=== PATIENT | female | born 1975 | race Hispanic/Latino ===

== ENCOUNTER 2018-02-17 20:44 | Emergency (ER) | payer OTHER ==
[~2018-02-17] VITALS: Ht 157.5 cm; Wt 147.4 kg
--- OUTSIDE RECORDS SUMMARY | 2018-02-17 20:47 | XMS REPORT | Summary of Care ---
Author Author [facility] Organization [facility] Address Unknown Phone Unavailable Encounter ELHAM Saavedra(AMINA) [id number] Date(s): 05/09/16 - 05/09/16 [facility] [address] [place] [address]- [phone] Discharge Disposition: Home or Self Care Attending Physician: Marco Antonio Hernández MD Referring Physician: Marco Antonio Hernández MD Vital Signs 1 2 3 Most recent to oldest [Reference Range]: 157.48 cm (05/07/16 7:46 AM) Height 98.2 DegF (05/07/16 7:50 AM) Temperature Oral [96.4-99.1 DegF] 102/59 mmHg (05/09/16 11:45 AM) 102/58 mmHg (05/09/16 10:30 AM) 96/51 mmHg (05/09/16 10:15 AM) Blood Pressure [90-140/60-90 mmHg] 17 BRMIN (05/09/16 10:15 AM) 18 BRMIN (05/09/16 10:00 AM) 18 BRMIN (05/09/16 9:45 AM) Respiratory Rate [14-20 BRMIN] 86 bpm (05/07/16 7:50 AM) Peripheral Pulse Rate [60-100 bpm] 134.545 kg (05/07/16 7:46 AM) Weight 54.25 m2 (05/07/16 7:46 AM) Body Mass Index Problem List Condition Effective Dates Status Health Status Informant Morbid Active obesity(Confirmed) Obesity(Confirmed) Resolved Allergies, Adverse Reactions, Alerts Substance Reaction Severity Status NKDA Active Medications acetaminophen (ANES) Route: IV, Drug form: INJ, ONCE, Stop date: 05/09/16 8:58:00 PR INTERN Start Date: 05/09/16 Stop Date: 05/09/16 Status: Completed ANES flumazenil 0.2 mg, 2 mL, Route: IVP, Drug form: INJ, PRN, Dosing Weight 134.545, kg, PRN Be nzodiazepine Reversal, Initial dose, Start date: 05/09/16 9:49:00 PR INTERN, Duration: 30 day, Stop date: 06/08/16 10:48:00 CDT Notes: (Same as: Romazicon) Start Date: 05/09/16 Stop Date: 05/10/16 Status: Discontinued ANES HYDROmorphone 0.5 mg, 0.5 mL, Route: IVP, Drug form: INJ, Q5Min, Dosing Weight 134.545, kg, OK N Pain Score 7-10, Start date: 05/09/16 9:49:00 PR INTERN, Duration: 4 doses or times, Stop date: Limited # of times Start Date: 05/09/16 Stop Date: 05/10/16 Status: Discontinued ANES ibuprofen 600 mg, 1 tab, Route: PO, Drug form: TAB, Q6H, Dosing Weight 134.545, kg, PRN Pa in Score 1-3, Start date: 05/09/16 9:49:00 PR INTERN, Duration: 30 day, Stop date: 9:48:00 CDT Notes: (Same as: Motrin)"Do Not Crush" Take with food. Start Date: 05/09/16 Stop Date: 05/10/16 Status: Discontinued ANES ketOROLAC 30 mg, 1 mL, Route: IVP, Drug form: INJ, ONCE, Dosing Weight 134.545, kg, Start date: 05/09/16 9:49:00 PR INTERN, Duration: 1 doses or times, Stop date: 05/09/16 9:49 :00 PR INTERN Notes: (Same as:Toradol) IV bolus must be given >15 seconds. Give IM administration slowly and deeply into the muscle.Not for use > 4 days MEDICATION WASTE Product Size: 30 mgProduct Wasted: ___ mg Start Date: 05/09/16 Stop Date: 05/09/16 Status: Ordered ANES morphine Sulfate 2 mg, 1 mL, Route: IVP, Drug form: INJ, Q5Min, Dosing Weight 134.545, kg, PRN Pa in Score 4-6, Start date: 05/09/16 9:49:00 PR INTERN, Duration: 5 doses or times, Stop date: Limited # of times Notes: (Same as:MORPhine Sulfate) Start Date: 05/09/16 Stop Date: 05/10/16 Status: Discontinued ANES morphine Sulfate 4 mg, 1 mL, Route: IVP, Drug form: SOLN, Q5Min, Dosing Weight 134.545, kg, PRN P ain Score 7-10, Start date: 05/09/16 9:49:00 PR INTERN, Duration: 3 doses or times, St op date: Limited # of times Notes: (Same as:MORPhine Sulfate) Start Date: 05/09/16 Stop Date: 05/10/16 Status: Discontinued ANES naloxone 0.4 mg, 1 mL, Route: IVP, Drug form: INJ, Q2MIN, Dosing Weight 134.545, kg, PRN Narcotic Reversal, Start date: 05/09/16 9:49:00 PR INTERN, Duration: 8 doses or times, Stop date: Limited # of times Notes: Same as Narcan Start Date: 05/09/16 Stop Date: 05/10/16 Status: Discontinued ANES ondansetron 4 mg, 2 mL, Route: IVP, Drug form: INJ, ONCE, Dosing Weight 134.545, kg, PRN Hector sea & Vomiting, Start date: 05/09/16 9:49:00 PR INTERN Notes: (Same as: Zomarilia) MEDICATION WASTE Product Size: 4 mgProduct Was lisa: ___ mg Start Date: 05/09/16 Stop Date: 05/10/16 Status: Discontinued ceFAZolin (ANES) Route: IV, Drug form: INJ, ONCE, Stop date: 05/09/16 9:08:00 PR INTERN Start Date: 05/09/16 Stop Date: 05/09/16 Status: Completed Colace 100 mg oral capsule 100 mg=1 cap, PO, BID, PRN Constipation, # 20 cap, 0 Refill(s), Pharmacy: [id number] Start Date: 05/09/16 Status: Ordered Demerol HCl 50 mg, Route: IV, Q10Min, Dosing Weight 134.545, kg, PRN Pain Score 7-10, Start date: 05/09/16 9:49:00 PR INTERN, Stop date: 05/13/16 9:48:00 PR INTERN Start Date: 05/09/16 Stop Date: 05/10/16 Status: Discontinued fentaNYL 50 microgram, Route: IV, Q5Min, Dosing Weight 134.545, kg, PRN Pain Score 7-10, Start date: 05/09/16 9:49:00 PR INTERN, Duration: 4 doses or times, Stop date: Limited # of times Start Date: 05/09/16 Stop Date: 05/10/16 Status: Discontinued fentaNYL (ANES) Route: IV, Drug form: INJ, ONCE, Stop date: 05/09/16 9:08:00 PR INTERN Start Date: 05/09/16 Stop Date: 05/09/16 Status: Completed glycopyrrolate (ANES) Route: IV, Drug form: INJ, ONCE, Stop date: 05/09/16 9:49:00 PR INTERN Start Date: 05/09/16 Stop Date: 05/09/16 Status: Completed hydrALAZINE 10 mg, Route: IV, PRN, Dosing Weight 134.545, kg, PRN Elevated BP, Start date: 0 05/09/16 9:49:00 PR INTERN, Duration: 30 day, Stop date: 06/08/16 10:48:00 CDT Start Date: 05/09/16 Stop Date: 05/10/16 Status: Discontinued hydromorphone (ANES) Route: IV, Drug form: INJ, ONCE, Stop date: 05/09/16 9:49:00 PR INTERN Start Date: 05/09/16 Stop Date: 05/09/16 Status: Completed Lactated Ringers Injection IV 1000 mL 1,000 mL, Rate: 25 ml/hr, Infuse over: 40 hr, Route: IV, Dosing Weight 134.545 k g, Total Volume: 1,000, Start date: 05/09/16 9:10:00 PR INTERN, Duration: 30 day, Stop date: 06/08/16 9:09:00 CDT Start Date: 05/09/16 Stop Date: 05/09/16 Status: Discontinued lidocaine (ANES) Route: IV, Drug form: INJ, ONCE, Stop date: 05/09/16 9:08:00 PR INTERN Start Date: 05/09/16 Stop Date: 05/09/16 Status: Completed LR 1000 mL INJ (ANES) Route: IV, Total Volume: 1,000, Start date: 05/09/16 8:11:00 PR INTERN, Stop date: 03/27 9:11:00 PR INTERN Start Date: 05/09/16 Stop Date: 05/09/16 Status: Completed metoclopramide (ANES) Route: IV, Drug form: INJ, ONCE, Stop date: 05/09/16 9:08:00 PR INTERN Start Date: 05/09/16 Stop Date: 05/09/16 Status: Completed midazolam (ANES) Route: IV, Drug form: SOLN, ONCE, Stop date: 05/09/16 8:42:00 PR INTERN Start Date: 05/09/16 Stop Date: 05/09/16 Status: Completed neostigmine (ANES) Route: IV, Drug form: INJ, ONCE, Stop date: 05/09/16 9:49:00 PR INTERN Start Date: 05/09/16 Stop Date: 05/09/16 Status: Completed ondansetron (ANES) Route: IV, Drug form: INJ, ONCE, Stop date: 05/09/16 9:18:00 PR INTERN Start Date: 05/09/16 Stop Date: 05/09/16 Status: Completed oxyCODONE 5 mg oral tablet 10 mg, Route: PO, Drug form: TAB, ONCE, Dosing Weight 134.545, kg, PRN Pain Scor e 7-10, Start date: 05/09/16 10:34:00 PR INTERN Start Date: 05/09/16 Stop Date: 05/09/16 Status: Completed promethazine 6.25 mg, Route: IVPB, PRN, Dosing Weight 134.545, kg, PRN as needed for nausea/v omiting, Start date: 05/09/16 9:49:00 PR INTERN, Duration: 30 day, Stop date: 06/08/16 10:48:00 CDT Start Date: 05/09/16 Stop Date: 05/10/16 Status: Discontinued propofol (ANES) Route: IV, Drug form: INJ, ONCE, Stop date: 05/09/16 9:08:00 PR INTERN Start Date: 05/09/16 Stop Date: 05/09/16 Status: Completed rocuronium (ANES) Route: IV, Drug form: INJ, ONCE, Stop date: 05/09/16 9:08:00 PR INTERN Start Date: 05/09/16 Stop Date: 05/09/16 Status: Completed ropivacaine 400 mL Dosing: Per Nerve Block Dosing Order, Route: NERVE BLOCK, Start date: 05/09/16 1 0:12:00 PR INTERN 400 mL, Dosing Weight 134.545, kg, Duration: 30 day, Stop date: 05/11 03/27 11:11:00 CDT Start Date: 05/09/16 Stop Date: 05/10/16 Status: Discontinued Tylenol with Codeine #3 oral tablet 1 tab, PO, Q6H, PRN pain, X 7 day, # 28 tab, 0 Refill(s) Start Date: 05/09/16 Stop Date: 05/16/16 Status: Ordered Results ELECTROLYTES Most recent to 1 oldest [Reference Range]: Sodium Lvl [135-145 137 mEq/L mEq/L] (05/07/16 8:08 AM) Potassium Lvl 4.1 mEq/L [3.5-5.1 mEq/L] (05/07/16 8:08 AM) Chloride Lvl [95-109 103 mEq/L mEq/L] (05/07/16 8:08 AM) CO2 [24-32 mEq/L] 25 mEq/L (05/07/16 8:08 AM) AGAP [10.0-20.0 13.1 mEq/L mEq/L] (05/07/16 8:08 AM) CHEM PANEL Most recent to 1 oldest [Reference Range]: Creatinine Lvl 0.78 mg/dL [0.50-1.40 mg/dL] (05/07/16 8:08 AM) eGFR 96 mL/min/1.73m2 1 *NA* (05/07/16 8:08 AM) BUN [7-22 mg/dL] 15 mg/dL (05/07/16 8:08 AM) B/C Ratio [6-25] 19 (05/07/16 8:08 AM) Glucose Lvl [70-99 98 mg/dL mg/dL] (05/07/16 8:08 AM) Total Protein 7.9 g/dL [6.4-8.4 g/dL] (05/07/16 8:08 AM) Albumin Lvl [3.5-5.0 3.9 g/dL g/dL] (05/07/16 8:08 AM) Globulin [2.7-4.2 4.0 g/dL g/dL] (05/07/16 8:08 AM) A/G Ratio [0.7-1.6] 1.0 (05/07/16 8:08 AM) Calcium Lvl 8.7 mg/dL [8.5-10.5 mg/dL] (05/07/16 8:08 AM) ALT [0-65 unit/L] 22 unit/L (05/07/16 8:08 AM) AST [0-37 unit/L] 14 unit/L (05/07/16 8:08 AM) Alk Phos [39-136 91 unit/L unit/L] (05/07/16 8:08 AM) Bili Total [0.2-1.3 0.9 mg/dL mg/dL] (05/07/16 8:08 AM) 1Result Comment: The eGFR is calculated using the CKD-EPI formula. In most young, healthy individuals the eGFR will be >90 mL/min/1.73m2. The eGFR declines with age. An eGFR of 60-89 may be normal in some populations, particularly the elderly, for whom the CKD-EPI formula has not been extensively validated. Use of the eGFR is not recommended in the following populations: Individuals with unstable creatinine concentrations, including patients and those with serious co-morbid conditions. Patients with extremes in muscle mass or diet. The data above are obtained from the National Kidney Disease Education Program ( NKDEP) which additionally recommends that when the eGFR is used in patients with extremes of body mass index for purposes of drug dosing, the eGFR should be mul tiplied by the estimated BMI. URINE CHEM Most recent to 1 oldest [Reference Range]: U Preg [Negative] Negative (05/07/16 8:08 AM) HEMATOLOGY Most recent to 1 oldest [Reference Range]: WBC [3.7-10.4 K/CMM] 10.4 K/CMM (05/07/16 8:08 AM) RBC [4.20-5.40 4.33 M/CMM M/CMM] (05/07/16 8:08 AM) Hgb [12.0-16.0 g/dL] 12.1 g/dL (05/07/16 8:08 AM) Hct [36.0-48.0 %] 36.8 % (05/07/16 8:08 AM) MCV [80.0-98.0 fL] 85.0 fL (05/07/16 8:08 AM) MCH [27.0-31.0 pg] 27.8 pg (05/07/16:08 AM) MCHC [32.0-36.0 32.8 g/dL g/dL] (05/07/16 8:08 AM) RDW [11.5-14.5 %] 14.7 % *HI* (05/07/16 8:08 AM) Platelet [133-450 258 K/CMM K/CMM] (05/07/16 8:08 AM) MPV [7.4-10.4 fL] 8.9 fL (05/07/16 8:08 AM) Segs [45.0-75.0 %] 68.3 % (05/07/16 8:08 AM) Lymphocytes 23.2 % [20.0-40.0 %] (05/07/16 8:08 AM) Monocytes [2.0-12.0 4.7 % %] (05/07/16 8:08 AM) Eosinophils [0.0-4.0 3.4 % %] (05/07/16 8:08 AM) Basophils [0.0-1.0 0.4 % %] (05/07/16 8:08 AM) Segs-Bands # 7.1 K/CMM [1.5-8.1 K/CMM] (05/07/16 8:08 AM) Lymphocytes # 2.4 K/CMM [1.0-5.5 K/CMM] (05/07/16 8:08 AM) Monocytes # [0.0-0.8 0.5 K/CMM K/CMM] (05/07/16 8:08 AM) Eosinophils # 0.4 K/CMM [0.0-0.5 K/CMM] (05/07/16 8:08 AM) Immunizations Not Given Vaccine Date Status Refusal Reason pneumococcal 13-valent vaccine 01/19/16 Not Given Patient Refuses Procedures Procedure Date Related Diagnosis Body Site Colonoscopy 01/16/16 Esophagogastroduodenoscopy 01/16/16 Social History Social History Type Response Substance Abuse Use: None. Alcohol Never Smoking Status Never smoker; Ready to change: No; Concerns about tobacco use in household: No; Exposure to Tobacco Smoke None; Cigarette Smoking Last 365 Days No; Reg Smoking Cessation Counseling No Assessment and Plan No data available for this section
--- OUTSIDE RECORDS SUMMARY | 2018-02-17 20:47 | XMS REPORT ---
Author Author [facility] Address Unknown Phone Unavailable Care Team Providers Care Business Trainer Name Role Phone Unavailable Unavailable Payers Payer Name Policy Type Policy Number Effective Date Expiration Date Problems This patient has no known problems. Allergies, Adverse Reactions, Alerts Allergy Name Allergy Type Status Severity Reaction(s) Onset Date Inactive Date Treating Clinician Comments No Known Allergies DA Active U 2017-04-09 00:00:00 Medications This patient has no known medications.
--- OUTSIDE RECORDS SUMMARY | 2018-02-17 20:47 | XMS REPORT | Summary of Care ---
Author Author [facility] Organization [facility] Address Unknown Phone Unavailable Encounter ELHAM Saavedra(AMINA) [id number] Date(s): 12/24/15 - 12/24/15 [id number] [place] [address]- Discharge Diagnosis: Abdominal pain Discharge Disposition: Home or Self Care Attending Physician: Gumaro Santamaria MD Vital Signs Most recent to 1 2 oldest [Reference Range]: Temperature Oral 98.4 DegF [96.4-99.1 DegF] (12/24/15 12:04 AM) Blood Pressure 118/66 mmHg 120/84 mmHg [90-140/60-90 mmHg] (12/24/15 4:00 AM) (12/24/15 12:04 AM) Respiratory Rate 18 BRMIN 20 BRMIN [14-20 BRMIN] (12/24/15 4:00 AM) (12/24/15 12:04 AM) Peripheral Pulse 112 bpm Rate [60-100 bpm] *HI* (12/24/15 12:04 AM) Weight 128.9 kg (12/24/15 12:04 AM) Problem List Condition Effective Dates Status Health Status Informant Endometriosis(Confir Resolved med) Allergies, Adverse Reactions, Alerts Substance Reaction Severity Status NKDA Active Medications morphine Sulfate 4 mg, 1 mL, Route: IVP, Drug form: INJ, ONCE, Dosing Weight 128.9, kg, Priority: STAT, Start date: 12/24/15 0:42:00 CDT, Stop date: 12/24/15 0:42:00 CDT Notes: (Same as:MORPhine Sulfate) Start Date: 12/24/15 Stop Date: 12/24/15 Status: Completed ondansetron 4 mg, 2 mL, Route: IVP, Drug form: INJ, ONCE, Dosing Weight 128.9, kg, Priority: STAT, Start date: 12/24/15 0:42:00 CDT, Stop date: 12/24/15 0:42:00 CDT Notes: (Same as: Horace) MEDICATION WASTE Product Size: 4 mgProduct Was lisa: ___ mg Start Date: 12/24/15 Stop Date: 12/24/15 Status: Completed tramadol 50 mg oral tablet 50 mg=1 tab, PO, Q8H, PRN as needed for pain, X 5 day, # 15 tab, 0 Refill(s) Start Date: 12/24/15 Stop Date: 12/29/15 Status: Ordered Results ELECTROLYTES Most recent to 1 oldest [Reference Range]: Sodium Lvl [135-145 137 mEq/L mEq/L] (12/24/15 12:50 AM) Potassium Lvl 3.9 mEq/L [3.5-5.1 mEq/L] (12/24/15 12:50 AM) Chloride Lvl [95-109 104 mEq/L mEq/L] (12/24/15 12:50 AM) CO2 [24-32 mEq/L] 25 mEq/L (12/24/15 12:50 AM) AGAP [10.0-20.0 11.9 mEq/L mEq/L] (12/24/15 12:50 AM) CHEM PANEL Most recent to 1 oldest [Reference Range]: Creatinine Lvl 0.86 mg/dL [0.50-1.40 mg/dL] (12/24/15 12:50 AM) eGFR 86 mL/min/1.73m2 1 *NA* (12/24/15 12:50 AM) BUN [7-22 mg/dL] 15 mg/dL (12/24/15 12:50 AM) B/C Ratio [6-25] 17 (12/24/15 12:50 AM) Glucose Lvl [70-99 130 mg/dL mg/dL] *HI* (12/24/15 12:50 AM) Total Protein 7.8 g/dL [6.4-8.4 g/dL] (12/24/15 12:50 AM) Albumin Lvl [3.5-5.0 3.6 g/dL g/dL] (12/24/15 12:50 AM) Globulin [2.7-4.2 4.2 g/dL g/dL] (12/24/15 12:50 AM) A/G Ratio [0.7-1.6] 0.9 (12/24/15 12:50 AM) Calcium Lvl 8.9 mg/dL [8.5-10.5 mg/dL] (12/24/15 12:50 AM) ALT [0-65 unit/L] 39 unit/L (12/24/15 12:50 AM) AST [0-37 unit/L] 22 unit/L (12/24/15 12:50 AM) Alk Phos [39-136 89 unit/L unit/L] (12/24/15 12:50 AM) Bili Total [0.2-1.3 0.7 mg/dL mg/dL] (12/24/15 12:50 AM) Lipase Lvl [73-393 154 unit/L unit/L] (12/24/15 12:50 AM) 1Result Comment: The eGFR is calculated [...] oldest [Reference Range]: U Preg [Negative] Negative (12/24/15 12:50 AM) URINE AND STOOL Most recent to 1 oldest [Reference Range]: UA Turbidity [Clear] Marked *ABN* (12/24/15 12:50 AM) UA Color [Yellow] Yellow *NA* (12/24/15 12:50 AM) UA pH [5.0-8.0] 5.0 (12/24/15 12:50 AM) UA Spec Grav 1.019 [<=1.030] (12/24/15 12:50 AM) UA Glucose [Negative Negative mg/dL mg/dL] *NA* (12/24/15 12:50 AM) UA Blood [Negative] Negative (12/24/15 12:50 AM) UA Ketones Negative *NA* (12/24/15 12:50 AM) UA Protein [Negative Negative mg/dL mg/dL] (12/24/15 12:50 AM) UA Urobilinogen <=1.0 mg/dL [0.1-1.0 mg/dL] *NA* (12/24/15 12:50 AM) UA Bili [Negative] Negative *NA* (12/24/15 12:50 AM) UA Leuk Est Trace [Negative] *ABN* (12/24/15 12:50 AM) UA Nitrite Positive [Negative] *ABN* (12/24/15 12:50 AM) UA WBC [0-5 /HPF] 7 /HPF *HI* (12/24/15 12:50 AM) UA RBC [0-2 /HPF] 1 /HPF (12/24/15 12:50 AM) UA Bacteria [None Few /HPF Seen /HPF] *NA* (12/24/15 12:50 AM) UA Sq Epi [Few /LPF] Many /LPF *ABN* (12/24/15 12:50 AM) UA Mucus [None Seen Few /LPF /LPF] *NA* (12/24/15 12:50 AM) HEMATOLOGY Most recent to 1 oldest [Reference Range]: WBC [3.7-10.4 K/CMM] 11.3 K/CMM *HI* (12/24/15 12:50 AM) RBC [4.20-5.40 4.40 M/CMM M/CMM] (12/24/15 12:50 AM) Hgb [12.0-16.0 g/dL] 12.0 g/dL (12/24/15 12:50 AM) Hct [36.0-48.0 %] 36.7 % (12/24/15 12:50 AM) MCV [80.0-98.0 fL] 83.4 fL (12/24/15 12:50 AM) MCH [27.0-31.0 pg] 27.2 pg (12/24/15 12:50 AM) MCHC [32.0-36.0 32.7 g/dL g/dL] (12/24/15 12:50 AM) RDW [11.5-14.5 %] 15.1 % *HI* (12/24/15 12:50 AM) Platelet [133-450 247 K/CMM K/CMM] (12/24/15 12:50 AM) MPV [7.4-10.4 fL] 8.2 fL (12/24/15 12:50 AM) Segs [45.0-75.0 %] 65.5 % (12/24/15 12:50 AM) Lymphocytes 27.5 % [20.0-40.0 %] (12/24/15 12:50 AM) Monocytes [2.0-12.0 4.7 % %] (12/24/15 12:50 AM) Eosinophils [0.0-4.0 1.8 % %] (12/24/15 12:50 AM) Basophils [0.0-1.0 0.5 % %] (12/24/15 12:50 AM) Segs-Bands # 7.4 K/CMM [1.5-8.1 K/CMM] (12/24/15 12:50 AM) Lymphocytes # 3.1 K/CMM [1.0-5.5 K/CMM] (12/24/15 12:50 AM) Monocytes # [0.0-0.8 0.5 K/CMM K/CMM] (12/24/15 12:50 AM) Eosinophils # 0.2 K/CMM [0.0-0.5 K/CMM] (12/24/15 12:50 AM) Basophils # [0.0-0.2 0.1 K/CMM K/CMM] (12/24/15 12:50 AM) Immunizations No data available for this section Procedures No data available for this section Social History Social History Type Response Smoking Status Never smoker; Ready to change: No; Concerns about tobacco use in household: No; Exposure to Tobacco Smoke None; Cigarette Smoking Last 365 Days No; Reg Smoking Cessation Counseling No Assessment and Plan No data available for this section
--- OUTSIDE RECORDS SUMMARY | 2018-02-17 20:47 | XMS REPORT | Continuity of Care Document ---
Author Author [facility] Interface Address Unknown Phone Unavailable Problems Problem Status Onset Date Classification Date Reported Comments Source UNK Active 05/03/2016 [facility] ABD PAIN Active 01/16/2016 [facility] ABDOMINAL PAIN, FAILED OP MANAGEMENT Active 01/16/2016 [facility] Discharge Diagnosis: Abdominal pain, LLQ 01/10/2016 01/13/2016 [facility] Discharge Diagnosis: Uterine leiomyoma 01/10/2016 01/13/2016 [facility] ABDOMINAL PAIN Active 01/09/2016 [facility] Discharge Diagnosis: Abdominal pain 12/24/2015 12/27/2015 [facility] Discharge Diagnosis: Abdominal wall pain in left flank 09/15/2015 09/18/2015 [facility] Final: Pain, unspecified 01/22/2016 [facility] Endometriosis Resolved Problem 01/13/2016 [facility] Morbid obesity Active Problem 05/12/2016 [facility] Obesity Resolved Problem 05/12/2016 [facility] PAIN, UNSPECIFIED Active [facility] GENERALIZED ABDOMINAL PAIN Active [facility] Medications Medication Details Route Status Patient Instructions Ordering Provider Order Date Source Oxycodone Hydrochloride 5 MG Oral Tablet 10 mg, Route: PO, Drug form: TAB, ONCE, Dosing Weight 134.545, kg, PRN Pain Score 7-10, Start date: 05/09/16 10:34:00 MOP WORKER Inactive 05/09/2016 [facility] ropivacaine Dosing: Per Nerve Block Dosing Order, Route: NERVE BLOCK, Start date: 05/09/16 10:12:00 MOP WORKER 400 mL, Dosing Weight 134.545, kg, Duration: 30 day, Stop date: 06/08/16 11:11:00 CDT No Longer Active 05/09/2016 [facility] neostigmine (ANES) Route: IV, Drug form: INJ, ONCE, Stop date: 05/09/16 9:49:00 MOP WORKER Inactive 05/09/2016 [facility] hydromorphone (ANES) Route: IV, Drug form: INJ, ONCE, Stop date: 05/09/16 9:49:00 MOP WORKER Inactive 05/09/2016 [facility] glycopyrrolate (ANES) Route: IV, Drug form: INJ, ONCE, Stop date: 05/09/16 9:49:00 MOP WORKER Inactive 05/09/2016 [facility] Hydralazine 10 mg, Route: IV, PRN, Dosing Weight 134.545, kg, PRN Elevated BP, Start date: 05/09/16 9:49:00 MOP WORKER, Duration: 30 day, Stop date: 06/08/16 10:48:00 CDT No Longer Active 05/09/2016 [facility] Promethazine 6.25 mg, Route: IVPB, PRN, Dosing Weight 134.545, kg, PRN as needed for nausea/vomiting, Start date: 05/09/16 9:49:00 MOP WORKER, Duration: 30 day, Stop date: 06/08/16 10:48:00 CDT No Longer Active 05/09/2016 [facility] Fentanyl 50 microgram, Route: IV, Q5Min, Dosing Weight 134.545, kg, PRN Pain Score 7-10, Start date: 05/09/16 9:49:00 MOP WORKER, Duration: 4 doses or times, Stop date: Limited # of times No Longer Active 05/09/2016 [facility] Demerol HCl 50 mg, Route: IV, Q10Min, Dosing Weight 134.545, kg, PRN Pain Score 7-10, Start date: 05/09/16 9:49:00 MOP WORKER, Stop date: 05/13/16 9:48:00 MOP WORKER No Longer Active 05/09/2016 [facility] Ibuprofen 600 mg, 1 tab, Route: PO, Drug form: TAB, Q6H, Dosing Weight 134.545, kg, PRN Pain Score 1-3, Start date: 05/09/16 9:49:00 MOP WORKER, Duration: 30 day, Stop date: 06/08/16 9:48:00 CDTNotes: (Same as: Motrin) "Do Not Crush" Take with food. No Longer Active 05/09/2016 [facility] Ketorolac 30 mg, 1 mL, Route: IVP, Drug form: INJ, ONCE, Dosing Weight 134.545, kg, Start date: 05/09/16 9:49:00 MOP WORKER, Duration: 1 doses or times, Stop date: 05/09/16 9:49:00 CSTNotes: (Same as:Toradol) IV bolus must be given >15 seconds. Give IM administration slowly and deeply into the muscle. Not for use > 4 days MEDICATION WASTE Product Size: 30 mg Product Wasted: ___ mg Inactive 05/09/2016 [facility] Naloxone 0.4 mg, 1 mL, Route: IVP, Drug form: INJ, Q2MIN, Dosing Weight 134.545, kg, PRN Narcotic Reversal, Start date: 05/09/16 9:49:00 MOP WORKER, Duration: 8 doses or times, Stop date: Limited # of timesNotes: Same as Narcan No Longer Active 05/09/2016 [facility] Flumazenil 0.2 mg, 2 mL, Route: IVP, Drug form: INJ, PRN, Dosing Weight 134.545, kg, PRN Benzodiazepine Reversal, Initial dose, Start date: 05/09/16 9:49:00 MOP WORKER, Duration: 30 day, Stop date: 06/08/16 10:48:00 C DTNotes: (Same as: Romazicon) No Longer Active 05/09/2016 [facility] Morphine 2 mg, 1 mL, Route: IVP, Drug form: INJ, Q5Min, Dosing Weight 134.545, kg, PRN Pain Score 4-6, Start date: 05/09/16 9:49:00 MOP WORKER, Duration: 5 doses or times, Stop date: Limited # of timesNotes: (Same a s:MORPhine Sulfate) No Longer Active 05/09/2016 [facility] Hydromorphone 0.5 mg, 0.5 mL, Route: IVP, Drug form: INJ, Q5Min, Dosing Weight 134.545, kg, PRN Pain Score 7-10, Start date: 05/09/16 9:49:00 MOP WORKER, Duration: 4 doses or times, Stop date: Limited # of times No Longer Active 05/09/2016 [facility] Ondansetron 4 mg, 2 mL, Route: IVP, Drug form: INJ, ONCE, Dosing Weight 134.545, kg, PRN Nausea & Vomiting, Start date: 05/09/16 9:49:00 CSTNotes: (Same as: Zofran) MEDICATION WASTE Product Size: 4 mg Product Wasted: ___ mg No Longer Active 05/09/2016 [facility] Docusate Sodium 100 MG Oral Capsule [Colace] 100 mg=1 cap, PO, BID, PRN Constipation, # 20 cap, 0 Refill(s), Pharmacy: [facility]/pharmacy #[id number] Active 05/09/2016 [facility] Acetaminophen 300 MG / Codeine Phosphate 30 MG Oral Tablet [Tylenol with Codeine #3] 1 tab, PO, Q6H, PRN pain, X 7 day, # 28 tab, 0 Refill(s) Active 05/09/2016 [facility] ondansetron (ANES) Route: IV, Drug form: INJ, ONCE, Stop date: 05/09/16 9:18:00 MOP WORKER Inactive 05/09/2016 [facility] Calcium Chloride 0.0014 MEQ/ML / Potassium Chloride 0.004 MEQ/ML / Sodium Chloride 0.103 MEQ/ML / Sodium Lactate 0.028 MEQ/ML Injectable Solution 1,000 mL, Rate: 25 ml/hr, Infuse over: 40 hr, Route: IV, Dosing Weight 134.545 kg, Total Volume: 1,000, Start date: 05/09/16 9:10:00 MOP WORKER, Duration: 30 day, Stop date: 06/08/16 9:09:00 CDT Inactive 05/09/2016 [facility] rocuronium (ANES) Route: IV, Drug form: INJ, ONCE, Stop date: 05/09/16 9:08:00 MOP WORKER Inactive 05/09/2016 [facility] metoclopramide (ANES) Route: IV, Drug form: INJ, ONCE, Stop date: 05/09/16 9:08:00 MOP WORKER Inactive 05/09/2016 [facility] propofol (ANES) Route: IV, Drug form: INJ, ONCE, Stop date: 05/09/16 9:08:00 MOP WORKER Inactive 05/09/2016 [facility] ceFAZolin (ANES) Route: IV, Drug form: INJ, ONCE, Stop date: 05/09/16 9:08:00 MOP WORKER Inactive 05/09/2016 [facility] fentaNYL (ANES) Route: IV, Drug form: INJ, ONCE, Stop date: 05/09/16 9:08:00 MOP WORKER Inactive 05/09/2016 [facility] lidocaine (ANES) Route: IV, Drug form: INJ, ONCE, Stop date: 05/09/16 9:08:00 MOP WORKER Inactive 05/09/2016 [facility] acetaminophen (ANES) Route: IV, Drug form: INJ, ONCE, Stop date: 05/09/16 8:58:00 MOP WORKER Inactive 05/09/2016 [facility] midazolam (ANES) Route: IV, Drug form: SOLN, ONCE, Stop date: 05/09/16 8:42:00 MOP WORKER Inactive 05/09/2016 [facility] LR 1000 mL INJ (ANES) Route: IV, Total Volume: 1,000, Start date: 05/09/16 8:11:00 MOP WORKER, Stop date: 05/09/16 9:11:00 MOP WORKER Inactive 05/09/2016 [facility] pantoprazole 40 mg, 1 tab, Route: PO, Drug form: ECTAB, Before Breakfast, Dosing Weight 135.909, kg, Start date: 01/20/16 7:30:00 MOP WORKER, Duration: 30 day, Stop date: 02/18/16 7:30:00 CSTNotes: Tablet should not be chewed or crushed. (Same as: Protonix) No Longer Active 01/20/2016 [facility] Streptococcus pneumoniae serotype 1 capsular antigen diphtheria [id number] protein conjugate vaccine / Streptococcus pneumoniae serotype 14 capsular antigen diphtheria [id number] protein conjugate vaccine / Streptococcus pneumoniae serotype 18C capsular antigen d 0.5 mL, Route: IM, Drug Form: INJ, Daily, Start date: 01/19/16 9:00:00 MOP WORKER, Duration: 1 doses or times, Stop date: 01/19/16 9:00:00 CSTNotes: Lightly roll vial (DO NOT SHAKE) before administration. (Same as: Prevnar 13) Inactive 01/19/2016 [facility] tramadol hydrochloride 50 MG Oral Tablet 50 mg=1 tab, PO, BID, PRN Pain Score 4-6, X 15 day, # 30 tab, 0 Refill(s) Active 01/19/2016 [facility] Ciprofloxacin 500 MG Oral Tablet [Cipro] 500 mg=1 tab, PO, Q12H, X 7 day, # 14 tab, 0 Refill(s) Active 01/19/2016 [facility] pantoprazole 40 mg oral enteric coated tablet 40 mg=1 tab, PO, Before Breakfast, # 30 tab, 0 Refill(s) Active 01/19/2016 [facility] hydrocortisone acetate 25 MG Rectal Suppository [Anusol HC] 25 mg=1 supp, MD, BID, X 14 day, # 28 supp, 0 Refill(s) Active 01/19/2016 [facility] hydrocortisone acetate 25 MG Rectal Suppository [Anusol HC] 25 mg, 1 supp, Route: MD, BID, Drug form: SUPP, Start date: 01/18/16 17:00:00 MOP WORKER, Duration: 7 day, Stop date: 01/25/16 9:00:00 CSTNotes: (Same as: Anusol- HC, Hemorrhoidal HC) No Longer Active 01/18/2016 [facility] Sodium Chloride 0.154 MEQ/ML Injectable Solution 1,000 mL, Rate: 25 ml/hr, Infuse over: 40 hr, Route: IV, Dosing Weight 135.909 kg, Total Volume: 1,000, Start date: 01/18/16 11:00:00 MOP WORKER, Duration: 1 day, Stop date: 01/19/16 10:59:00 MOP WORKER Inactive 01/18/2016 [facility] Citrate of Magnesia 300 ml, Route: PO, Drug Form: LIQ, Dosing Weight 135.909, kg, ONCE, Start date: 01/17/16 20:16:00 MOP WORKER, Stop date: 01/17/16 20:16:00 CSTNotes: (Same as: Citrate of Magnesia) Concentration: 1.745 gm / 30 mL Inactive 01/18/2016 [facility] Phenergan 25 mg, 1 supp, Route: MD, Drug form: SUPP, ONCE, Dosing Weight 135.909, kg, Start date: 01/17/16 17:00:00 MOP WORKER, Stop date: 01/17/16 17:00:00 CSTNotes: (Same as: Phenergan) Inactive 01/17/2016 [facility] magnesium citrate 58.2 MG/ML Oral Solution 300 ml, Route: PO, Drug Form: LIQ, Dosing Weight 135.909, kg, ONCE, Start date: 01/17/16 9:07:00 MOP WORKER, Stop date: 01/17/16 9:07:00 CSTNotes: (Same as: Citrate of Magnesia) Concentration: 1.745 gm / 30 mL Inactive 01/17/2016 [facility] Dulcolax Laxative 30 mg, 6 tab, Route: PO, Drug form: ECTAB, ONCE, Dosing Weight 135.909, kg, Start date: 01/17/16 7:55:00 MOP WORKER, Stop date: 01/17/16 7:55:00 CSTNotes: (Same As: Dulcolax, Correctol) (Do Not Crush) "Do Not Crush" Inactive 01/17/2016 [facility] magnesium citrate 58.2 MG/ML Oral Solution 240 mL, Route: PO, Drug Form: LIQ, Dosing Weight 135.909, kg, ONCE, Start date: 01/17/16 7:55:00 MOP WORKER, Stop date: 01/17/16 7:55:00 CSTNotes: (Same as: Citrate of Magnesia) Concentration: 1.745 gm / 30 mL Inactive 01/17/2016 [facility] Sodium Chloride 0.154 MEQ/ML Injectable Solution 1,000 mL, Rate: 80 ml/hr, Infuse over: 12.5 hr, Route: IV, Dosing Weight 135.909 kg, Total Volume: 1,000, Start date: 01/16/16 19:53:00 MOP WORKER, Stop date: 02/15/16 19:52:00 MOP WORKER No Longer Active 01/17/2016 [facility] Saline Flush 0.9% 10 ml, Route: IVP, Drug Form: INJ, Dosing Weight 135.909, kg, PRN, PRN Line Flush, Start date: 01/16/16 19:53:00 MOP WORKER, Duration: 30 day, Stop date: 02/15/16 19:52:00 CSTNotes: (Same as: BD Posiflush) No Longer Active 01/17/2016 [facility] Acetaminophen 325 MG / Hydrocodone Bitartrate 5 MG Oral Tablet 1 tab, Route: PO, Drug Form: TAB, Dosing Weight 137.273, kg, QID, PRN Pain Score 4-6, Start date: 01/16/16 19:53:00 MOP WORKER, Duration: 30 day, Stop date: 02/15/16 19:52:00 CSTNotes: (Same as: [place] 325/5) Do not exceed 4gm/day of acetaminophen. No Longer Active 01/17/2016 [facility] Acetaminophen 650 mg, 2 tab, Route: PO, Drug form: TAB, Q6H, Dosing Weight 137.273, kg, PRN Pain 1-3/Temp > 100.4 F, Start date: 01/16/16 19:53:00 MOP WORKER, Duration: 30 day, Stop date: 02/15/16 19:52:00 CSTNotes: Do not exceed 4 gm/day. (Same as: Tylenol) No Longer Active 01/17/2016 [facility] Ondansetron 4 mg, 2 mL, Route: IVP, Drug form: INJ, Q4H, Dosing Weight 137.273, kg, PRN Nausea & Vomiting, Start date: 01/16/16 19:53:00 MOP WORKER, Duration: 30 day, Stop date: 02/15/16 19:52:00 CSTNotes: (Same as: Horace) MEDICATION WASTE Product Size: 4 mg Product Wasted: ___ mg No Longer Active 01/17/2016 [facility] Morphine 2 mg, 1 mL, Route: IVP, Drug form: INJ, Q4H, Dosing Weight 135.909, kg, PRN Pain Score 7-10, Start date: 01/16/16 19:53:00 MOP WORKER, Duration: 30 day, Stop date: 02/15/16 19:52:00 CSTNotes: (Same as:MORPhine Sulfate) No Longer Active 01/17/2016 [facility] polyethylene glycol 3350 with electrolytes 4 Liter, Route: PO, Drug Form: PDR/REC, Dosing Weight 135.909, kg, ONCE, Start date: 01/16/16 18:00:00 MOP WORKER, Duration: 1 doses or times, Stop date: 01/16/16 18:00:00 CSTNotes: (polyethylene glycol electrolyte solution 4 Liter bottle) (Same as: Golytely, Colyte) Inactive 01/17/2016 [facility] Bisacodyl 20 mg, 4 tab, Route: PO, Drug form: ECTAB, ONCE, Dosing Weight 135.909, kg, Start date: 01/16/16 17:00:00 MOP WORKER, Stop date: 01/16/16 17:00:00 CSTNotes: (Same As: Dulcolax, Correctol) (Do Not Crush) "Do Not Crush" Inactive 01/16/2016 [facility] Metronidazole 500 mg, 100 mL, Route: IVPB, Drug form: INJ, ABXQ8H, Dosing Weight 137.273, kg, Start date: 01/16/16 17:00:00 MOP WORKER, Duration: 30 day, Stop date: 02/15/16 13:00:00 CSTNotes: (Same as: Flagjesi) Avoid alcohol. No Longer Active 01/16/2016 [facility] 200 ML Ciprofloxacin 2 MG/ML Injection [Cipro] 400 mg, 200 mL, Route: IVPB, Drug form: INJ, [id number], Dosing Weight 137.273, kg, Start date: 01/16/16 17:00:00 MOP WORKER, Duration: 30 day, Stop date: 02/15/16 10:00:00 CSTNotes: Do not refrigerate No Longer Active 01/16/2016 [facility] Metoclopramide 10 MG Oral Tablet 10 mg, 1 tab, Route: PO, Drug form: TAB, ONCE, Dosing Weight 135.909, kg, Start date: 01/16/16 16:16:00 MOP WORKER, Stop date: 01/16/16 16:16:00 CSTNotes: (Same as: Reglan) Take 30 min before meals Inactive 01/16/2016 [facility] Ondansetron 4 MG Disintegrating Tablet [Zofran] 4 mg=1 tab, PO, BID, PRN Nausea and Vomiting, Dissolve tab under tongue, X 5 day, # 10 tab, 0 Refill(s) Active 01/10/2016 [facility] Zofran 4 mg, 2 mL, Route: IVP, Drug form: INJ, ONCE, Dosing Weight 137.273, kg, Priority: STAT, Start date: 01/10/16 3:26:00 CDT, Stop date: 01/10/16 3:26:00 CDTNotes: (Same as: Zofran) MEDICATION WASTE Product Size: 4 mg Product Wasted: ___ mg Inactive 01/10/2016 [facility] Saline Flush 0.9% 10 mL, Route: IVP, Drug Form: INJ, Dosing Weight 137.273, kg, PRN, PRN Line Flush, Start date: 01/10/16 0:43:00 CDT, Duration: 30 day, Stop date: 02/08/16 23:42:00 CSTNotes: (Same as: BD Posiflush) Inactive 01/10/2016 [facility] Sodium Chloride 0.154 MEQ/ML Injectable Solution 1,000 mL, 2,000 ml/hr, Infuse Over: 30 minutes, Route: IV, 1,000, Drug form: INJ, ONCE, Priority: STAT, Dosing Weight 137.273 kg, Start date: 01/10/16 0:43:00 CDT, Duration: 1 doses or times, Stop date: 01/10/16 0:43:00 CDT Inactive 01/10/2016 [facility] Hydromorphone 1 mg, 1 mL, Route: IVP, Drug form: INJ, ONCE, Dosing Weight 137.273, kg, Priority: STAT, Start date: 01/10/16 0:43:00 CDT, Stop date: 01/10/16 0:43:00 CDTNotes: Same as: Dilaudid Inactive 01/10/2016 [facility] tramadol hydrochloride 50 MG Oral Tablet 50 mg=1 tab, PO, Q8H, PRN as needed for pain, X 5 day, # 15 tab, 0 Refill(s) Active 12/24/2015 [facility] Morphine 4 mg, 1 mL, Route: IVP, Drug form: INJ, ONCE, Dosing Weight 128.9, kg, Priority: STAT, Start date: 12/24/15 0:42:00 CDT, Stop date: 12/24/15 0:42:00 CDTNotes: (Same as:MORPhine Sulfate) Inactive 12/24/2015 [facility] Ondansetron 4 mg, 2 mL, Route: IVP, Drug form: INJ, ONCE, Dosing Weight 128.9, kg, Priority: STAT, Start date: 12/24/15 0:42:00 CDT, Stop date: 12/24/15 0:42:00 CDTNotes: (Same as: Zofran) MEDICATION WASTE Product Size: 4 mg Product Wasted: ___ mg Inactive 12/24/2015 [facility] Morphine 8 mg, Route: IVP, ONCE, Dosing Weight 130.636, kg, Priority: STAT, Start date: 09/15/15 5:09:00 CDT, Stop date: 09/15/15 5:09:00 CDT Inactive 09/15/2015 [facility] Ondansetron 4 mg, Route: IVP, ONCE, Dosing Weight 130.636, kg, Priority: STAT, Start date: 09/15/15 5:09:00 CDT, Stop date: 09/15/15 5:09:00 CDT Inactive 09/15/2015 [facility] Saline Flush 0.9% 10 mL, Route: IVP, Drug Form: INJ, Dosing Weight 130.636, kg, PRN, PRN Line Flush, Start date: 09/15/15 5:09:00 CDT, Duration: 30 day, Stop date: 10/15/15 5:08:00 CDTNotes: (Same as: BD Posiflush) Inactive 09/15/2015 [facility] Sodium Chloride 0.154 MEQ/ML Injectable Solution 1,000 mL, 2,000 ml/hr, Infuse Over: 30 minutes, Route: IV, ONCE, Priority: STAT, Dosing Weight 130.636 kg, Start date: 09/15/15 5:09:00 CDT, Duration: 1 doses or times, Stop date: 09/15/15 5:09:00 CDT Inactive 09/15/2015 [facility] Allergies, Adverse Reactions, Alerts Substance Category Reaction Severity Reaction type Status Date Reported Comments Source Immunizations Immunization Date Given Site Status Last Updated Comments Source pneumococcal 13-valent vaccine 01/19/2016 Not Given [facility] Results Order Name Results Value Reference Range Date Interpretation Comments Source CHEM PANEL eGFR 96 mL/min/1.73m2 05/07/2016 Result Comment: The eGFR is calculated using the [...] from the National Kid[employer] Disease Education Program (NKDEP) which additionally recommends that when the eGFR is used in patients with extremes of body mass index for purposes of drug dosing, the eGFR should be multiplied by the estimated BMI. [facility] CHEM PANEL AST 14 unit/L 0 - 37 05/07/2016 [facility] CHEM PANEL Alk Phos 91 unit/L 39 - 136 05/07/2016 [facility] CHEM PANEL Bili Total 0.9 mg/dL 0.2 - 1.3 05/07/2016 [facility] CHEM PANEL Albumin Lvl 3.9 g/dL 3.5 - 5.0 05/07/2016 [facility] CHEM PANEL Total Protein 7.9 g/dL 6.4 - 8.4 05/07/2016 [facility] CHEM PANEL ALT 22 unit/L 0 - 65 05/07/2016 [facility] CHEM PANEL Glucose Lvl 98 mg/dL 70 - 99 05/07/2016 [facility] CHEM PANEL CO2 25 meq/L 24 - 32 05/07/2016 [facility] CHEM PANEL BUN 15 mg/dL 7 - 22 05/07/2016 [facility] CHEM PANEL Calcium Lvl 8.7 mg/dL 8.5 - 10.5 05/07/2016 [facility] CHEM PANEL Chloride Lvl 103 meq/L 95 - 109 05/07/2016 [facility] CHEM PANEL Potassium Lvl 4.1 meq/L 3.5 - 5.1 05/07/2016 [facility] CHEM PANEL Creatinine Lvl 0.78 mg/dL 0.50 - 1.40 05/07/2016 [facility] CHEM PANEL Sodium Lvl 137 meq/L 135 - 145 05/07/2016 [facility] CHEM PANEL A/G Ratio 1.0 0.7 - 1.6 05/07/2016 [facility] CHEM PANEL Globulin 4.0 g/dL 2.7 - 4.2 05/07/2016 [facility] CHEM PANEL AGAP 13.1 meq/L 10.0 - 20.0 05/07/2016 [facility] CHEM PANEL B/C Ratio 19 6 - 25 05/07/2016 [facility] HEMATOLOGY Monocytes 4.7 % 2.0 - 12.0 05/07/2016 [facility] HEMATOLOGY Segs 68.3 % 45.0 - 75.0 05/07/2016 [facility] HEMATOLOGY Eosinophils # 0.4 K/CMM 0.0 - 0.5 05/07/2016 [facility] HEMATOLOGY Lymphocytes 23.2 % 20.0 - 40.0 05/07/2016 [facility] HEMATOLOGY Segs-Bands # 7.1 K/CMM 1.5 - 8.1 05/07/2016 [facility] HEMATOLOGY Lymphocytes # 2.4 K/CMM 1.0 - 5.5 05/07/2016 [facility] HEMATOLOGY Monocytes # 0.5 K/CMM 0.0 - 0.8 05/07/2016 [facility] Eosinophils 3.4 % 0.0 - 4.0 05/07/2016 [facility] Basophils 0.4 % 0.0 - 1.0 05/07/2016 [facility] RBC 4.33 M/CMM 4.20 - 5.40 05/07/2016 [facility] Hgb 12.1 g/dL 12.0 - 16.0 05/07/2016 [facility] Hct 36.8 % 36.0 - 48.0 05/07/2016 [facility] Platelet 258 K/CMM 133 - 450 05/07/2016 [facility] MPV 8.9 fL 7.4 - 10.4 05/07/2016 [facility] MCHC 32.8 g/dL 32.0 - 36.0 05/07/2016 [facility] RDW 14.7 % 11.5 - 14.5 05/07/2016 [facility] MCV 85.0 fL 80.0 - 98.0 05/07/2016 [facility] MCH 27.8 pg 27.0 - 31.0 05/07/2016 [facility] WBC 10.4 K/CMM 3.7 - 10.4 05/07/2016 [facility] URINE CHEM U Preg Negative (05/07/16 8:08 AM) Negative 05/07/2016 [facility] Renal Stone CT Renal Stone CT Clinical Indication: Status post colonoscopy on 01 17, left lower quadrant and groin pain, abnormal urinalysis; Comparison: CT of the abdomen and pelvis 01/10/2016 TECHNIQUE: Noncontrasted helical imaging was performed from the kidneys through the symphysis as a renal stone protocol. Axial and coronal reformations are available. CT Radiation Dose DLP: 1132 mGy-cm FINDINGS: This examination is limited for the evaluation of solid organs and vascular structures due to lack of intravenous contrast, which is standard for urinary calculus assessment CT. KIDNEYS: No urinary calculi, hydronephrosis or perinephric stranding. The renal contours are normal. LOWER CHEST: The lung bases are clear. SOLID ORGANS: The visualized liver, spleen, pancreas, and adrenal glands are normal. Hepatic steatosis BOWEL: No acute bowel pathology. PERITONEUM: No free intraperitoneal fluid or air. RETROPERITONEUM: No adenopathy. Aorta is normal. PELVIS: No pelvic mass. The urinary bladder is normal. Lobulated uterus. MUSCULOSKELETAL: No acute osseous abnormalities. IMPRESSION: 1. No acute abnormalities of the abdomen or pelvis. No renal or ureteral calculi and no hydronephrosis. 2.Hepatic steatosis and hepatomegaly. Mild splenomegaly. 3. Lobulated uterus likely due to fibroids. SL: [id number] 01/18/2016 - - Read by: Gumaro Mix MD Dictated Date/time: 01/19/16 07:16 Electronically Signed by: Gumaro Mix MD 01/19/16 07:22 FINAL REPORT [facility] CHEM PANEL Lipase Lvl 98 unit/L 73 - 393 01/18/2016 [facility] CHEM PANEL Albumin Lvl 3.3 g/dL 3.5 - 5.0 01/18/2016 [facility] CHEM PANEL AST 22 unit/L 0 - 37 01/18/2016 [facility] CHEM PANEL ALT 28 unit/L 0 - 65 01/18/2016 [facility] CHEM PANEL Alk Phos 76 unit/L 39 - 136 01/18/2016 [facility] CHEM PANEL Bili Indirect 0.6 mg/dL 0.0 - 1.0 01/18/2016 [facility] CHEM PANEL Bili Total 0.8 mg/dL 0.2 - 1.3 01/18/2016 [facility] CHEM PANEL Bili Direct 0.2 mg/dL 0.0 - 0.3 01/18/2016 [facility] CHEM PANEL Globulin 3.4 g/dL 2.7 - 4.2 01/18/2016 [facility] CHEM PANEL A/G Ratio 1.0 0.7 - 1.6 01/18/2016 [facility] CHEM PANEL Total Protein 6.7 g/dL 6.4 - 8.4 01/18/2016 [facility] URINE AND STOOL UA [place] Yeast Few /HPF None Seen /HPF 01/17/2016 [facility] URINE AND STOOL UA Color Ltyellow 01/17/2016 [facility] URINE AND STOOL UA Urobilinogen <=1.0 mg/dL 0.1 - 1.0 01/17/2016 [facility] URINE AND STOOL UA Protein Negative mg/dL Negative mg/dL 01/17/2016 [facility] URINE AND STOOL UA Glucose Negative mg/dL Negative mg/dL 01/17/2016 [facility] URINE AND STOOL UA Ketones Trace mg/dL Negative mg/dL 01/17/2016 [facility] URINE AND STOOL UA Bili Negative *NA* (01/16/16 9:03 PM) Negative 01/17/2016 [facility] URINE AND STOOL UA pH 6.0 5.0 - 8.0 01/17/2016 [facility] URINE AND STOOL UA Sq Epi Moderate /LPF Few /LPF 01/17/2016 [facility] URINE AND STOOL UA Leuk Est Large *ABN* (01/16/16 9:03 PM) Negative 01/17/2016 [facility] URINE AND STOOL UA Blood Moderate *ABN* (01/16/16 9:03 PM) Negative 01/17/2016 [facility] URINE AND STOOL UA Nitrite Negative (01/16/16 9:03 PM) Negative 01/17/2016 [facility] URINE AND STOOL UA Bacteria Occasional /HPF None Seen /HPF 01/17/2016 [facility] URINE AND STOOL UA Hyal Cast 2 /LPF 0 - 2 01/17/2016 [facility] URINE AND STOOL UA RBC 7 /HPF 0 - 2 01/17/2016 [facility] URINE AND STOOL UA Mucus Few /LPF None Seen /LPF 01/17/2016 [facility] URINE AND STOOL UA WBC 37 /HPF 0 - 5 01/17/2016 [facility] URINE AND STOOL UA Spec Grav 1.012 <=1.030 01/17/2016 [facility] URINE AND STOOL UA Turbidity Slight *ABN* (01/16/16 9:03 PM) Clear 01/17/2016 [facility] URINE CHEM U Preg Negative (01/16/16 9:03 PM) Negative 01/17/2016 [facility] CHEM PANEL Calcium Lvl 8.6 mg/dL 8.5 - 10.5 01/17/2016 [facility] CHEM PANEL Chloride Lvl 102 meq/L 95 - 109 01/17/2016 [facility] CHEM PANEL Potassium Lvl 4.7 meq/L 3.5 - 5.1 01/17/2016 [facility] CHEM PANEL CO2 28 meq/L 24 - 32 01/17/2016 [facility] CHEM PANEL eGFR 73 mL/min/1.73m2 01/17/2016 Result Comment: The eGFR is calculated using the [...] from the National Kidney Disease Education Program (NKDEP) which additionally recommends that when the eGFR is used in patients with extremes of body mass index for purposes of drug dosing, the eGFR should be multiplied by the estimated BMI. [facility] CHEM PANEL Glucose Lvl 91 mg/dL 70 - 99 01/17/2016 [facility] CHEM PANEL BUN 10 mg/dL 7 - 22 01/17/2016 [facility] CHEM PANEL Sodium Lvl 138 meq/L 135 - 145 01/17/2016 [facility] CHEM PANEL Creatinine Lvl 0.98 mg/dL 0.50 - 1.40 01/17/2016 [facility] CHEM PANEL AGAP 12.7 meq/L 10.0 - 20.0 01/17/2016 [facility] RDW 15.4 % 11.5 - 14.5 01/17/2016 [facility] MCV 84.4 fL 80.0 - 98.0 01/17/2016 [facility] Hct 36.0 % 36.0 - 48.0 01/17/2016 [facility] MCHC 33.4 g/dL 32.0 - 36.0 01/17/2016 [facility] MCH 28.2 pg 27.0 - 31.0 01/17/2016 [facility] Hgb 12.0 g/dL 12.0 - 16.0 01/17/2016 [facility] RBC 4.26 M/CMM 4.20 - 5.40 01/17/2016 [facility] WBC 9.1 K/CMM 3.7 - 10.4 01/17/2016 [facility] MPV 7.8 fL 7.4 - 10.4 01/17/2016 [facility] Platelet 226 K/CMM 133 - 450 01/17/2016 [facility] Eosinophils # 0.1 K/CMM 0.0 - 0.5 01/17/2016 [facility] Monocytes # 0.4 K/CMM 0.0 - 0.8 01/17/2016 [facility] Lymphocytes # 2.2 K/CMM 1.0 - 5.5 01/17/2016 [facility] Segs-Bands # 6.3 K/CMM 1.5 - 8.1 01/17/2016 [facility] Basophils 0.5 % 0.0 - 1.0 01/17/2016 [facility] HEMATOLOGY Eosinophils 1.5 % 0.0 - 4.0 01/17/2016 [facility] HEMATOLOGY Monocytes 4.7 % 2.0 - 12.0 01/17/2016 [facility] HEMATOLOGY Lymphocytes 23.8 % 20.0 - 40.0 01/17/2016 [facility] HEMATOLOGY Segs 69.5 % 45.0 - 75.0 01/17/2016 [facility] Abdomen 2 views DX Abdomen 2 views DX Study: 2 views of the abdomen. One view of chest History: Abdominal pain Comments: Lung apices not included in the [id number]. The trachea is midline. The cardiomediastinal silhouette is normal in size. No pneumonia. No pleural effusions or pneumothorax. No radiographic evidence of free intraperitoneal air. No dilated small or large bowel loops. Bones are within normal limits Impression: No bowel obstruction 01/16/2016 - - Read by: Netta Deluna MD Dictated Date/time: 01/16/16 21:15 Electronically Signed by: Netta Deluna MD 01/16/16 21:17 FINAL REPORT [facility] CHEM PANEL eGFR 100 mL/min/1.73m2 01/10/2016 Result Comment: The eGFR is calculated using the [...] from the National Kidney Disease Education Program (NKDEP) which additionally recommends that when the eGFR is used in patients with extremes of body mass index for purposes of drug dosing, the eGFR should be multiplied by the estimated BMI. [facility] CHEM PANEL ALT 30 unit/L 0 - 65 01/10/2016 [facility] CHEM PANEL AST 21 unit/L 0 - 37 01/10/2016 [facility] CHEM PANEL Glucose Lvl 106 mg/dL 70 - 99 01/10/2016 [facility] CHEM PANEL Creatinine Lvl 0.75 mg/dL 0.50 - 1.40 01/10/2016 [facility] CHEM PANEL Sodium Lvl 140 meq/L 135 - 145 01/10/2016 [facility] CHEM PANEL Chloride Lvl 105 meq/L 95 - 109 01/10/2016 [facility] CHEM PANEL CO2 26 meq/L 24 - 32 01/10/2016 [facility] CHEM PANEL Calcium Lvl 8.6 mg/dL 8.5 - 10.5 01/10/2016 [facility] CHEM PANEL Potassium Lvl 3.7 meq/L 3.5 - 5.1 01/10/2016 [facility] CHEM PANEL BUN 15 mg/dL 7 - 22 01/10/2016 [facility] CHEM PANEL Albumin Lvl 3.6 g/dL 3.5 - 5.0 01/10/2016 [facility] CHEM PANEL Total Protein 7.6 g/dL 6.4 - 8.4 01/10/2016 [facility] CHEM PANEL Alk Phos 93 unit/L 39 - 136 01/10/2016 [facility] CHEM PANEL Bili Total 0.9 mg/dL 0.2 - 1.3 01/10/2016 [facility] CHEM PANEL B/C Ratio 20 6 - 25 01/10/2016 [facility] CHEM PANEL AGAP 12.7 meq/L 10.0 - 20.0 01/10/2016 [facility] CHEM PANEL A/G Ratio 0.9 0.7 - 1.6 01/10/2016 [facility] CHEM PANEL Globulin 4.0 g/dL 2.7 - 4.2 01/10/2016 [facility] ENDOCRINOLOGY S Preg Negative *NA* (01/10/16 1:30 AM) Negative 01/10/2016 [facility] HEMATOLOGY Lymphocytes 29.9 % 20.0 - 40.0 01/10/2016 [facility] HEMATOLOGY Eosinophils 2.2 % 0.0 - 4.0 01/10/2016 [facility] HEMATOLOGY Monocytes 4.1 % 2.0 - 12.0 01/10/2016 [facility] HEMATOLOGY Segs 63.4 % 45.0 - 75.0 01/10/2016 [facility] HEMATOLOGY Eosinophils # 0.2 K/CMM 0.0 - 0.5 01/10/2016 [facility] HEMATOLOGY Basophils 0.4 % 0.0 - 1.0 01/10/2016 [facility] HEMATOLOGY Segs-Bands # 6.6 K/CMM 1.5 - 8.1 01/10/2016 [facility] HEMATOLOGY Lymphocytes # 3.1 K/CMM 1.0 - 5.5 01/10/2016 [facility] HEMATOLOGY Monocytes # 0.4 K/CMM 0.0 - 0.8 01/10/2016 [facility] HEMATOLOGY MCH 27.5 pg 27.0 - 31.0 01/10/2016 [facility] HEMATOLOGY MCHC 32.4 g/dL 32.0 - 36.0 01/10/2016 [facility] HEMATOLOGY Hct 36.4 % 36.0 - 48.0 01/10/2016 [facility] HEMATOLOGY MCV 84.7 fL 80.0 - 98.0 01/10/2016 [facility] HEMATOLOGY Hgb 11.8 g/dL 12.0 - 16.0 01/10/2016 [facility] HEMATOLOGY Platelet 245 K/CMM 133 - 450 01/10/2016 [facility] HEMATOLOGY MPV 8.0 fL 7.4 - 10.4 01/10/2016 [facility] HEMATOLOGY RDW 15.0 % 11.5 - 14.5 01/10/2016 [facility] HEMATOLOGY RBC 4.29 M/CMM 4.20 - 5.40 01/10/2016 [facility] HEMATOLOGY WBC 10.3 K/CMM 3.7 - 10.4 01/10/2016 [facility] URINE AND STOOL UA RBC null 0 - 2 01/10/2016 [facility] URINE AND STOOL UA WBC 18 /HPF 0 - 5 01/10/2016 [facility] URINE AND STOOL UA Mucus Few /LPF None Seen /LPF 01/10/2016 [facility] URINE AND STOOL UA Bili Negative *NA* (01/10/16 1:30 AM) Negative 01/10/2016 [facility] URINE AND STOOL UA Nitrite Negative (01/10/16 1:30 AM) Negative 01/10/2016 [facility] URINE AND STOOL UA Blood Large *ABN* (01/10/16 1:30 AM) Negative 01/10/2016 [facility] URINE AND STOOL UA Sq Epi Many /LPF Few /LPF 01/10/2016 [facility] URINE AND STOOL UA Leuk Est Trace *ABN* (01/10/16 1:30 AM) Negative 01/10/2016 [facility] URINE AND STOOL UA Urobilinogen <=1.0 mg/dL 0.1 - 1.0 01/10/2016 [facility] URINE AND STOOL UA Ketones Negative 01/10/2016 [facility] URINE AND STOOL UA Glucose Negative mg/dL Negative mg/dL 01/10/2016 [facility] URINE AND STOOL UA Protein 100 mg/dL Negative mg/dL 01/10/2016 [facility] URINE AND STOOL UA Color Yellow *NA* (01/10/16 1:30 AM) Yellow 01/10/2016 [facility] URINE AND STOOL UA Spec Grav 1.027 <=1.030 01/10/2016 [facility] URINE AND STOOL UA Turbidity Marked *ABN* (01/10/16 1:30 AM) Clear 01/10/2016 [facility] URINE AND STOOL UA pH 5.0 5.0 - 8.0 01/10/2016 [facility] URINE CHEM U Preg Negative (01/10/16 1:30 AM) Negative 01/10/2016 [facility] Abdomen/Pelvis CTA Abdomen/Pelvis CTA CLINICAL HISTORY: , Abdominal pain, acute EXAM: CT abdomen and pelvis with contrast COMPARISON: 12/24/2015 TECHNIQUE: Following the administration of intravenous contrast, Volumetric CT acquisition was performed through the abdomen and pelvis. Images in the axial, coronal, and sagittal planes were presented for interpretation. Radiation dose/contrast: 98cc Omni 300IV DLP: [id number] FINDINGS: There is no evidence of any acute pulmonary parenchymal or pleural process within the lung bases visualized. The liver is enlarged-measuring up to 19 cm in greatest AP dimension- with diffuse fatty infiltration. The spleen is normal in size and morphology measuring no greater than 9.5 cm in greatest AP dimension. The gallbladder is normal in appearance. There is no intra or extrahepatic biliary ductal dilation. The pancreas and adrenal glands are normal in appearance. The kidneys are normal in size and appearance bilaterally. There are no renal calculi, distal obstructing stones, or evidence of hydronephrosis/hydroureter. The stomach, small and large bowel remain within normal limits. Although not distinctly identified-the region of the appendix is within normal limits without any evidence of inflammatory process.. Within the pelvis, the bladder and rectum are normal. The uterus and ovaries are stable in appearance-unchanged uterine fibroids. There is no evidence of lymphadenopathy. The soft tissue structures of the abdominal wall remain normal in appearance. There is no evidence of any aggressive bone process. The abdominal aorta and and iliac vasculature remain unchanged and within normal limits for age.. There is some mild atherosclerotic plaquing without any significant calcifications, evidence of dissection or aneurysm/aneurysmal dilatation. IMPRESSION: 1. No acute intra-abdominal/pelvic process. 2. Hepatomegaly with fatty liver changes. 01/10/2016 - - Read by: Sue Contreras MD Dictated Date/time: 01/10/16 02:56 Electronically Signed by: Sue Contreras MD 01/10/16 03:03 FINAL REPORT [facility] Pelvis Transvag w Pelvis Doppler US Pelvis Transvag w Pelvis Doppler US Clinical History: Abdominal pain, acute. : 1975. Technique: Sanchez scale transabdominal and transvaginal ultrasound of the pelvis with duplex doppler and spectral analysis. Uterus: The uterus is anteverted and measures 12.4 x 7.2 x 7.8 cm. Myometrium is normal. There are 2 leiomyoma measuring; 1 measuring up to 5.5 cm, the other measuring up to 2.8 cm within the mid uterus. The endometrial thickness is 8 mm. Right ovary: The right ovary measures 5.5 x 2.7 x 2.7 cm. There is no mass. There is normal doppler arterial and venous doppler flow. Left ovary: The left ovary measures 4.5 x 3.4 x 4.6 cm. There is no mass. There is normal arterial and venous doppler flow. Adnexa: No mass. A few subcentimeter nabothian cysts are noted incidentally. There is no free fluid in the cul-de-sac. Impression: 1. Uterine fibroids. No other focal abnormality. 01/10/2016 - - Read by: Sue Contreras MD Dictated Date/time: 01/10/16 02:49 Electronically Signed by: Sue Contreras MD 01/10/16 02:51 FINAL REPORT [facility] Pelvis Transvaginal US Pelvis Transvaginal US PELVIC ULTRASOUND 01/02/2016 12:40 PM CDT INDICATION: R10.2 Pelvic and perineal pain COMPARISON: CT abdomen pelvis 12/24/2015 TECHNIQUE: Real time transvaginal sonography was performed by an ct scan special procedures technologist. [employer] static images were submitted for review. FINDINGS: Uterus: Measures 10.5 x 5.0 x 5.5cm. Endometrial stripe is 13 mm in thickness, within normal limits. Multiple uterine fibroids, largest 4.7 transmural fibroid abutting the endometrial stripe. Other smaller fibroids after 2.9 cm in the anterior uterine fundus and a 1.7 cm the mid body. Right Adnexa: Ovary measures 3.3 x 2.4 x 2.2cm. There is no abnormal Doppler signal or suspicious adnexal abnormality. Left Adnexa: Ovary measures 3.8 x 2.8 x 2.4 cm. There is no abnormal Doppler signal or suspicious adnexal abnormality. There is no free fluid in the pelvis. IMPRESSION: Multiple uterine fibroids with a 4.7 cm submucosal fibroid abutting the endometrial stripe. 01/02/2016 - - Read by: Radha Medrano MD Dictated Date/time: 01/02/16 14:50 Electronically Signed by: Radha Medrano MD 01/02/16 14:[address] [facility] B/C Ratio 17 6 - 25 12/24/2015 [facility] CHEM PANEL AGAP 11.9 meq/L 10.0 - 20.0 12/24/2015 [facility] CHEM PANEL Globulin 4.2 g/dL 2.7 - 4.2 12/24/2015 [facility] CHEM PANEL A/G Ratio 0.9 0.7 - 1.6 12/24/2015 [facility] CHEM PANEL Calcium Lvl 8.9 mg/dL 8.5 - 10.5 12/24/2015 [facility] CHEM PANEL Sodium Lvl 137 meq/L 135 - 145 12/24/2015 [facility] CHEM PANEL Potassium Lvl 3.9 meq/L 3.5 - 5.1 12/24/2015 [facility] CHEM PANEL Chloride Lvl 104 meq/L 95 - 109 12/24/2015 [facility] CHEM PANEL eGFR 86 mL/min/1.73m2 12/24/2015 Result Comment: The eGFR is calculated using the [...] from the National Kidney Disease Education Program (NKDEP) which additionally recommends that when the eGFR is used in patients with extremes of body mass index for purposes of drug dosing, the eGFR should be multiplied by the estimated BMI. [facility] CHEM PANEL Albumin Lvl 3.6 g/dL 3.5 - 5.0 12/24/2015 [facility] CHEM PANEL AST 22 unit/L 0 - 37 12/24/2015 [facility] CHEM PANEL ALT 39 unit/L 0 - 65 12/24/2015 [facility] CHEM PANEL Glucose Lvl 130 mg/dL 70 - 99 12/24/2015 [facility] CHEM PANEL BUN 15 mg/dL 7 - 22 12/24/2015 [facility] CHEM PANEL CO2 25 meq/L 24 - 32 12/24/2015 [facility] CHEM PANEL Creatinine Lvl 0.86 mg/dL 0.50 - 1.40 12/24/2015 [facility] CHEM PANEL Total Protein 7.8 g/dL 6.4 - 8.4 12/24/2015 [facility] CHEM PANEL Bili Total 0.7 mg/dL 0.2 - 1.3 12/24/2015 [facility] CHEM PANEL Alk Phos 89 unit/L 39 - 136 12/24/2015 [facility] CHEM PANEL Lipase Lvl 154 unit/L 73 - 393 12/24/2015 [facility] HEMATOLOGY MPV 8.2 fL 7.4 - 10.4 12/24/2015 [facility] HEMATOLOGY Platelet 247 K/CMM 133 - 450 12/24/2015 [facility] HEMATOLOGY RDW 15.1 % 11.5 - 14.5 12/24/2015 [facility] HEMATOLOGY MCHC 32.7 g/dL 32.0 - 36.0 12/24/2015 [facility] HEMATOLOGY Hgb 12.0 g/dL 12.0 - 16.0 12/24/2015 [facility] HEMATOLOGY RBC 4.40 M/CMM 4.20 - 5.40 12/24/2015 [facility] HEMATOLOGY MCH 27.2 pg 27.0 - 31.0 12/24/2015 [facility] HEMATOLOGY MCV 83.4 fL 80.0 - 98.0 12/24/2015 [facility] HEMATOLOGY Hct 36.7 % 36.0 - 48.0 12/24/2015 [facility] HEMATOLOGY WBC 11.3 K/CMM 3.7 - 10.4 12/24/2015 [facility] HEMATOLOGY Basophils # 0.1 K/CMM 0.0 - 0.2 12/24/2015 [facility] HEMATOLOGY Monocytes # 0.5 K/CMM 0.0 - 0.8 12/24/2015 [facility] HEMATOLOGY Eosinophils # 0.2 K/CMM 0.0 - 0.5 12/24/2015 [facility] HEMATOLOGY Lymphocytes # 3.1 K/CMM 1.0 - 5.5 12/24/2015 [facility] HEMATOLOGY Eosinophils 1.8 % 0.0 - 4.0 12/24/2015 [facility] HEMATOLOGY Basophils 0.5 % 0.0 - 1.0 12/24/2015 [facility] HEMATOLOGY Segs-Bands # 7.4 K/CMM 1.5 - 8.1 12/24/2015 [facility] HEMATOLOGY Monocytes 4.7 % 2.0 - 12.0 12/24/2015 [facility] HEMATOLOGY Segs 65.5 % 45.0 - 75.0 12/24/2015 [facility] HEMATOLOGY Lymphocytes 27.5 % 20.0 - 40.0 12/24/2015 [facility] URINE AND STOOL UA Ketones Negative 12/24/2015 [facility] URINE AND STOOL UA Urobilinogen <=1.0 mg/dL 0.1 - 1.0 12/24/2015 [facility] URINE AND STOOL UA Mucus Few /LPF None Seen /LPF 12/24/2015 [facility] URINE AND STOOL UA RBC 1 /HPF 0 - 2 12/24/2015 [facility] URINE AND STOOL UA Bacteria Few /HPF None Seen /HPF 12/24/2015 [facility] URINE AND STOOL UA Glucose Negative mg/dL Negative mg/dL 12/24/2015 [facility] URINE AND STOOL UA Nitrite Positive *ABN* (12/24/15 12:50 AM) Negative 12/24/2015 [facility] URINE AND STOOL UA Leuk Est Trace *ABN* (12/24/15 12:50 AM) Negative 12/24/2015 [facility] URINE AND STOOL UA Sq Epi Many /LPF Few /LPF 12/24/2015 [facility] URINE AND STOOL UA WBC 7 /HPF 0 - 5 12/24/2015 [facility] URINE AND STOOL UA Bili Negative *NA* (12/24/15 12:50 AM) Negative 12/24/2015 [facility] URINE AND STOOL UA Blood Negative (12/24/15 12:50 AM) Negative 12/24/2015 [facility] URINE AND STOOL UA Turbidity Marked *ABN* (12/24/15 12:50 AM) Clear 12/24/2015 [facility] URINE AND STOOL UA Color Yellow *NA* (12/24/15 12:50 AM) Yellow 12/24/2015 [facility] URINE AND STOOL UA Protein Negative mg/dL Negative mg/dL 12/24/2015 [facility] URINE AND STOOL UA pH 5.0 5.0 - 8.0 12/24/2015 [facility] URINE AND STOOL UA Spec Grav 1.019 <=1.030 12/24/2015 [facility] URINE CHEM U Preg Negative (12/24/15 12:50 AM) Negative 12/24/2015 [facility] ED Abdomen/Pelvis IV contrast only CT ED Abdomen/Pelvis IV contrast only CT CLINICAL HISTORY: , Abdominal pain, acute EXAM: CT abdomen and pelvis with contrast 12/24/2015 2:48 AM CDT COMPARISON: CT Stone study September 15, 2015 TECHNIQUE: Following the administration of intravenous contrast, Volumetric CT acquisition was performed through the abdomen and pelvis. Images in the axial, coronal, and sagittal planes were presented for interpretation. . Radiation dose/contrast: 96cc Omni 300IV DLP:[id number] FINDINGS: The lung bases are clear. The visualized cardiomediastinal structures within normal limits. The liver is enlarged with diffuse fatty infiltration. The spleen is normal in size and morphology. The gallbladder is normal in appearance. There is no intra or extrahepatic biliary ductal dilation. The pancreas and adrenal glands are normal in appearance. The kidneys are normal in size bilaterally and the ureters are normal in course and caliber. There are no renal calculi, distal obstructing stones, or evidence of hydronephrosis/hydroureter. The stomach and small intestines are within normal limits without wall thickening or bowel dilation. The appendix is well-visualized and normal, best seen on axial image 68 medial to the cecum. The colon is stool filled and otherwise unremarkable. Within the pelvis, the bladder and rectum are normal. The uterus and ovaries are stable in appearance. There are no pathologically enlarged inguinal, retroperitoneal, portacaval, or mesenteric lymph nodes. The soft tissue structures of the abdominal wall are normal in appearance. The visualized osseous structures within normal limits for the patient's age. The abdominal aorta and its primary branches are normal in course and caliber. IMPRESSION: 1. No acute intra-abdominal process or clear cause for the patient's left sided abdominal pain. 2. Enlarged fatty liver. 12/24/2015 - - Read by: Barbra Castillo MD Dictated Date/time: 12/24/15 03:40 Electronically Signed by: Barbra Castillo MD 12/24/15 03:43 FINAL REPORT [facility] CHEM PANEL eGFR 91 mL/min/1.73m2 09/15/2015 Result Comment: The eGFR is calculated using the [...] from the National Kidney Disease Education Program (NKDEP) which additionally recommends that when the eGFR is used in patients with extremes of body mass index for purposes of drug dosing, the eGFR should be multiplied by the estimated BMI. [facility] CHEM PANEL Potassium Lvl 4.3 meq/L 3.5 - 5.1 09/15/2015 Result Comment: sl hemolyzed [facility] CHEM PANEL Calcium Lvl 8.8 mg/dL 8.5 - 10.5 09/15/2015 [facility] CHEM PANEL BUN 12 mg/dL 7 - 22 09/15/2015 [facility] CHEM PANEL Glucose Lvl 121 mg/dL 70 - 99 09/15/2015 [facility] CHEM PANEL Sodium Lvl 137 meq/L 135 - 145 09/15/2015 [facility] CHEM PANEL Creatinine Lvl 0.82 mg/dL 0.50 - 1.40 09/15/2015 [facility] CHEM PANEL Chloride Lvl 106 meq/L 95 - 109 09/15/2015 [facility] CHEM PANEL CO2 22 meq/L 24 - 32 09/15/2015 [facility] ENDOCRINOLOGY S Preg Negative *NA* (09/15/15 4:43 AM) Negative 09/15/2015 [facility] HEMATOLOGY WBC 9.7 K/CMM 3.7 - 10.4 09/15/2015 [facility] HEMATOLOGY Hgb 12.3 g/dL 12.0 - 16.0 09/15/2015 [facility] HEMATOLOGY MCH 28.8 pg 27.0 - 31.0 09/15/2015 [facility] MCHC 33.6 g/dL 32.0 - 36.0 09/15/2015 [facility] HEMATOLOGY MCV 85.7 fL 80.0 - 98.0 09/15/2015 [facility] HEMATOLOGY Hct 36.7 % 36.0 - 48.0 09/15/2015 [facility] HEMATOLOGY RBC 4.28 M/CMM 4.20 - 5.40 09/15/2015 [facility] MPV 8.6 fL 7.4 - 10.4 09/15/2015 [facility] HEMATOLOGY RDW 14.3 % 11.5 - 14.5 09/15/2015 [facility] Platelet 253 K/CMM 133 - 450 09/15/2015 [facility] HEMATOLOGY Eosinophils 2.2 % 0.0 - 4.0 09/15/2015 [facility] HEMATOLOGY Monocytes 4.4 % 2.0 - 12.0 09/15/2015 [facility] HEMATOLOGY Lymphocytes # 2.5 K/CMM 1.0 - 5.5 09/15/2015 [facility] HEMATOLOGY Monocytes # 0.4 K/CMM 0.0 - 0.8 09/15/2015 [facility] HEMATOLOGY Basophils 0.6 % 0.0 - 1.0 09/15/2015 [facility] HEMATOLOGY Segs-Bands # 6.5 K/CMM 1.5 - 8.1 09/15/2015 [facility] HEMATOLOGY Eosinophils # 0.2 K/CMM 0.0 - 0.5 09/15/2015 [facility] HEMATOLOGY Basophils # 0.1 K/CMM 0.0 - 0.2 09/15/2015 [facility] HEMATOLOGY Segs 67.3 % 45.0 - 75.0 09/15/2015 [facility] HEMATOLOGY Lymphocytes 25.5 % 20.0 - 40.0 09/15/2015 [facility] URINE AND STOOL UA Urobilinogen <=1.0 mg/dL 0.1 - 1.0 09/15/2015 [facility] URINE AND STOOL UA Ketones Negative 09/15/2015 [facility] URINE AND STOOL UA Leuk Est Negative (09/15/15 4:30 AM) Negative 09/15/2015 [facility] URINE AND STOOL UA Nitrite Negative (09/15/15 4:30 AM) Negative 09/15/2015 [facility] URINE AND STOOL UA WBC 3 /HPF 0 - 5 09/15/2015 [facility] URINE AND STOOL UA Sq Epi Many /LPF Few /LPF 09/15/2015 [facility] URINE AND STOOL UA Bacteria Occasional /HPF None Seen /HPF 09/15/2015 [facility] URINE AND STOOL UA RBC 2 /HPF 0 - 2 09/15/2015 [facility] URINE AND STOOL UA Mucus Few /LPF None Seen /LPF 09/15/2015 [facility] URINE AND STOOL UA Hyal Cast 1 /LPF 0 - 2 09/15/2015 [facility] URINE AND STOOL UA Color Light Yellow *NA* (09/15/15 4:30 AM) Yellow 09/15/2015 [facility] URINE AND STOOL UA Turbidity Slight *ABN* (09/15/15 4:30 AM) Clear 09/15/2015 [facility] URINE AND STOOL UA Spec Grav 1.015 <=1.030 09/15/2015 [facility] URINE AND STOOL UA Glucose Negative mg/dL Negative mg/dL 09/15/2015 [facility] URINE AND STOOL UA Protein Negative mg/dL Negative mg/dL 09/15/2015 [facility] URINE AND STOOL UA pH 5.0 5.0 - 8.0 09/15/2015 [facility] URINE AND STOOL UA Bili Negative *NA* (09/15/15 4:30 AM) Negative 09/15/2015 [facility] URINE AND STOOL UA Blood Negative (09/15/15 4:30 AM) Negative 09/15/2015 [facility] Renal Stone CT Renal Stone CT EXAM: CT ABDOMEN/PELVIS WITHOUT CONTRAST (RENAL STONE) DATE: 09/15/2015 5:09 AM CDT . CLINICAL INDICATION: Acute abdominal pain , left lower quadrant pain. TECHNIQUE: Volumetric acquisition of abdomen from the level of the domes of the diaphragm to the symphysis pubis using 5mm collimation without the use of intravenous or oral contrast as per our renal CT protocol. Axial and coronal images were reviewed. DLP - 1210 mGy-cm COMPARISON: Unavailable FINDINGS: Kidneys: No calcified Stone disease, hydronephrosis, or perinephric inflammation Urinary bladder: Unremarkable. Gastrointestinal tract: unremarkable. The appendix is normal. Liver: Enlarged and steatotic Spleen: Unremarkable noncontrast evaluation. Pancreas: Unremarkable noncontrast evaluation Reproductive organs: Asymmetric prominent right ovary with small volume right adnexal fluid. Vasculature: Unremarkable noncontrast evaluation Gallbladder/biliary tree: Unremarkable. Mesentery: Unremarkable. Skeleton: Multilevel lumbar degenerative disc disease Pelvis: Unremarkable Lung bases: Dependent atelectasis. Heart: Unremarkable where visualized. IMPRESSION: 1. No calcified renal stone disease, ureteral stone, or obstructive uropathy. 2. Enlarged, fatty liver 3. Asymmetrically prominent right ovary with small volume right adnexal free fluid. This is a nonspecific finding and may be physiologic. If indicated, pelvic ultrasound is available for further assessment. 09/15/2015 - - Read by: Chao Aldridge MD Dictated Date/time: 09/15/15 06:24 Electronically Signed by: Chao Aldridge MD 09/15/15 06:28 FINAL REPORT [facility] Vital Signs Vital Sign Value Date Comments Source Systolic (mm Hg) 102 05/09/2016 [facility] Diastolic (mm Hg) 59 05/09/2016 [facility] Systolic (mm Hg) 102 05/09/2016 [facility] Diastolic (mm Hg) 58 05/09/2016 [facility] Systolic (mm Hg) 96 05/09/2016 [facility] Diastolic (mm Hg) 51 05/09/2016 [facility] Respitory Rate 17 05/09/2016 [facility] Respitory Rate 18 05/09/2016 [facility] Respitory Rate 18 05/09/2016 [facility] Heart Rate 86 05/07/2016 [facility] Temperature Oral (F) 98.2 F 05/07/2016 [facility] Height 157.48 cm 05/07/2016 [facility] Weight 134.545 05/07/2016 [facility] BMI Calculated 54.25 05/07/2016 [facility] Heart Rate 80 01/19/2016 [facility] Systolic (mm Hg) 126 01/19/2016 [facility] Diastolic (mm Hg) 76 01/19/2016 [facility] Respitory Rate 20 01/19/2016 [facility] Temperature Oral (F) 98.2 F 01/19/2016 [facility] Temperature Oral (F) 98.4 F 01/19/2016 [facility] Systolic (mm Hg) 130 01/19/2016 [facility] Diastolic (mm Hg) 71 01/19/2016 [facility] Heart Rate 90 01/19/2016 [facility] Respitory Rate 18 01/19/2016 [facility] Systolic (mm Hg) 106 01/19/2016 [facility] Diastolic (mm Hg) 65 01/19/2016 [facility] Temperature Oral (F) 98.2 F 01/19/2016 [facility] Heart Rate 73 01/19/2016 [facility] Respitory Rate 18 01/19/2016 [facility] Weight 135.909 01/16/2016 [facility] Height 154.94 cm 01/16/2016 [facility] BMI Calculated 56.61 01/16/2016 [facility] Heart Rate 83 01/10/2016 [facility] Respitory Rate 20 01/10/2016 [facility] Temperature Oral (F) 97.6 F 01/10/2016 [facility] Height 154.94 cm 01/10/2016 [facility] Weight 137.273 01/10/2016 [facility] BMI Calculated 57.18 01/10/2016 [facility] Systolic (mm Hg) 129 01/10/2016 [facility] Diastolic (mm Hg) 84 01/10/2016 [facility] Systolic (mm Hg) 118 12/24/2015 [facility] Diastolic (mm Hg) 66 12/24/2015 [facility] Respitory Rate 18 12/24/2015 [facility] Weight 128.9 12/24/2015 [facility] Temperature Oral (F) 98.4 F 12/24/2015 [facility] Heart Rate 112 12/24/2015 [facility] Respitory Rate 20 12/24/2015 [facility] Systolic (mm Hg) 120 12/24/2015 [facility] Diastolic (mm Hg) 84 12/24/2015 [facility] Temperature Oral (F) 98.7 F 09/15/2015 [facility] Heart Rate 88 09/15/2015 [facility] Respitory Rate 16 09/15/2015 [facility] Systolic (mm Hg) 126 09/15/2015 [facility] Diastolic (mm Hg) 66 09/15/2015 [facility] Weight 130.636 09/15/2015 [facility] BMI Calculated 54.42 09/15/2015 [facility] Systolic (mm Hg) 127 09/15/2015 [facility] Diastolic (mm Hg) 84 09/15/2015 [facility] Heart Rate 94 09/15/2015 [facility] Temperature Oral (F) 97.9 F 09/15/2015 [facility] Respitory Rate 16 09/15/2015 [facility] Height 154.94 cm 09/15/2015 [facility] Encounters Location Location Details Encounter Type Encounter Number Reason For Visit Attending Provider ADM Date DC Date Status Source [facility] [id number] vanessadaniel Fortunato 09/15/2015 09/15/2015 [facility] [id number] Gumaro Santamaria 12/24/2015 12/24/2015 [facility] Outpatient Imaging [facility] Di[facility] Services [id number] Deridre Ethan 01/02/2016 01/03/[address] [facility] Emergency [id number] Ky Bucio 01/10/2016 01/10/2016 [facility] Inpatient [id number] Erick Willis 01/17/2016 01/19/2016 [facility] Outpatient [id number] BERNARD LE 05/03/2016 Active [facility] Outpatient [id number] VIRAL SMITH 05/09/2016 Active [facility] Day Surgery [id number] Bernard Le 05/09/2016 05/09/2016 [facility] Outpatient [id number] VIRAL SMITH 05/17/2016 Active [facility] Procedures Procedure Code Date Perfomer Comments Source Colonoscopy [id number] 01/16/2016 [facility] Esophagogastroduodenoscopy [id number] 01/16/2016 [facility]
--- OUTSIDE RECORDS SUMMARY | 2018-02-17 20:47 | XMS REPORT | Summary of Care ---
Author Author [facility] Organization [facility] Address Unknown Phone Unavailable Encounter ELHAM Saavedra(AMINA) [id number] Date(s): 09/15/15 - 09/15/[address] [address]- Discharge Diagnosis: Abdominal wall pain in left flank Discharge Disposition: Home Attending Physician: Ky Bucio MD Vital Signs Most recent to 1 2 oldest [Reference Range]: Height 154.94 cm (09/15/15 3:50 AM) Temperature Oral 98.7 DegF 97.9 DegF [96.4-99.1 DegF] (09/15/15 6:59 AM) (09/15/15 3:50 AM) Blood Pressure 126/66 mmHg 127/84 mmHg [90-140/60-90 mmHg] (09/15/15 6:19 AM) (09/15/15 3:50 AM) Respiratory Rate 16 BRMIN 16 BRMIN [14-20 BRMIN] (09/15/15 6:19 AM) (09/15/15 3:50 AM) Peripheral Pulse 88 bpm 94 bpm Rate [60-100 bpm] (09/15/15 6:19 AM) (09/15/15 3:50 AM) Weight 130.636 kg (09/15/15 3:50 AM) Body Mass Index 54.42 m2 (09/15/15 3:50 AM) Problem List Condition Effective Dates Status Health Status Informant Endometriosis(Confir Resolved med) Allergies, Adverse Reactions, Alerts Substance Reaction Severity Status NKDA Active Medications morphine Sulfate 8 mg, Route: IVP, ONCE, Dosing Weight 130.636, kg, Priority: STAT, Start date: 0 09/15/15 5:09:00 CDT, Stop date: 09/15/15 5:09:00 CDT Start Date: 09/15/15 Stop Date: 09/15/15 Status: Completed ondansetron 4 mg, Route: IVP, ONCE, Dosing Weight 130.636, kg, Priority: STAT, Start date: 0 09/15/15 5:09:00 CDT, Stop date: 09/15/15 5:09:00 CDT Start Date: 09/15/15 Stop Date: 09/15/15 Status: Completed Saline Flush 0.9% 10 mL, Route: IVP, Drug Form: INJ, Dosing Weight 130.636, kg, PRN, PRN Line Flus h, Start date: 09/15/15 5:09:00 CDT, Duration: 30 day, Stop date: 10/15/15 5:08: 00 CDT Notes: (Same as: BD Posiflush) Start Date: 09/15/15 Stop Date: 09/15/15 Status: Discontinued Sodium Chloride 0.9% (Bolus) IV 1,000 mL, 2,000 ml/hr, Infuse Over: 30 minutes, Route: IV, ONCE, Priority: STAT, Dosing Weight 130.636 kg, Start date: 09/15/15 5:09:00 CDT, Duration: 1 doses or times, Stop date: 09/15/15 5:09:00 CDT Start Date: 09/15/15 Stop Date: 09/15/15 Status: Completed Results ELECTROLYTES Most recent to 1 oldest [Reference Range]: Sodium Lvl [135-145 137 mEq/L mEq/L] (09/15/15 4:43 AM) Potassium Lvl 4.3 mEq/L 1 [3.5-5.1 mEq/L] (09/15/15 4:43 AM) Chloride Lvl [95-109 106 mEq/L mEq/L] (09/15/15 4:43 AM) CO2 [24-32 mEq/L] 22 mEq/L *LOW* (09/15/15 4:43 AM) 1Result Comment: sl hemolyzed CHEM PANEL Most recent to 1 oldest [Reference Range]: Creatinine Lvl 0.82 mg/dL [0.50-1.40 mg/dL] (09/15/15 4:43 AM) eGFR 91 mL/min/1.73m2 1 *NA* (09/15/15 4:43 AM) BUN [7-22 mg/dL] 12 mg/dL (09/15/15 4:43 AM) Glucose Lvl [70-99 121 mg/dL mg/dL] *HI* (09/15/15 4:43 AM) Calcium Lvl 8.8 mg/dL [8.5-10.5 mg/dL] (09/15/15 4:43 AM) 1Result Comment: The eGFR is calculated [...] be mul tiplied by the estimated BMI. ENDOCRINOLOGY Most recent to 1 oldest [Reference Range]: S Preg [Negative] Negative *NA* (09/15/15 4:43 AM) URINE AND STOOL Most recent to 1 oldest [Reference Range]: UA Turbidity [Clear] Slight *ABN* (09/15/15 4:30 AM) UA Color [Yellow] Light Yellow *NA* (09/15/15 4:30 AM) UA pH [5.0-8.0] 5.0 (09/15/15 4:30 AM) UA Spec Grav 1.015 [<=1.030] (09/15/15 4:30 AM) UA Glucose [Negative Negative mg/dL mg/dL] *NA* (09/15/15 4:30 AM) UA Blood [Negative] Negative (09/15/15 4:30 AM) UA Ketones Negative *NA* (09/15/15 4:30 AM) UA Protein [Negative Negative mg/dL mg/dL] (09/15/15 4:30 AM) UA Urobilinogen <=1.0 mg/dL [0.1-1.0 mg/dL] *NA* (09/15/15 4:30 AM) UA Bili [Negative] Negative *NA* (09/15/15 4:30 AM) UA Leuk Est Negative [Negative] (09/15/15 4:30 AM) UA Nitrite Negative [Negative] (09/15/15 4:30 AM) UA WBC [0-5 /HPF] 3 /HPF (09/15/15 4:30 AM) UA RBC [0-2 /HPF] 2 /HPF (09/15/15 4:30 AM) UA Bacteria [None Occasional /HPF Seen /HPF] *NA* (09/15/15 4:30 AM) UA Sq Epi [Few /LPF] Many /LPF *ABN* (09/15/15 4:30 AM) UA Hyal Cast [0-2 1 /LPF /LPF] (09/15/15 4:30 AM) UA Mucus [None Seen Few /LPF /LPF] *NA* (09/15/15 4:30 AM) HEMATOLOGY Most recent to 1 oldest [Reference Range]: WBC [3.7-10.4 K/CMM] 9.7 K/CMM (09/15/15 4:43 AM) RBC [4.20-5.40 4.28 M/CMM M/CMM] (09/15/15 4:43 AM) Hgb [12.0-16.0 g/dL] 12.3 g/dL (09/15/15 4:43 AM) Hct [36.0-48.0 %] 36.7 % (09/15/15 4:43 AM) MCV [80.0-98.0 fL] 85.7 fL (09/15/15 4:43 AM) MCH [27.0-31.0 pg] 28.8 pg (09/15/15 4:43 AM) MCHC [32.0-36.0 33.6 g/dL g/dL] (09/15/15 4:43 AM) RDW [11.5-14.5 %] 14.3 % (09/15/15 4:43 AM) Platelet [133-450 253 K/CMM K/CMM] (09/15/15 4:43 AM) MPV [7.4-10.4 fL] 8.6 fL (09/15/15 4:43 AM) Segs [45.0-75.0 %] 67.3 % (09/15/15 4:43 AM) Lymphocytes 25.5 % [20.0-40.0 %] (09/15/15 4:43 AM) Monocytes [2.0-12.0 4.4 % %] (09/15/15 4:43 AM) Eosinophils [0.0-4.0 2.2 % %] (09/15/15 4:43 AM) Basophils [0.0-1.0 0.6 % %] (09/15/15 4:43 AM) Segs-Bands # 6.5 K/CMM [1.5-8.1 K/CMM] (09/15/15 4:43 AM) Lymphocytes # 2.5 K/CMM [1.0-5.5 K/CMM] (09/15/15 4:43 AM) Monocytes # [0.0-0.8 0.4 K/CMM K/CMM] (09/15/15 4:43 AM) Eosinophils # 0.2 K/CMM [0.0-0.5 K/CMM] (09/15/15 4:43 AM) Basophils # [0.0-0.2 0.1 K/CMM K/CMM] (09/15/15 4:43 AM) Immunizations No data available for this [...]
--- OUTSIDE RECORDS SUMMARY | 2018-02-17 20:47 | XMS REPORT | Summary of Care ---
Author Author [facility] Organization [facility] Address Unknown Phone Unavailable Encounter ELHAM Saavedra(AMINA) [id number] Date(s): 01/16/16 - 01/19/16 [facility] [address] [place] [address]- [phone] Final: Pain, unspecified Discharge Disposition: Home or Self Care Attending Physician: Erick Willis MD Admitting Physician: Erick Willis MD Vital Signs 1 2 3 Most recent to oldest [Reference Range]: 154.94 cm (01/16/16 4:12 PM) Height 98.2 DegF (01/19/16 8:00 AM) 98.4 DegF (01/19/16 4:00 AM) 98.2 DegF (01/19/16 12:00 AM) Temperature Oral [96.4-99.1 DegF] 126/76 mmHg (01/19/16 8:00 AM) 130/71 mmHg (01/19/16 4:00 AM) 106/65 mmHg (01/19/16 12:00 AM) Blood Pressure [90-140/60-90 mmHg] 20 BRMIN (01/19/16 8:00 AM) 18 BRMIN (01/19/16 4:00 AM) 18 BRMIN (01/19/16 12:00 AM) Respiratory Rate [14-20 BRMIN] 80 bpm (01/19/16 8:00 AM) 90 bpm (01/19/16 4:00 AM) 73 bpm (01/19/16 12:00 AM) Peripheral Pulse Rate [60-100 bpm] 135.909 kg (01/16/16 4:12 PM) Weight 56.61 m2 (01/16/16 4:12 PM) Body Mass Index Problem List No data available for this section Allergies, Adverse Reactions, Alerts Substance Reaction Severity Status NKDA Active Medications acetaminophen 650 mg, 2 tab, Route: PO, Drug form: TAB, Q6H, Dosing Weight 137.273, kg, PRN Pa in 1-3/Temp > 100.4 F, Start date: 01/16/16 19:53:00 BOSS DYER, Duration: 30 day, Stop date: 02/15/16 19:52:00 BOSS DYER Notes: Do not exceed 4 gm/day. (Same as: Tylenol) Start Date: 01/16/16 Stop Date: 01/19/16 Status: Discontinued acetaminophen-hydrocodone 325 mg-5 mg oral tablet 1 tab, Route: PO, Drug Form: TAB, Dosing Weight 137.273, kg, QID, PRN Pain Score 4-6, Start date: 01/16/16 19:53:00 BOSS DYER, Duration: 30 day, Stop date: 02/15/16 1 9:52:00 BOSS DYER Notes: (Same as: [place] 325/5) Do not exceed 4gm/day of acetaminophen. Start Date: 01/16/16 Stop Date: 01/19/16 Status: Discontinued Anusol-HC 25 mg rectal suppository 25 mg, 1 supp, Route: KS, BID, Drug form: SUPP, Start date: 01/18/16 17:00:00 CS T, Duration: 7 day, Stop date: 01/25/16 9:00:00 BOSS DYER Notes: (Same as: Anusol-HC, Hemorrhoidal HC) Start Date: 01/18/16 Stop Date: 01/19/16 Status: Discontinued Anusol-HC 25 mg rectal suppository 25 mg=1 supp, KS, BID, X 14 day, # 28 supp, 0 Refill(s) Start Date: 01/19/16 Stop Date: 02/02/16 Status: Ordered bisacodyl 20 mg, 4 tab, Route: PO, Drug form: ECTAB, ONCE, Dosing Weight 135.909, kg, Star t date: 01/16/16 17:00:00 BOSS DYER, Stop date: 01/16/16 17:00:00 BOSS DYER Notes: (Same As: Dulcolax, Correctol) (Do Not Crush) "Do Not Crush" Start Date: 01/16/16 Stop Date: 01/16/16 Status: Completed Cipro 500 mg oral tablet 500 mg=1 tab, PO, Q12H, X 7 day, # 14 tab, 0 Refill(s) Start Date: 01/19/16 Stop Date: 01/26/16 Status: Ordered Cipro I.V. 400 mg/200 mL intravenous solution 400 mg, 200 mL, Route: IVPB, Drug form: INJ, [id number], Dosing Weight 137.273, kg, Start date: 01/16/16 17:00:00 BOSS DYER, Duration: 30 day, Stop date: 02/15/16 10:00: 00 BOSS DYER Notes: Do not refrigerate Start Date: 01/16/16 Stop Date: 01/19/16 Status: Discontinued Citrate of Magnesia 300 ml, Route: PO, Drug Form: LIQ, Dosing Weight 135.909, kg, ONCE, Start date: 01/17/16 20:16:00 BOSS DYER, Stop date: 01/17/16 20:16:00 BOSS DYER Notes: (Same as: Citrate of Magnesia)Concentration: 1.745 gm / 30 mL Start Date: 01/17/16 Stop Date: 01/17/16 Status: Completed Dulcolax Laxative 30 mg, 6 tab, Route: PO, Drug form: ECTAB, ONCE, Dosing Weight 135.909, kg, Star t date: 01/17/16 7:55:00 BOSS DYER, Stop date: 01/17/16 7:55:00 BOSS DYER Notes: (Same As: Dulcolax, Correctol) (Do Not Crush) "Do Not Crush" Start Date: 01/17/16 Stop Date: 01/17/16 Status: Completed magnesium citrate 1.745 g/30 mL oral liquid 300 ml, Route: PO, Drug Form: LIQ, Dosing Weight 135.909, kg, ONCE, Start date: 01/17/16 9:07:00 BOSS DYER, Stop date: 01/17/16 9:07:00 BOSS DYER Notes: (Same as: Citrate of Magnesia)Concentration: 1.745 gm / 30 mL Start Date: 01/17/16 Stop Date: 01/17/16 Status: Completed magnesium citrate 1.745 g/30 mL oral liquid 240 mL, Route: PO, Drug Form: LIQ, Dosing Weight 135.909, kg, ONCE, Start date: 01/17/16 7:55:00 BOSS DYER, Stop date: 01/17/16 7:55:00 BOSS DYER Notes: (Same as: Citrate of Magnesia)Concentration: 1.745 gm / 30 mL Start Date: 01/17/16 Stop Date: 01/17/16 Status: Completed metoclopramide 10 mg oral tablet 10 mg, 1 tab, Route: PO, Drug form: TAB, ONCE, Dosing Weight 135.909, kg, Start date: 01/16/16 16:16:00 BOSS DYER, Stop date: 01/16/16 16:16:00 BOSS DYER Notes: (Same as: Reglan) Take 30 min before meals Start Date: 01/16/16 Stop Date: 01/16/16 Status: Completed metroNIDAZOLE 500 mg, 100 mL, Route: IVPB, Drug form: INJ, [id number], Dosing Weight 137.273, kg, Start date: 01/16/16 17:00:00 BOSS DYER, Duration: 30 day, Stop date: 02/15/16 13:00:0 0 BOSS DYER Notes: (Same as: Flagyl) Avoid alcohol. Start Date: 01/16/16 Stop Date: 01/18/16 Status: Discontinued morphine Sulfate 2 mg, 1 mL, Route: IVP, Drug form: INJ, Q4H, Dosing Weight 135.909, kg, PRN Pain Score 7-10, Start date: 01/16/16 19:53:00 BOSS DYER, Duration: 30 day, Stop date: 09/23 19:52:00 BOSS DYER Notes: (Same as:MORPhine Sulfate) Start Date: 01/16/16 Stop Date: 01/19/16 Status: Discontinued ondansetron 4 mg, 2 mL, Route: IVP, Drug form: INJ, Q4H, Dosing Weight 137.273, kg, PRN Naus ea & Vomiting, Start date: 01/16/16 19:53:00 BOSS DYER, Duration: 30 day, Stop date: 02/15/16 19:52:00 BOSS DYER Notes: (Same as: Horace) MEDICATION WASTE Product Size: 4 mgProduct Was lisa: ___ mg Start Date: 01/16/16 Stop Date: 01/19/16 Status: Discontinued pantoprazole 40 mg, 1 tab, Route: PO, Drug form: ECTAB, Before Breakfast, Dosing Weight 135.9 09, kg, Start date: 01/20/16 7:30:00 BOSS DYER, Duration: 30 day, Stop date: 02/18/16 7:30:00 BOSS DYER Notes: Tablet should not be chewed or crushed.(Same as: Protonix) Start Date: 01/20/16 Stop Date: 01/19/16 Status: Canceled pantoprazole 40 mg oral enteric coated tablet 40 mg=1 tab, PO, Before Breakfast, # 30 tab, 0 Refill(s) Start Date: 01/19/16 Stop Date: 02/18/16 Status: Ordered Phenergan 25 mg, 1 supp, Route: KS, Drug form: SUPP, ONCE, Dosing Weight 135.909, kg, Star t date: 01/17/16 17:00:00 BOSS DYER, Stop date: 01/17/16 17:00:00 BOSS DYER Notes: (Same as: Phenergan) Start Date: 01/17/16 Stop Date: 01/17/16 Status: Completed pneumococcal 13-valent vaccine 0.5 mL, Route: IM, Drug Form: INJ, Daily, Start date: 01/19/16 9:00:00 BOSS DYER, Dura tion: 1 doses or times, Stop date: 01/19/16 9:00:00 BOSS DYER Notes: Lightly roll vial (DO NOT SHAKE) before administration. (Same as: Prevna r 13) Start Date: 01/19/16 Stop Date: 01/19/16 Status: Completed polyethylene glycol 3350 with electrolytes 4 Liter, Route: PO, Drug Form: PDR/REC, Dosing Weight 135.909, kg, ONCE, Start d ate: 01/16/16 18:00:00 BOSS DYER, Duration: 1 doses or times, Stop date: 01/16/16 18:0 0:00 BOSS DYER Notes: (polyethylene glycol electrolyte solution 4 Liter bottle) (Same as: Kristofer angeles Colyte) Start Date: 01/16/16 Stop Date: 01/16/16 Status: Completed Saline Flush 0.9% 10 ml, Route: IVP, Drug Form: INJ, Dosing Weight 135.909, kg, PRN, PRN Line Flus h, Start date: 01/16/16 19:53:00 BOSS DYER, Duration: 30 day, Stop date: 02/15/16 19:5 2:00 BOSS DYER Notes: (Same as: BD Posiflush) Start Date: 01/16/16 Stop Date: 01/19/16 Status: Discontinued sodium chloride 0.9% 1000 ml INJ 1,000 mL 1,000 mL, Rate: 80 ml/hr, Infuse over: 12.5 hr, Route: IV, Dosing Weight 135.909 kg, Total Volume: 1,000, Start date: 01/16/16 19:53:00 BOSS DYER, Stop date: 02/15/16 19:52:00 BOSS DYER Start Date: 01/16/16 Stop Date: 01/19/16 Status: Discontinued sodium chloride 0.9% 1000 ml INJ 1,000 mL 1,000 mL, Rate: 25 ml/hr, Infuse over: 40 hr, Route: IV, Dosing Weight 135.909 k g, Total Volume: 1,000, Start date: 01/18/16 11:00:00 BOSS DYER, Duration: 1 day, Stop date: 01/19/16 10:59:00 BOSS DYER Start Date: 01/18/16 Stop Date: 01/18/16 Status: Discontinued tramadol 50 mg oral tablet 50 mg=1 tab, PO, BID, PRN Pain Score 4-6, X 15 day, # 30 tab, 0 Refill(s) Start Date: 01/19/16 Stop Date: 02/03/16 Status: Ordered Results ELECTROLYTES Most recent to 1 oldest [Reference Range]: Sodium Lvl [135-145 138 mEq/L mEq/L] (01/16/16 8:09 PM) Potassium Lvl 4.7 mEq/L [3.5-5.1 mEq/L] (01/16/16 8:09 PM) Chloride Lvl [95-109 102 mEq/L mEq/L] (01/16/16 8:09 PM) CO2 [24-32 mEq/L] 28 mEq/L (01/16/16 8:09 PM) AGAP [10.0-20.0 12.7 mEq/L mEq/L] (01/16/16 8:09 PM) CHEM PANEL Most recent to 1 oldest [Reference Range]: Creatinine Lvl 0.98 mg/dL [0.50-1.40 mg/dL] (01/16/16 8:09 PM) eGFR 73 mL/min/1.73m2 1 *NA* (01/16/16 8:09 PM) BUN [7-22 mg/dL] 10 mg/dL (01/16/16 8:09 PM) Glucose Lvl [70-99 91 mg/dL mg/dL] (01/16/16 8:09 PM) Total Protein 6.7 g/dL [6.4-8.4 g/dL] (01/18/16 5:05 AM) Albumin Lvl [3.5-5.0 3.3 g/dL g/dL] *LOW* (01/18/16 5:05 AM) Globulin [2.7-4.2 3.4 g/dL g/dL] (01/18/16 5:05 AM) A/G Ratio [0.7-1.6] 1.0 (01/18/16 5:05 AM) Calcium Lvl 8.6 mg/dL [8.5-10.5 mg/dL] (01/16/16 8:09 PM) ALT [0-65 unit/L] 28 unit/L (01/18/16 5:05 AM) AST [0-37 unit/L] 22 unit/L (01/18/16 5:05 AM) Alk Phos [39-136 76 unit/L unit/L] (01/18/16 5:05 AM) Bili Total [0.2-1.3 0.8 mg/dL mg/dL] (01/18/16 5:05 AM) Bili Direct [0.0-0.3 0.2 mg/dL mg/dL] (01/18/16 5:05 AM) Bili Indirect 0.6 mg/dL [0.0-1.0 mg/dL] (01/18/16 5:05 AM) Lipase Lvl [73-393 98 unit/L unit/L] (01/18/16 5:05 AM) 1Result Comment: The eGFR is calculated [...] oldest [Reference Range]: U Preg [Negative] Negative (01/16/16 9:03 PM) URINE AND STOOL Most recent to 1 oldest [Reference Range]: UA Turbidity [Clear] Slight *ABN* (01/16/16 9:03 PM) UA Color Ltyellow *NA* (01/16/16 9:03 PM) UA pH [5.0-8.0] 6.0 (01/16/16 9:03 PM) UA Spec Grav 1.012 [<=1.030] (01/16/16 9:03 PM) UA Glucose [Negative Negative mg/dL mg/dL] *NA* (01/16/16 9:03 PM) UA Blood [Negative] Moderate *ABN* (01/16/16 9:03 PM) UA Ketones [Negative Trace mg/dL mg/dL] *ABN* (01/16/16 9:03 PM) UA Protein [Negative Negative mg/dL mg/dL] (01/16/16 9:03 PM) UA Urobilinogen <=1.0 mg/dL [0.1-1.0 mg/dL] *NA* (01/16/16 9:03 PM) UA Bili [Negative] Negative *NA* (01/16/16 9:03 PM) UA Leuk Est Large [Negative] *ABN* (01/16/16 9:03 PM) UA Nitrite Negative [Negative] (01/16/16 9:03 PM) UA WBC [0-5 /HPF] 37 /HPF *HI* (01/16/16 9:03 PM) UA RBC [0-2 /HPF] 7 /HPF *HI* (01/16/16 9:03 PM) UA Bacteria [None Occasional /HPF Seen /HPF] *NA* (01/16/16 9:03 PM) UA Sq Epi [Few /LPF] Moderate /LPF *ABN* (01/16/16 9:03 PM) UA Hyal Cast [0-2 2 /LPF /LPF] (01/16/16 9:03 PM) UA Mucus [None Seen Few /LPF /LPF] *NA* (01/16/16 9:03 PM) UA [place] Yeast [None Few /HPF Seen /HPF] *ABN* (01/16/16 9:03 PM) HEMATOLOGY Most recent to 1 oldest [Reference Range]: WBC [3.7-10.4 K/CMM] 9.1 K/CMM (01/16/16 8:09 PM) RBC [4.20-5.40 4.26 M/CMM M/CMM] (01/16/16 8:09 PM) Hgb [12.0-16.0 g/dL] 12.0 g/dL (01/16/16 8:09 PM) Hct [36.0-48.0 %] 36.0 % (01/16/16 8:09 PM) MCV [80.0-98.0 fL] 84.4 fL (01/16/16 8:09 PM) MCH [27.0-31.0 pg] 28.2 pg (01/16/16 8:09 PM) MCHC [32.0-36.0 33.4 g/dL g/dL] (01/16/16 8:09 PM) RDW [11.5-14.5 %] 15.4 % *HI* (01/16/16 8:09 PM) Platelet [133-450 226 K/CMM K/CMM] (01/16/16 8:09 PM) MPV [7.4-10.4 fL] 7.8 fL (01/16/16 8:09 PM) Segs [45.0-75.0 %] 69.5 % (01/16/16 8:09 PM) Lymphocytes 23.8 % [20.0-40.0 %] (01/16/16 8:09 PM) Monocytes [2.0-12.0 4.7 % %] (01/16/16 8:09 PM) Eosinophils [0.0-4.0 1.5 % %] (01/16/16 8:09 PM) Basophils [0.0-1.0 0.5 % %] (01/16/16 8:09 PM) Segs-Bands # 6.3 K/CMM [1.5-8.1 K/CMM] (01/16/16 8:09 PM) Lymphocytes # 2.2 K/CMM [1.0-5.5 K/CMM] (01/16/16 8:09 PM) Monocytes # [0.0-0.8 0.4 K/CMM K/CMM] (01/16/16 8:09 PM) Eosinophils # 0.1 K/CMM [0.0-0.5 K/CMM] (01/16/16 8:09 PM) Immunizations Not Given Vaccine Date Status Refusal Reason pneumococcal 13-valent vaccine 01/19/16 Not Given Patient Refuses Procedures No data available for this section Social History Social History Type Response Alcohol Never Smoking Status Never smoker; Exposure to Tobacco Smoke None; Cigarette Smoking Last 365 Days No; Reg Smoking Cessation Counseling No Assessment and Plan Extracted from: Title: Clinical Document Author: Marco Antonio Hernández MD Date: 01/19/16 Surgery Progress Note Attending: Erick Willis MDPhone: Service: Internal Medicine Code status: None Specified=FULL CODE Reason for Admission: ABDOMINAL PAIN, FAILED OP MANAGEMENT Working DRG: Signs & symptoms w/o FDC Isolation: None Documented Consulting Physicians: Johann Lopez MDOffice: Service: Gastroenterology Valdez Rojo V MDOffice: Service: Gastroenterology, Medicine Marco Antonio Hernández MDOffice: Service: General Surgery Erick Willis MDOffice: Service: Medicine SUBJECTIVE: Doing well, continues with pain to the left lower quadrant however is controlled with pain medication described as mild to moderate dull ache and soreness. OBJECTIVE & EXAM: General: AAOx3 HEENT: AT, NC, PERRLA, no scleral icterus CARDIAC: rrr PULM: CTA B, equal excursion B ABD: soft ND, TTP LLQ, no R/G, no organomegaly EXT: no E/C/C, 2+ pulses in all 4 ext NEURO: grossly intact, CN 2-12 intact EGD reviewed, gastritis and duodenitis noted, small esophageal polyp Colonoscopy reviewed, normal except for small hemorrhoids. ASSESSMENT: This is a 40-year-old lady with: 1. Left lower quadrant abdominal pain. 2. Urinary tract infection. 3. Uterine fibroids. 4. Super morbid obesity, BMI 57. PLAN: 1. No other surgical abnormalities discovered on upper and lower endoscopy that could explain her left lower quadrant pain. 2. Only working diagnosis currently are small uterine fibroids on the left side that might contribute to left lower quadrant pain. 3. Therefore, no plans for any surgical intervention, follow-up with her OB for continued evaluation. 4. Okay for discharge planning from a surgical standpoint. 5. Plan discussed with patient. Vitals and Temp: VitalsTmp(F)[id number] 01/18 08:[id number]--- 01/18 04:[id number]--- 01/18 00:[id number]--- 01/17 20:[id number]--- 01/17 18:06----[id number]--- 24 Hr Tmax: 98.4F (36.89c) at 01/18 04:00Vital Signs are the last 5 in the past 48 hours. Labs (Last four charted values) WBC 9.1(JAN 15) Hgb 12.0(JAN 15) Hct 36.0(JAN 15) Plt 226(JAN 15) Na 138(JAN 15) K 4.7(JAN 15) CO2 28(JAN 15) Cl 102(JAN 15) Cr 0.98(JAN 15) BUN 10(JAN 15) Glucose Random 91(JAN 15) Ca 8.6(JAN 15) Scheduled Meds (3): 01/16/16 ciprofloxacin (Cipro I.V. 400 mg/200 mL intravenous solution) 400 mg IVPB [id number] 200 ml/hr 01/18/16 hydrocortisone topical (Anusol-HC 25 mg rectal suppository) 25 mg KS BID 01/20/16 pantoprazole 40 mg PO Before Breakfast Extracted from: Title: Clinical Document Author: Erick Willis MD Date: 01/19/16 [id number] Dictated discharge summary. Extracted from: Title: Clinical Document Author: Erick Willis MD Date: 01/17/16 Chart reveiwed. Patient seen and examined. WIll continue to follow. [id number]
--- OUTSIDE RECORDS SUMMARY | 2018-02-17 20:47 | XMS REPORT | Summary of Care ---
Author Author [facility] Organization [facility] Address Unknown Phone Unavailable Encounter ELHAM Saavedra(AMINA) [id number] Date(s): 01/09/16 - 01/10/16 [address] [place] [address]- Discharge Diagnosis: Abdominal pain, LLQ Discharge Diagnosis: Uterine leiomyoma Discharge Disposition: Home or Self Care Attending Physician: Ky Bucio MD Vital Signs Most recent to 1 oldest [Reference Range]: Height 154.94 cm (01/09/16 11:59 PM) Temperature Oral 97.6 DegF [96.4-99.1 DegF] (01/09/16 11:59 PM) Blood Pressure 129/84 mmHg [90-140/60-90 mmHg] (01/09/16 11:59 PM) Respiratory Rate 20 BRMIN [14-20 BRMIN] (01/09/16 11:59 PM) Peripheral Pulse 83 bpm Rate [60-100 bpm] (01/09/16 11:59 PM) Weight 137.273 kg (01/09/16 11:59 PM) Body Mass Index 57.18 m2 (01/09/16 11:59 PM) Problem List Condition Effective Dates Status Health Status Informant Endometriosis(Confir Resolved med) Allergies, Adverse Reactions, Alerts Substance Reaction Severity Status NKDA Active Medications hydromorphone 1 mg, 1 mL, Route: IVP, Drug form: INJ, ONCE, Dosing Weight 137.273, kg, Priorit y: STAT, Start date: 01/10/16 0:43:00 CDT, Stop date: 01/10/16 0:43:00 CDT Notes: Same as: Dilaudid Start Date: 01/10/16 Stop Date: 01/10/16 Status: Completed Saline Flush 0.9% 10 mL, Route: IVP, Drug Form: INJ, Dosing Weight 137.273, kg, PRN, PRN Line Flus h, Start date: 01/10/16 0:43:00 CDT, Duration: 30 day, Stop date: 02/08/16 23:42 :00 SUPERVISORY EXAMINER Notes: (Same as: BD Posiflush) Start Date: 01/10/16 Stop Date: 01/10/16 Status: Discontinued Sodium Chloride 0.9% (Bolus) IV 1,000 mL, 2,000 ml/hr, Infuse Over: 30 minutes, Route: IV, 1,000, Drug form: INJ , ONCE, Priority: STAT, Dosing Weight 137.273 kg, Start date: 01/10/16 0:43:00 C DT, Duration: 1 doses or times, Stop date: 01/10/16 0:43:00 CDT Start Date: 01/10/16 Stop Date: 01/10/16 Status: Completed Zofran 4 mg, 2 mL, Route: IVP, Drug form: INJ, ONCE, Dosing Weight 137.273, kg, Priorit y: STAT, Start date: 01/10/16 3:26:00 CDT, Stop date: 01/10/16 3:26:00 CDT Notes: (Same as: Zofran) MEDICATION WASTE Product Size: 4 mgProduct Was lisa: ___ mg Start Date: 01/10/16 Stop Date: 01/10/16 Status: Completed Zofran ODT 4 mg oral tablet, disintegrating 4 mg=1 tab, PO, BID, PRN Nausea and Vomiting, Dissolve tab under tongue, X 5 day , # 10 tab, 0 Refill(s) Start Date: 01/10/16 Stop Date: 01/15/16 Status: Ordered Results ELECTROLYTES Most recent to 1 oldest [Reference Range]: Sodium Lvl [135-145 140 mEq/L mEq/L] (01/10/16 1:30 AM) Potassium Lvl 3.7 mEq/L [3.5-5.1 mEq/L] (01/10/16 1:30 AM) Chloride Lvl [95-109 105 mEq/L mEq/L] (01/10/16 1:30 AM) CO2 [24-32 mEq/L] 26 mEq/L (01/10/16 1:30 AM) AGAP [10.0-20.0 12.7 mEq/L mEq/L] (01/10/16 1:30 AM) CHEM PANEL Most recent to 1 oldest [Reference Range]: Creatinine Lvl 0.75 mg/dL [0.50-1.40 mg/dL] (01/10/16 1:30 AM) eGFR 100 mL/min/1.73m2 1 *NA* (01/10/16 1:30 AM) BUN [7-22 mg/dL] 15 mg/dL (01/10/16 1:30 AM) B/C Ratio [6-25] 20 (01/10/16 1:30 AM) Glucose Lvl [70-99 106 mg/dL mg/dL] *HI* (01/10/16 1:30 AM) Total Protein 7.6 g/dL [6.4-8.4 g/dL] (01/10/16 1:30 AM) Albumin Lvl [3.5-5.0 3.6 g/dL g/dL] (01/10/16 1:30 AM) Globulin [2.7-4.2 4.0 g/dL g/dL] (01/10/16 1:30 AM) A/G Ratio [0.7-1.6] 0.9 (01/10/16 1:30 AM) Calcium Lvl 8.6 mg/dL [8.5-10.5 mg/dL] (01/10/16 1:30 AM) ALT [0-65 unit/L] 30 unit/L (01/10/16 1:30 AM) AST [0-37 unit/L] 21 unit/L (01/10/16 1:30 AM) Alk Phos [39-136 93 unit/L unit/L] (01/10/16 1:30 AM) Bili Total [0.2-1.3 0.9 mg/dL mg/dL] (01/10/16 1:30 AM) 1Result Comment: The eGFR is calculated [...] [Reference Range]: S Preg [Negative] Negative *NA* (01/10/16 1:30 AM) URINE CHEM Most recent to 1 oldest [Reference Range]: U Preg [Negative] Negative (01/10/16 1:30 AM) URINE AND STOOL Most recent to 1 oldest [Reference Range]: UA Turbidity [Clear] Marked *ABN* (01/10/16 1:30 AM) UA Color [Yellow] Yellow *NA* (01/10/16 1:30 AM) UA pH [5.0-8.0] 5.0 (01/10/16 1:30 AM) UA Spec Grav 1.027 [<=1.030] (01/10/16 1:30 AM) UA Glucose [Negative Negative mg/dL mg/dL] *NA* (01/10/16 1:30 AM) UA Blood [Negative] Large *ABN* (01/10/16 1:30 AM) UA Ketones Negative *NA* (01/10/16 1:30 AM) UA Protein [Negative 100 mg/dL mg/dL] *ABN* (01/10/16 1:30 AM) UA Urobilinogen <=1.0 mg/dL [0.1-1.0 mg/dL] *NA* (01/10/16 1:30 AM) UA Bili [Negative] Negative *NA* (01/10/16 1:30 AM) UA Leuk Est Trace [Negative] *ABN* (01/10/16 1:30 AM) UA Nitrite Negative [Negative] (01/10/16 1:30 AM) UA WBC [0-5 /HPF] 18 /HPF *HI* (01/10/16 1:30 AM) UA RBC [0-2 /HPF] >182 /HPF *HI* (01/10/16 1:30 AM) UA Sq Epi [Few /LPF] Many /LPF *ABN* (01/10/16 1:30 AM) UA Mucus [None Seen Few /LPF /LPF] *NA* (01/10/16 1:30 AM) HEMATOLOGY Most recent to 1 oldest [Reference Range]: WBC [3.7-10.4 K/CMM] 10.3 K/CMM (01/10/16 1:30 AM) RBC [4.20-5.40 4.29 M/CMM M/CMM] (01/10/16 1:30 AM) Hgb [12.0-16.0 g/dL] 11.8 g/dL *LOW* (01/10/16 1:30 AM) Hct [36.0-48.0 %] 36.4 % (01/10/16 1:30 AM) MCV [80.0-98.0 fL] 84.7 fL (01/10/16 1:30 AM) MCH [27.0-31.0 pg] 27.5 pg (01/10/16 1:30 AM) MCHC [32.0-36.0 32.4 g/dL g/dL] (01/10/16 1:30 AM) RDW [11.5-14.5 %] 15.0 % *HI* (01/10/16 1:30 AM) Platelet [133-450 245 K/CMM K/CMM] (01/10/16 1:30 AM) MPV [7.4-10.4 fL] 8.0 fL (01/10/16 1:30 AM) Segs [45.0-75.0 %] 63.4 % (01/10/16 1:30 AM) Lymphocytes 29.9 % [20.0-40.0 %] (01/10/16 1:30 AM) Monocytes [2.0-12.0 4.1 % %] (01/10/16 1:30 AM) Eosinophils [0.0-4.0 2.2 % %] (01/10/16 1:30 AM) Basophils [0.0-1.0 0.4 % %] (01/10/16 1:30 AM) Segs-Bands # 6.6 K/CMM [1.5-8.1 K/CMM] (01/10/16 1:30 AM) Lymphocytes # 3.1 K/CMM [1.0-5.5 K/CMM] (01/10/16 1:30 AM) Monocytes # [0.0-0.8 0.4 K/CMM K/CMM] (01/10/16 1:30 AM) Eosinophils # 0.2 K/CMM [0.0-0.5 K/CMM] (01/10/16 1:30 AM) Immunizations No data available for this [...]
--- OUTSIDE RECORDS SUMMARY | 2018-02-17 20:47 | XMS REPORT | Summary of Care ---
Author Author [facility] Outpatient Imaging [facility] Address Unknown Phone Unavailable Encounter HQ Mary_carlos alberto(AMINA) [id number] Date(s): 01/02/16 - 01/02/16 [facility] Outpatient Imaging [address] [phone] Discharge Disposition: Home or Self Care Attending Physician: Deirdre Long MD Vital Signs No data available for this section Problem List Condition Effective Dates Status Health Status Informant Endometriosis(Confir Resolved med) Allergies, Adverse Reactions, Alerts Substance Reaction Severity Status NKDA Active Medications No data available for this section Results No data available for this section Immunizations No data available for this section [...]
[2018-02-17] MEDS ORDERED: SODIUM CHLORIDE 0.9% 1000ML 1,000 ML IV STA (21:36)
[2018-02-17] MEDS ORDERED: CEFTRIAXONE SOD 1 GM VIAL IV NR (21:45)
[2018-02-17 21:51] LABS: BASOPHILS % 0.3 % (0.0-1.0); EOSINOPHILS # (AUTO) 0.2 (0.0-0.4); EOSINOPHILS % 2.3 % (0.0-6.0); HEMATOCRIT 37.9 % (34.2-44.1); HEMOGLOBIN 12.5 g/dL (12.0-16.0); LYMPHOCYTES # (AUTO) 2.8 (1.0-3.2); LYMPHOCYTES % 27.1 % (18.0-39.1); MEAN CORPUSCULAR HEMOGLOBIN 29.6 pg (28-32); MEAN CORPUSCULAR VOLUME 89.6 fL (81-99); MONOCYTES # (AUTO) 0.4 (0.2-0.8); MONOCYTES % 3.4 % (4.4-11.3); NEUTROPHILS % 66.5 % (38.7-80.0); PLATELET COUNT 238 x10e3/uL (140-360); RED BLOOD COUNT 4.23 x10e6/uL (3.6-5.1)
[2018-02-17 22:04] LABS: PREGNANCY TEST, URINE NEGATIVE (NEGATIVE)
[2018-02-17 22:10] LABS: ALANINE AMINOTRANSFERASE 22 IU/L (0-55); ALBUMIN 3.7 g/dL (3.5-5.0); ALBUMIN/GLOBULIN RATIO 0.9 (0.8-2.0); ALKALINE PHOSPHATASE 88 IU/L (40-150); AMYLASE 39 U/L (25-125); ANION GAP 15.1 mmol/L (8-16); BLOOD UREA NITROGEN 15 mg/dL (7-26); BUN/CREATININE RATIO 19 (6-25); CALCIUM 9.1 mg/dL (8.4-10.2); CARBON DIOXIDE 23 mmol/L (22-29); CHLORIDE 101 mmol/L (98-107); CREATININE, SERUM 0.79 mg/dL (0.57-1.11); EST GLOMERULAR FILTRATION RATE > 60 ML/MIN (60-); GLUCOSE 165 mg/dL (74-118); LIPASE 31 U/L (8-78); POTASSIUM 4.1 mmol/L (3.5-5.1); SODIUM 135 mmol/L (136-145)
[2018-02-17 22:11] LABS: BILIRUBIN,URINE NEGATIVE (NEGATIVE); CLARITY,URINE HAZY (CLEAR); COLOR,URINE YELLOW (YELLOW); KETONES,URINE NEGATIVE (NEGATIVE); URINE UROBILINOGEN 0.2 mg/dL (0.2 - 1)
[2018-02-17 22:14] LABS: LEUKOCYTE ESTERASE ,URINE TRACE (NEGATIVE)
[2018-02-17 22:15] LABS: NITRITE,URINE POSITIVE (NEGATIVE); PROTEIN,URINE DIPSTICK TRACE (NEGATIVE)
[2018-02-17 22:24] LABS: BACTERIA,URINE MANY /HPF; EPITHELIAL CELLS,URINE MANY /LPF; WBC,URINE (MAN) 21-50 /HPF (0-5)
--- NOTE | 2018-02-17 22:55 | Diagnostic Imaging Report ---
EXAM: CT Abdomen and Pelvis WITHOUT contrast INDICATION: Lower back and right flank pain. ^STONE PROTOCOL ^[id number] ^2217 ^Y COMPARISON: None. TECHNIQUE: Abdomen and pelvis were scanned utilizing a multidetector helical scanner from the lung base to the pubic symphysis without administration of IV contrast. Coronal and sagittal reformations were obtained. Routine protocol was performed. IV CONTRAST: None ORAL CONTRAST: Water COMPLICATIONS: None RADIATION DOSE: Total DLP: 1284.9 mGy*cm Estimated effective dose: (DLP x 0.015 x size factor) mSv CTDIvol has been reviewed. It is below the limits set by the Radiation Protocol Committee (RPC). Dose modulation, iterative reconstruction, and/or weight based adjustment of the mA/kV was utilized to reduce the radiation dose to as low as reasonably achievable. FINDINGS: Absence of intravenous contrast decreases sensitivity for detection of focal lesions and vascular pathology. LINES and TUBES: None. LOWER THORAX: Unremarkable HEPATOBILIARY: Diffuse hypoattenuation of the liver compatible with hepatic steatosis. Hepatomegaly liver measuring approximately 23 cm in length. No focal hepatic lesions. No biliary ductal dilation. GALLBLADDER: No radio-opaque stones or sludge. No wall thickening. SPLEEN: Enlarged measuring 14.1 cm in length. PANCREAS: No focal masses or ductal dilatation. ADRENALS: No adrenal nodules KIDNEYS/URETERS: No hydronephrosis. No cystic or solid mass lesions. No stones. GI TRACT: No abnormal distention, wall thickening, or evidence of bowel obstruction. Appendix is normal. PELVIC ORGANS/BLADDER: Lobulated appearance of the uterus likely secondary to underlying fibroids. Bladder is collapsed, limiting evaluation. Ovaries appear relatively symmetric in size. LYMPH NODES: No lymphadenopathy. VESSELS: Unremarkable. PERITONEUM / RETROPERITONEUM: No free air or fluid. BONES: Unremarkable. SOFT TISSUES: Low transverse abdominal scar. IMPRESSION: 1. No acute abnormalities in the abdomen or pelvis. 2. No nephrolithiasis. 3. Hepatic steatosis and hepatomegaly. 4. Splenomegaly. Signed by: DR. Sid Gramajo MD on 02/17/2018 10:51 PM
[2018-02-17] MEDS ORDERED: ONDANSETRON HCL INJ 2 MG/ML VIAL IV STA (23:25)
[2018-02-17] MEDS ORDERED: MORPHINE SULFATE INJ 4 MG/ML INJ IV STA (23:25)
[2018-02-17] MEDS ORDERED: MORPHINE SULFATE INJ 4 MG/ML INJ ONE (23:35)
[2018-02-17] MEDS ORDERED: ONDANSETRON HCL INJ 2 MG/ML VIAL ONE (23:35)
[2018-02-17 23:48] VITALS: BP 18/45
== END 2018-02-17 23:55 | disposition home or self-care (01) ==
LOC: ER 20:44
DX: M54.5 Low back pain (principal); R11.0 Nausea; R10.9 Unspecified abdominal pain; N10 Acute pyelonephritis
CPT/HCPCS: 36415; 74176; 80053; 81001; 81025; 82150; 83690; 85025; 87086; 87186; 96374; 99284; J0696; J2270; J2405; J7030

== ENCOUNTER 2018-06-09 15:49 | Observation (INO) | payer OTHER ==
[~2018-06-09] VITALS: Ht 154.9 cm; Wt 148.8 kg
--- OUTSIDE RECORDS SUMMARY | 2018-06-09 15:52 | XMS REPORT | Continuity of Care Document ---
Author Author [facility] Interface Address Unknown Phone Unavailable Problems Problem Status Onset Date Classification Date Reported Comments Source UNK Active 05/03/2016 [facility] ABD PAIN Active 01/16/2016 [facility] ABDOMINAL PAIN, FAILED OP MANAGEMENT Active 01/16/2016 [facility] Discharge Diagnosis: Abdominal pain, LLQ 01/10/2016 01/13/2016 [facility] Discharge Diagnosis: Uterine leiomyoma 01/10/2016 01/13/2016 [facility] ABDOMINAL PAIN Active 01/09/2016 [facility] Discharge Diagnosis: Abdominal pain 12/24/2015 12/27/2015 [facility] Discharge Diagnosis: Abdominal wall pain in left flank 09/15/2015 09/18/2015 [facility] Endometriosis Resolved Problem 01/13/2016 [facility] Final: Pain, unspecified 01/22/2016 [facility] Morbid obesity Active Problem 05/12/2016 [facility] Obesity Resolved Problem 05/12/2016 [facility] PAIN, UNSPECIFIED Active [facility] GENERALIZED ABDOMINAL PAIN Active [facility] Medications Medication Details Route Status Patient Instructions Ordering Provider Order Date Source Oxycodone Hydrochloride 5 MG Oral Tablet 10 mg, Route: PO, Drug form: TAB, ONCE, Dosing Weight 134.545, kg, PRN Pain Score 7-10, Start date: 05/09/16 10:34:00 [employer] POCK[employer]TER Inactive 05/09/2016 [facility] ropivacaine Dosing: Per Nerve Block Dosing Order, Route: NERVE BLOCK, Start date: 05/09/16 10:12:00 [employer]OCKST[employer] POCKET SETTER 400 mL, Dosing Weight 134.545, kg, Duration: 30 day, Stop date: 06/08/16 11:11:00 CDT No Longer Active 05/09/2016 [facility] neostigmine (ANES) Route: IV, Drug form: INJ, ONCE, Stop date: 05/09/16 9:49:00 LOCKSTITCH POCKET SETTER Inactive 05/09/2016 [facility] hydromorphone (ANES) Route: IV, Drug form: INJ, ONCE, Stop date: 05/09/16 9:49:00 [employer] POCKET SETTER Inactive 05/09/2016 [facility] glycopyrrolate (ANES) Route: IV, Drug form: INJ, ONCE, Stop date: 05/09/16 9:49:00 [employer] POCKET SETTER Inactive 05/09/2016 [facility] Hydralazine 10 mg, Route: IV, PRN, Dosing Weight 134.545, kg, PRN Elevated BP, Start date: 05/09/16 9:49:00 LOCKSTITCH POCKET SETTER, Duration: 30 day, Stop date: 06/08/16 10:48:00 CDT No Longer Active 05/09/2016 [facility] Promethazine 6.25 mg, Route: IVPB, PRN, Dosing Weight 134.545, kg, PRN as needed for nausea/vomiting, Start date: 05/09/16 9:49:00 LOCKSTITCH POCKET SETTER, Duration: 30 day, Stop date: 06/08/16 10:48:00 CDT No Longer Active 05/09/2016 [facility] Fentanyl 50 microgram, Route: IV, Q5Min, Dosing Weight 134.545, kg, PRN Pain Score 7-10, Start date: 05/09/16 9:49:00 L[employer]STITCH POCKET SETTER, Duration: 4 doses or times, Stop date: Limited # of times No Longer Active 05/09/2016 [facility] Demerol HCl 50 mg, Route: IV, Q10Min, Dosing Weight 134.545, kg, PRN Pain Score 7-10, Start date: 05/09/16 9:49:00 LOCKSTITCH POCKET SETTER, Stop date: 05/13/16 9:48:00 LOCKSTITCH POCKET SETTER No Longer Active 05/09/2016 [facility] Ibuprofen 600 mg, 1 tab, Route: PO, Drug form: TAB, Q6H, Dosing Weight 134.545, kg, PRN Pain Score 1-3, Start date: 05/09/16 9:49:00 LOCKSTITCH POCKET SETTER, Duration: 30 day, Stop date: 06/08/16 9:48:00 CDTNotes: (Same as: Motrin) "Do Not Crush" Take with food. No Longer Active 05/09/2016 [facility] Ketorolac 30 mg, 1 mL, Route: IVP, Drug form: INJ, ONCE, Dosing Weight 134.545, kg, Start date: 05/09/16 9:49:00 LOCKSTITCH POCKET SETTER, Duration: 1 doses or times, Stop date: 05/09/16 9:49:00 CSTNotes: (Same as:Toradol) IV bolus must be given >15 seconds. Give IM administration slowly and deeply into the muscle. Not for use > 4 days MEDICATION WASTE Product Size: 30 mg Product Wasted: ___ mg Inactive 05/09/2016 [facility] Naloxone 0.4 mg, 1 mL, Route: IVP, Drug form: INJ, Q2MIN, Dosing Weight 134.545, kg, PRN Narcotic Reversal, Start date: 05/09/16 9:49:00 LOCKSTITCH POCKET SETTER, Duration: 8 doses or times, Stop date: Limited # of timesNotes: Same as Narcan No Longer Active 05/09/2016 [facility] Flumazenil 0.2 mg, 2 mL, Route: IVP, Drug form: INJ, PRN, Dosing Weight 134.545, kg, PRN Benzodiazepine Reversal, Initial dose, Start date: 05/09/16 9:49:00 LOCKSTITCH POCKET SETTER, Duration: 30 day, Stop date: 06/08/16 10:48:00 C DTNotes: (Same as: Romazicon) No Longer Active 05/09/2016 [facility] Morphine 2 mg, 1 mL, Route: IVP, Drug form: INJ, Q5Min, Dosing Weight 134.545, kg, PRN Pain Score 4-6, Start date: 05/09/16 9:49:00 LOCKSTITCH POCKET SETTER, Duration: 5 doses or times, Stop date: Limited # of timesNotes: (Same a s:MORPhine Sulfate) No Longer Active 05/09/2016 [facility] Hydromorphone 0.5 mg, 0.5 mL, Route: IVP, Drug form: INJ, Q5Min, Dosing Weight 134.545, kg, PRN Pain Score 7-10, Start date: 05/09/16 9:49:00 LOCKSTITCH POCKET SETTER, Duration: 4 doses or times, Stop date: Limited # of times No Longer Active 05/09/2016 [facility] Ondansetron 4 mg, 2 mL, Route: IVP, Drug form: INJ, ONCE, Dosing Weight 134.545, kg, PRN Nausea & Vomiting, Start date: 05/09/16 9:49:00 CSTNotes: (Same as: Zofran) MEDICATION WASTE Product Size: 4 mg Product Wasted: ___ mg No Longer Active 05/09/2016 [facility] Docusate Sodium 100 MG Oral Capsule [Colace] 100 mg=1 cap, PO, BID, PRN Constipation, # 20 cap, 0 Refill(s), Pharmacy: [facility]/pharmacy #[id number] Active 05/09/2016 [facility] Acetaminophen 300 MG / Codeine Phosphate 30 MG Oral Tablet [Tylenol with Codeine #3] 1 tab, PO, Q6H, PRN pain, X 7 day, # 28 tab, 0 Refill(s) Active 05/09/2016 [facility] ondansetron (ANES) Route: IV, Drug form: INJ, ONCE, Stop date: 05/09/16 9:18:00 LOCKSTITCH POCKET SETTER Inactive 05/09/2016 [facility] Calcium Chloride 0.0014 MEQ/ML / Potassium Chloride 0.004 MEQ/ML / Sodium Chloride 0.103 MEQ/ML / Sodium Lactate 0.028 MEQ/ML Injectable Solution 1,000 mL, Rate: 25 ml/hr, Infuse over: 40 hr, Route: IV, Dosing Weight 134.545 kg, Total Volume: 1,000, Start date: 05/09/16 9:10:00 LOCKSTITCH POCKET SETTER, Duration: 30 day, Stop date: 06/08/16 9:09:00 CDT Inactive 05/09/2016 [facility] rocuronium (ANES) Route: IV, Drug form: INJ, ONCE, Stop date: 05/09/16 9:08:00 LOCKSTITCH POCKET SETTER Inactive 05/09/2016 [facility] metoclopramide (ANES) Route: IV, Drug form: INJ, ONCE, Stop date: 05/09/16 9:08:00 LOCKSTITCH POCKET SETTER Inactive 05/09/2016 [facility] propofol (ANES) Route: IV, Drug form: INJ, ONCE, Stop date: 05/09/16 9:08:00 LOCKSTITCH POCKET SETTER Inactive 05/09/2016 [facility] ceFAZolin (ANES) Route: IV, Drug form: INJ, ONCE, Stop date: 05/09/16 9:08:00 LOCKSTITCH POCKET SETTER Inactive 05/09/2016 [facility] fentaNYL (ANES) Route: IV, Drug form: INJ, ONCE, Stop date: 05/09/16 9:08:00 LOCKSTITCH POCKET SETTER Inactive 05/09/2016 [facility] lidocaine (ANES) Route: IV, Drug form: INJ, ONCE, Stop date: 05/09/16 9:08:00 LOCKSTITCH POCKET SETTER Inactive 05/09/2016 [facility] acetaminophen (ANES) Route: IV, Drug form: INJ, ONCE, Stop date: 05/09/16 8:58:00 LOCKSTITCH POCKET SETTER Inactive 05/09/2016 [facility] midazolam (ANES) Route: IV, Drug form: SOLN, ONCE, Stop date: 05/09/16 8:42:00 LOCKSTITCH POCKET SETTER Inactive 05/09/2016 [facility] LR 1000 mL INJ (ANES) Route: IV, Total Volume: 1,000, Start date: 05/09/16 8:11:00 LOCKSTITCH POCKET SETTER, Stop date: 05/09/16 9:11:00 LOCKSTITCH POCKET SETTER Inactive 05/09/2016 [facility] pantoprazole 40 mg, 1 tab, Route: PO, Drug form: ECTAB, Before Breakfast, Dosing Weight 135.909, kg, Start date: 01/20/16 7:30:00 LOCKSTITCH POCKET SETTER, Duration: 30 day, Stop date: 02/18/16 7:30:00 CSTNotes: Tablet should not be chewed or crushed. (Same as: Protonix) No Longer Active 01/20/2016 [facility] Streptococcus pneumoniae serotype 1 capsular antigen diphtheria [id number] protein conjugate vaccine / Streptococcus pneumoniae serotype 14 capsular antigen diphtheria [id number] protein conjugate vaccine / Streptococcus pneumoniae serotype 18C capsular antigen d 0.5 mL, Route: IM, Drug Form: INJ, Daily, Start date: 01/19/16 9:00:00 LOCKSTITCH POCKET SETTER, Duration: 1 doses or times, Stop date: 01/19/16 9:00:00 CSTNotes: Lightly roll vial (DO NOT SHAKE) before administration. (Same as: Prevnar 13) Inactive 01/19/2016 [facility] tramadol hydrochloride 50 MG Oral Tablet 50 mg=1 tab, PO, BID, PRN Pain Score 4-6, X 15 day, # 30 tab, 0 Refill(s) Active 01/19/2016 [facility] Ciprofloxacin 500 MG Oral Tablet [Cipro] 500 mg=1 tab, PO, Q12H, X 7 day, # 14 tab, 0 Refill(s) Active 01/19/2016 [facility] pantoprazole 40 mg oral enteric coated tablet 40 mg=1 tab, PO, Before Breakfast, # 30 tab, 0 Refill(s) Active 01/19/2016 [facility] hydrocortisone acetate 25 MG Rectal Suppository [Anusol HC] 25 mg=1 supp, MD, BID, X 14 day, # 28 supp, 0 Refill(s) Active 01/19/2016 [facility] hydrocortisone acetate 25 MG Rectal Suppository [Anusol HC] 25 mg, 1 supp, Route: MD, BID, Drug form: SUPP, Start date: 01/18/16 17:00:00 LOCKSTITCH POCKET SETTER, Duration: 7 day, Stop date: 01/25/16 9:00:00 CSTNotes: (Same as: Anusol- HC, Hemorrhoidal HC) No Longer Active 01/18/2016 [facility] Sodium Chloride 0.154 MEQ/ML Injectable Solution 1,000 mL, Rate: 25 ml/hr, Infuse over: 40 hr, Route: IV, Dosing Weight 135.909 kg, Total Volume: 1,000, Start date: 01/18/16 11:00:00 LOCKSTITCH POCKET SETTER, Duration: 1 day, Stop date: 01/19/16 10:59:00 LOCKSTITCH POCKET SETTER Inactive 01/18/2016 [facility] Citrate of Magnesia 300 ml, Route: PO, Drug Form: LIQ, Dosing Weight 135.909, kg, ONCE, Start date: 01/17/16 20:16:00 LOCKSTITCH POCKET SETTER, Stop date: 01/17/16 20:16:00 CSTNotes: (Same as: Citrate of Magnesia) Concentration: 1.745 gm / 30 mL Inactive 01/18/2016 [facility] Phenergan 25 mg, 1 supp, Route: MD, Drug form: SUPP, ONCE, Dosing Weight 135.909, kg, Start date: 01/17/16 17:00:00 LOCKSTITCH POCKET SETTER, Stop date: 01/17/16 17:00:00 CSTNotes: (Same as: Phenergan) Inactive 01/17/2016 [facility] magnesium citrate 58.2 MG/ML Oral Solution 300 ml, Route: PO, Drug Form: LIQ, Dosing Weight 135.909, kg, ONCE, Start date: 01/17/16 9:07:00 LOCKSTITCH POCKET SETTER, Stop date: 01/17/16 9:07:00 CSTNotes: (Same as: Citrate of Magnesia) Concentration: 1.745 gm / 30 mL Inactive 01/17/2016 [facility] Dulcolax Laxative 30 mg, 6 tab, Route: PO, Drug form: ECTAB, ONCE, Dosing Weight 135.909, kg, Start date: 01/17/16 7:55:00 LOCKSTITCH POCKET SETTER, Stop date: 01/17/16 7:55:00 CSTNotes: (Same As: Dulcolax, Correctol) (Do Not Crush) "Do Not Crush" Inactive 01/17/2016 [facility] magnesium citrate 58.2 MG/ML Oral Solution 240 mL, Route: PO, Drug Form: LIQ, Dosing Weight 135.909, kg, ONCE, Start date: 01/17/16 7:55:00 LOCKSTITCH POCKET SETTER, Stop date: 01/17/16 7:55:00 CSTNotes: (Same as: Citrate of Magnesia) Concentration: 1.745 gm / 30 mL Inactive 01/17/2016 [facility] Sodium Chloride 0.154 MEQ/ML Injectable Solution 1,000 mL, Rate: 80 ml/hr, Infuse over: 12.5 hr, Route: IV, Dosing Weight 135.909 kg, Total Volume: 1,000, Start date: 01/16/16 19:53:00 LOCKSTITCH POCKET SETTER, Stop date: 02/15/16 19:52:00 LOCKSTITCH POCKET SETTER No Longer Active 01/17/2016 [facility] Saline Flush 0.9% 10 ml, Route: IVP, Drug Form: INJ, Dosing Weight 135.909, kg, PRN, PRN Line Flush, Start date: 01/16/16 19:53:00 LOCKSTITCH POCKET SETTER, Duration: 30 day, Stop date: 02/15/16 19:52:00 CSTNotes: (Same as: BD Posiflush) No Longer Active 01/17/2016 [facility] Acetaminophen 325 MG / Hydrocodone Bitartrate 5 MG Oral Tablet 1 tab, Route: PO, Drug Form: TAB, Dosing Weight 137.273, kg, QID, PRN Pain Score 4-6, Start date: 01/16/16 19:53:00 LOCKSTITCH POCKET SETTER, Duration: 30 day, Stop date: 02/15/16 19:52:00 CSTNotes: (Same as: [place] 325/5) Do not exceed 4gm/day of acetaminophen. No Longer Active 01/17/2016 [facility] Acetaminophen 650 mg, 2 tab, Route: PO, Drug form: TAB, Q6H, Dosing Weight 137.273, kg, PRN Pain 1-3/Temp > 100.4 F, Start date: 01/16/16 19:53:00 LOCKSTITCH POCKET SETTER, Duration: 30 day, Stop date: 02/15/16 19:52:00 CSTNotes: Do not exceed 4 gm/day. (Same as: Tylenol) No Longer Active 01/17/2016 [facility] Ondansetron 4 mg, 2 mL, Route: IVP, Drug form: INJ, Q4H, Dosing Weight 137.273, kg, PRN Nausea & Vomiting, Start date: 01/16/16 19:53:00 LOCKSTITCH POCKET SETTER, Duration: 30 day, Stop date: 02/15/16 19:52:00 CSTNotes: (Same as: Horace) MEDICATION WASTE Product Size: 4 mg Product Wasted: ___ mg No Longer Active 01/17/2016 [facility] Morphine 2 mg, 1 mL, Route: IVP, Drug form: INJ, Q4H, Dosing Weight 135.909, kg, PRN Pain Score 7-10, Start date: 01/16/16 19:53:00 LOCKSTITCH POCKET SETTER, Duration: 30 day, Stop date: 02/15/16 19:52:00 CSTNotes: (Same as:MORPhine Sulfate) No Longer Active 01/17/2016 [facility] polyethylene glycol 3350 with electrolytes 4 Liter, Route: PO, Drug Form: PDR/REC, Dosing Weight 135.909, kg, ONCE, Start date: 01/16/16 18:00:00 LOCKSTITCH POCKET SETTER, Duration: 1 doses or times, Stop date: 01/16/16 18:00:00 CSTNotes: (polyethylene glycol electrolyte solution 4 Liter bottle) (Same as: Golytely, Colyte) Inactive 01/17/2016 [facility] Bisacodyl 20 mg, 4 tab, Route: PO, Drug form: ECTAB, ONCE, Dosing Weight 135.909, kg, Start date: 01/16/16 17:00:00 LOCKSTITCH POCKET SETTER, Stop date: 01/16/16 17:00:00 CSTNotes: (Same As: Dulcolax, Correctol) (Do Not Crush) "Do Not Crush" Inactive 01/16/2016 [facility] Metronidazole 500 mg, 100 mL, Route: IVPB, Drug form: INJ, [id number], Dosing Weight 137.273, kg, Start date: 01/16/16 17:00:00 LOCKSTITCH POCKET SETTER, Duration: 30 day, Stop date: 02/15/16 13:00:00 CSTNotes: (Same as: Flagjesi) Avoid alcohol. No Longer Active 01/16/2016 [facility] 200 ML Ciprofloxacin 2 MG/ML Injection [Cipro] 400 mg, 200 mL, Route: IVPB, Drug form: INJ, [id number], Dosing Weight 137.273, kg, Start date: 01/16/16 17:00:00 LOCKSTITCH POCKET SETTER, Duration: 30 day, Stop date: 02/15/16 10:00:00 CSTNotes: Do not refrigerate No Longer Active 01/16/2016 [facility] Metoclopramide 10 MG Oral Tablet 10 mg, 1 tab, Route: PO, Drug form: TAB, ONCE, Dosing Weight 135.909, kg, Start date: 01/16/16 16:16:00 LOCKSTITCH POCKET SETTER, Stop date: 01/16/16 16:16:00 CSTNotes: (Same as: Reglan) Take 30 min before meals Inactive 01/16/2016 [facility] Ondansetron 4 MG Disintegrating Tablet [Zofran] 4 mg=1 tab, PO, BID, PRN Nausea and Vomiting, Dissolve tab under tongue, X 5 day, # 10 tab, 0 Refill(s) Active 01/10/2016 [facility] Zofran 4 mg, 2 mL, Route: IVP, Drug form: INJ, ONCE, Dosing Weight 137.273, kg, Priority: STAT, Start date: 01/10/16 3:26:00 CDT, Stop date: 01/10/16 3:26:00 CDTNotes: (Same as: Zofran) MEDICATION WASTE Product Size: 4 mg Product Wasted: ___ mg Inactive 01/10/2016 [facility] Saline Flush 0.9% 10 mL, Route: IVP, Drug Form: INJ, Dosing Weight 137.273, kg, PRN, PRN Line Flush, Start date: 01/10/16 0:43:00 CDT, Duration: 30 day, Stop date: 02/08/16 23:42:00 CSTNotes: (Same as: BD Posiflush) Inactive 01/10/2016 [facility] Sodium Chloride 0.154 MEQ/ML Injectable Solution 1,000 mL, 2,000 ml/hr, Infuse Over: 30 minutes, Route: IV, 1,000, Drug form: INJ, ONCE, Priority: STAT, Dosing Weight 137.273 kg, Start date: 01/10/16 0:43:00 CDT, Duration: 1 doses or times, Stop date: 01/10/16 0:43:00 CDT Inactive 01/10/2016 [facility] Hydromorphone 1 mg, 1 mL, Route: IVP, Drug form: INJ, ONCE, Dosing Weight 137.273, kg, Priority: STAT, Start date: 01/10/16 0:43:00 CDT, Stop date: 01/10/16 0:43:00 CDTNotes: Same as: Dilaudid Inactive 01/10/2016 [facility] tramadol hydrochloride 50 MG Oral Tablet 50 mg=1 tab, PO, Q8H, PRN as needed for pain, X 5 day, # 15 tab, 0 Refill(s) Active 12/24/2015 [facility] Morphine 4 mg, 1 mL, Route: IVP, Drug form: INJ, ONCE, Dosing Weight 128.9, kg, Priority: STAT, Start date: 12/24/15 0:42:00 CDT, Stop date: 12/24/15 0:42:00 CDTNotes: (Same as:MORPhine Sulfate) Inactive 12/24/2015 [facility] Ondansetron 4 mg, 2 mL, Route: IVP, Drug form: INJ, ONCE, Dosing Weight 128.9, kg, Priority: STAT, Start date: 12/24/15 0:42:00 CDT, Stop date: 12/24/15 0:42:00 CDTNotes: (Same as: Zofran) MEDICATION WASTE Product Size: 4 mg Product Wasted: ___ mg Inactive 12/24/2015 [facility] Morphine 8 mg, Route: IVP, ONCE, Dosing Weight 130.636, kg, Priority: STAT, Start date: 09/15/15 5:09:00 CDT, Stop date: 09/15/15 5:09:00 CDT Inactive 09/15/2015 [facility] Ondansetron 4 mg, Route: IVP, ONCE, Dosing Weight 130.636, kg, Priority: STAT, Start date: 09/15/15 5:09:00 CDT, Stop date: 09/15/15 5:09:00 CDT Inactive 09/15/2015 [facility] Saline Flush 0.9% 10 mL, Route: IVP, Drug Form: INJ, Dosing Weight 130.636, kg, PRN, PRN Line Flush, Start date: 09/15/15 5:09:00 CDT, Duration: 30 day, Stop date: 10/15/15 5:08:00 CDTNotes: (Same as: BD Posiflush) Inactive 09/15/2015 [facility] Sodium Chloride 0.154 MEQ/ML Injectable Solution 1,000 mL, 2,000 ml/hr, Infuse Over: 30 minutes, Route: IV, ONCE, Priority: STAT, Dosing Weight 130.636 kg, Start date: 09/15/15 5:09:00 CDT, Duration: 1 doses or times, Stop date: 09/15/15 5:09:00 CDT Inactive 09/15/2015 [facility] Allergies, Adverse Reactions, Alerts Substance Category Reaction Severity Reaction type Status Date Reported Comments Source Immunizations Immunization Date Given Site Status Last Updated Comments Source pneumococcal 13-valent vaccine 01/19/2016 Not Given [facility] Results Order Name Results Value Reference [...] should be multiplied by the estimated BMI. [facility] CHEM PANEL AST 14 unit/L 0 - 37 05/07/2016 [facility] CHEM PANEL Alk Phos 91 unit/L [...] A/G Ratio 1.0 0.7 - 1.6 05/07/2016 [facility] CHEM PANEL Globulin 4.0 g/dL 2.7 - 4.2 05/07/2016 [facility] CHEM PANEL AGAP 13.1 meq/L 10.0 - 20.0 05/07/2016 [facility] CHEM PANEL B/C Ratio 19 6 - 25 05/07/2016 [facility] HEMATOLOGY Monocytes 4.7 % 2.0 - 12.0 05/07/2016 [facility] HEMATOLOGY Segs 68.3 % 45.0 - 75.0 05/07/2016 [facility] HEMATOLOGY Eosinophils # 0.4 K/CMM 0.0 - 0.5 05/07/2016 [facility] HEMATOLOGY Lymphocytes 23.2 % 20.0 - 40.0 05/07/2016 [facility] HEMATOLOGY Segs-Bands # 7.1 K/CMM 1.5 - 8.1 05/07/2016 [facility] HEMATOLOGY Lymphocytes # 2.4 K/CMM 1.0 - 5.5 05/07/2016 [facility] HEMATOLOGY Monocytes # 0.5 K/CMM 0.0 - 0.8 05/07/2016 [facility] Eosinophils 3.4 % 0.0 - 4.0 05/07/2016 [facility] Basophils 0.4 % 0.0 - 1.0 05/07/2016 [facility] RBC 4.33 M/CMM 4.20 - 5.40 05/07/2016 [facility] Hgb 12.1 g/dL 12.0 - 16.0 05/07/2016 [facility] Hct 36.8 % 36.0 - 48.0 05/07/2016 [facility] Platelet 258 K/CMM 133 - 450 05/07/2016 [facility] MPV 8.9 fL 7.4 - 10.4 05/07/2016 [facility] MCHC 32.8 g/dL 32.0 - 36.0 05/07/2016 [facility] RDW 14.7 % 11.5 - 14.5 05/07/2016 [facility] MCV 85.0 fL 80.0 - 98.0 05/07/2016 [facility] MCH 27.8 pg 27.0 - 31.0 05/07/2016 [facility] WBC 10.4 K/CMM 3.7 - 10.4 05/07/2016 [facility] URINE CHEM U Preg Negative (05/07/16 8:08 AM) Negative 05/07/2016 [facility] [address] Stone CT Renal Stone CT [...] Lobulated uterus likely due to fibroids. SL: [id number] 01/18/2016 - - Read by: Gumaro Mix MD Dictated Date/time: 01/19/16 07:16 Electronically Signed by: Gumaro Mix MD 01/19/16 07:22 FINAL REPORT [facility] CHEM PANEL Lipase Lvl 98 unit/L 73 - 393 01/18/2016 [facility] CHEM PANEL Albumin Lvl 3.3 g/dL 3.5 - 5.0 01/18/2016 [facility] CHEM PANEL AST 22 unit/L 0 - 37 01/18/2016 [facility] CHEM PANEL ALT 28 unit/L 0 - 65 01/18/2016 [facility] CHEM PANEL Alk Phos 76 unit/L 39 - 136 01/18/2016 [facility] CHEM PANEL Bili Indirect 0.6 mg/dL 0.0 - 1.0 01/18/2016 [facility] CHEM PANEL Bili Total 0.8 mg/dL 0.2 - 1.3 01/18/2016 [facility] CHEM PANEL Bili Direct 0.2 mg/dL 0.0 - 0.3 01/18/2016 [facility] CHEM PANEL Globulin 3.4 g/dL 2.7 - 4.2 01/18/2016 [facility] CHEM PANEL A/G Ratio 1.0 0.7 - 1.6 01/18/2016 [facility] CHEM PANEL Total Protein 6.7 g/dL 6.4 - 8.4 01/18/2016 [facility] URINE AND STOOL UA [place] Yeast Few /HPF None Seen /HPF 01/17/2016 [facility] URINE AND STOOL UA Color Ltyellow 01/17/2016 [facility] URINE AND STOOL UA Urobilinogen <=1.0 mg/dL 0.1 - 1.0 01/17/2016 [facility] URINE AND STOOL UA Protein Negative mg/dL Negative mg/dL 01/17/2016 [facility] URINE AND STOOL UA Glucose Negative mg/dL Negative mg/dL 01/17/2016 [facility] URINE AND STOOL UA Ketones Trace mg/dL Negative mg/dL 01/17/2016 [facility] URINE AND STOOL UA Bili Negative *NA* (01/16/16 9:03 PM) Negative 01/17/2016 [facility] URINE AND STOOL UA pH 6.0 5.0 - 8.0 01/17/2016 [facility] URINE AND STOOL UA Sq Epi Moderate /LPF Few /LPF 01/17/2016 [facility] URINE AND STOOL UA Leuk Est Large *ABN* (01/16/16 9:03 PM) Negative 01/17/2016 [facility] URINE AND STOOL UA Blood Moderate *ABN* (01/16/16 9:03 PM) Negative 01/17/2016 [facility] URINE AND STOOL UA Nitrite Negative (01/16/16 9:03 PM) Negative 01/17/2016 [facility] URINE AND STOOL UA Bacteria Occasional /HPF None Seen /HPF 01/17/2016 [facility] URINE AND STOOL UA Hyal Cast 2 /LPF 0 - 2 01/17/2016 [facility] URINE AND STOOL UA RBC 7 /HPF 0 - 2 01/17/2016 [facility] URINE AND STOOL UA Mucus Few /LPF None Seen /LPF 01/17/2016 [facility] URINE AND STOOL UA WBC 37 /HPF 0 - 5 01/17/2016 [facility] URINE AND STOOL UA Spec Grav 1.012 <=1.030 01/17/2016 [facility] URINE AND STOOL UA Turbidity Slight *ABN* (01/16/16 9:03 PM) Clear 01/17/2016 [facility] URINE CHEM U Preg Negative (01/16/16 9:03 PM) Negative 01/17/2016 [facility] CHEM PANEL Calcium Lvl 8.6 mg/dL 8.5 - 10.5 01/17/2016 [facility] CHEM PANEL Chloride Lvl 102 meq/L 95 - 109 01/17/2016 [facility] CHEM PANEL Potassium Lvl 4.7 meq/L 3.5 - 5.1 01/17/2016 [facility] CHEM PANEL CO2 28 meq/L 24 - 32 01/17/2016 [facility] CHEM PANEL eGFR 73 mL/min/1.73m2 01/17/2016 [...] should be multiplied by the estimated BMI. [facility] CHEM PANEL Glucose Lvl 91 mg/dL 70 - 99 01/17/2016 [facility] CHEM PANEL BUN 10 mg/dL 7 - 22 01/17/2016 [facility] CHEM PANEL Sodium Lvl 138 meq/L 135 - 145 01/17/2016 [facility] CHEM PANEL Creatinine Lvl 0.98 mg/dL 0.50 - 1.40 01/17/2016 [facility] CHEM PANEL AGAP 12.7 meq/L 10.0 - 20.0 01/17/2016 [facility] RDW 15.4 % 11.5 - 14.5 01/17/2016 [facility] MCV 84.4 fL 80.0 - 98.0 01/17/2016 [facility] Hct 36.0 % 36.0 - 48.0 01/17/2016 [facility] MCHC 33.4 g/dL 32.0 - 36.0 01/17/2016 [facility] MCH 28.2 pg 27.0 - 31.0 01/17/2016 [facility] Hgb 12.0 g/dL 12.0 - 16.0 01/17/2016 [facility] RBC 4.26 M/CMM 4.20 - 5.40 01/17/2016 [facility] WBC 9.1 K/CMM 3.7 - 10.4 01/17/2016 [facility] MPV 7.8 fL 7.4 - 10.4 01/17/2016 [facility] Platelet 226 K/CMM 133 - 450 01/17/2016 [facility] Eosinophils # 0.1 K/CMM 0.0 - 0.5 01/17/2016 [facility] Monocytes # 0.4 K/CMM 0.0 - 0.8 01/17/2016 [facility] Lymphocytes # 2.2 K/CMM 1.0 - 5.5 01/17/2016 [facility] Segs-Bands # 6.3 K/CMM 1.5 - 8.1 01/17/2016 [facility] Basophils 0.5 % 0.0 - 1.0 01/17/2016 [facility] HEMATOLOGY Eosinophils 1.5 % 0.0 - 4.0 01/17/2016 [facility] HEMATOLOGY Monocytes 4.7 % 2.0 - 12.0 01/17/2016 [facility] HEMATOLOGY Lymphocytes 23.8 % 20.0 - 40.0 01/17/2016 [facility] HEMATOLOGY Segs 69.5 % 45.0 - 75.0 01/17/2016 [facility] Abdomen 2 views DX Abdomen 2 views DX Study: 2 views of the abdomen. One view of chest History: Abdominal pain Comments: Lung apices not included in the [id number]. The trachea is midline. The cardiomediastinal silhouette is normal in size. No pneumonia. No pleural effusions or pneumothorax. No radiographic evidence of free intraperitoneal air. No dilated small or large bowel loops. Bones are within normal limits Impression: No bowel obstruction 01/16/2016 - - Read by: Netta Deluna MD Dictated Date/time: 01/16/16 21:15 Electronically Signed by: Netta Deluna MD 01/16/16 21:17 FINAL REPORT [facility] CHEM PANEL eGFR 100 mL/min/1.73m2 01/10/2016 [...] should be multiplied by the estimated BMI. [facility] CHEM PANEL ALT 30 unit/L 0 - 65 01/10/2016 [facility] CHEM PANEL AST 21 unit/L 0 - 37 01/10/2016 [facility] CHEM PANEL Glucose Lvl 106 mg/dL 70 - 99 01/10/2016 [facility] CHEM PANEL Creatinine Lvl 0.75 mg/dL 0.50 - 1.40 01/10/2016 [facility] CHEM PANEL Sodium Lvl 140 meq/L 135 - 145 01/10/2016 [facility] CHEM PANEL Chloride Lvl 105 meq/L 95 - 109 01/10/2016 [facility] CHEM PANEL CO2 26 meq/L 24 - 32 01/10/2016 [facility] CHEM PANEL Calcium Lvl 8.6 mg/dL 8.5 - 10.5 01/10/2016 [facility] CHEM PANEL Potassium Lvl 3.7 meq/L 3.5 - 5.1 01/10/2016 [facility] CHEM PANEL BUN 15 mg/dL 7 - 22 01/10/2016 [facility] CHEM PANEL Albumin Lvl 3.6 g/dL 3.5 - 5.0 01/10/2016 [facility] CHEM PANEL Total Protein 7.6 g/dL 6.4 - 8.4 01/10/2016 [facility] CHEM PANEL Alk Phos 93 unit/L 39 - 136 01/10/2016 [facility] CHEM PANEL Bili Total 0.9 mg/dL 0.2 - 1.3 01/10/2016 [facility] CHEM PANEL B/C Ratio 20 6 - 25 01/10/2016 [facility] CHEM PANEL AGAP 12.7 meq/L 10.0 - 20.0 01/10/2016 [facility] CHEM PANEL A/G Ratio 0.9 0.7 - 1.6 01/10/2016 [facility] CHEM PANEL Globulin 4.0 g/dL 2.7 - 4.2 01/10/2016 [facility] ENDOCRINOLOGY S Preg Negative *NA* (01/10/16 1:30 AM) Negative 01/10/2016 [facility] HEMATOLOGY Lymphocytes 29.9 % 20.0 - 40.0 01/10/2016 [facility] HEMATOLOGY Eosinophils 2.2 % 0.0 - 4.0 01/10/2016 [facility] HEMATOLOGY Monocytes 4.1 % 2.0 - 12.0 01/10/2016 [facility] HEMATOLOGY Segs 63.4 % 45.0 - 75.0 01/10/2016 [facility] HEMATOLOGY Eosinophils # 0.2 K/CMM 0.0 - 0.5 01/10/2016 [facility] HEMATOLOGY Basophils 0.4 % 0.0 - 1.0 01/10/2016 [facility] HEMATOLOGY Segs-Bands # 6.6 K/CMM 1.5 - 8.1 01/10/2016 [facility] HEMATOLOGY Lymphocytes # 3.1 K/CMM 1.0 - 5.5 01/10/2016 [facility] HEMATOLOGY Monocytes # 0.4 K/CMM 0.0 - 0.8 01/10/2016 [facility] HEMATOLOGY MCH 27.5 pg 27.0 - 31.0 01/10/2016 [facility] HEMATOLOGY MCHC 32.4 g/dL 32.0 - 36.0 01/10/2016 [facility] HEMATOLOGY Hct 36.4 % 36.0 - 48.0 01/10/2016 [facility] HEMATOLOGY MCV 84.7 fL 80.0 - 98.0 01/10/2016 [facility] HEMATOLOGY Hgb 11.8 g/dL 12.0 - 16.0 01/10/2016 [facility] HEMATOLOGY Platelet 245 K/CMM 133 - 450 01/10/2016 [facility] HEMATOLOGY MPV 8.0 fL 7.4 - 10.4 01/10/2016 [facility] HEMATOLOGY RDW 15.0 % 11.5 - 14.5 01/10/2016 [facility] HEMATOLOGY RBC 4.29 M/CMM 4.20 - 5.40 01/10/2016 [facility] HEMATOLOGY WBC 10.3 K/CMM 3.7 - 10.4 01/10/2016 [facility] URINE AND STOOL UA RBC null 0 - 2 01/10/2016 [facility] URINE AND STOOL UA WBC 18 /HPF 0 - 5 01/10/2016 [facility] URINE AND STOOL UA Mucus Few /LPF None Seen /LPF 01/10/2016 [facility] URINE AND STOOL UA Bili Negative *NA* (01/10/16 1:30 AM) Negative 01/10/2016 [facility] URINE AND STOOL UA Nitrite Negative (01/10/16 1:30 AM) Negative 01/10/2016 [facility] URINE AND STOOL UA Blood Large *ABN* (01/10/16 1:30 AM) Negative 01/10/2016 [facility] URINE AND STOOL UA Sq Epi Many /LPF Few /LPF 01/10/2016 [facility] URINE AND STOOL UA Leuk Est Trace *ABN* (01/10/16 1:30 AM) Negative 01/10/2016 [facility] URINE AND STOOL UA Urobilinogen <=1.0 mg/dL 0.1 - 1.0 01/10/2016 [facility] URINE AND STOOL UA Ketones Negative 01/10/2016 [facility] URINE AND STOOL UA Glucose Negative mg/dL Negative mg/dL 01/10/2016 [facility] URINE AND STOOL UA Protein 100 mg/dL Negative mg/dL 01/10/2016 [facility] URINE AND STOOL UA Color Yellow *NA* (01/10/16 1:30 AM) Yellow 01/10/2016 [facility] URINE AND STOOL UA Spec Grav 1.027 <=1.030 01/10/2016 [facility] URINE AND STOOL UA Turbidity Marked *ABN* (01/10/16 1:30 AM) Clear 01/10/2016 [facility] URINE AND STOOL UA pH 5.0 5.0 - 8.0 01/10/2016 [facility] URINE CHEM U Preg Negative (01/10/16 1:30 AM) Negative 01/10/2016 [facility] Abdomen/Pelvis CTA Abdomen/Pelvis CTA CLINICAL HISTORY: , [...] Sue Contreras MD 01/10/16 03:03 FINAL REPORT [facility] Pelvis Transvag w Pelvis Doppler US Pelvis [...] Sue Contreras MD 01/10/16 02:51 FINAL REPORT [facility] Pelvis Transvaginal US Pelvis Transvaginal US PELVIC ULTRASOUND 01/02/2016 12:40 PM CDT INDICATION: R10.2 Pelvic and perineal pain COMPARISON: CT abdomen pelvis 12/24/2015 TECHNIQUE: Real time transvaginal sonography was performed by an lead technologist in cytogenetics. Hydrographic Engineer static images were submitted for review. FINDINGS: [...] Radha Medrano MD 01/02/16 14:58 [facility] B/C Ratio 17 6 - 25 12/24/2015 [facility] CHEM PANEL AGAP 11.9 meq/L 10.0 - 20.0 12/24/2015 [facility] CHEM PANEL Globulin 4.2 g/dL 2.7 - 4.2 12/24/2015 [facility] CHEM PANEL A/G Ratio 0.9 0.7 - 1.6 12/24/2015 [facility] CHEM PANEL Calcium Lvl 8.9 mg/dL 8.5 - 10.5 12/24/2015 [facility] CHEM PANEL Sodium Lvl 137 meq/L 135 - 145 12/24/2015 [facility] CHEM PANEL Potassium Lvl 3.9 meq/L 3.5 - 5.1 12/24/2015 [facility] CHEM PANEL Chloride Lvl 104 meq/L 95 - 109 12/24/2015 [facility] CHEM PANEL eGFR 86 mL/min/1.73m2 12/24/2015 Result [...] should be multiplied by the estimated BMI. [facility] CHEM PANEL Albumin Lvl 3.6 g/dL 3.5 - 5.0 12/24/2015 [facility] CHEM PANEL AST 22 unit/L 0 - 37 12/24/2015 [facility] CHEM PANEL ALT 39 unit/L 0 - 65 12/24/2015 [facility] CHEM PANEL Glucose Lvl 130 mg/dL 70 - 99 12/24/2015 [facility] CHEM PANEL BUN 15 mg/dL 7 - 22 12/24/2015 [facility] CHEM PANEL CO2 25 meq/L 24 - 32 12/24/2015 [facility] CHEM PANEL Creatinine Lvl 0.86 mg/dL 0.50 - 1.40 12/24/2015 [facility] CHEM PANEL Total Protein 7.8 g/dL 6.4 - 8.4 12/24/2015 [facility] CHEM PANEL Bili Total 0.7 mg/dL 0.2 - 1.3 12/24/2015 [facility] CHEM PANEL Alk Phos 89 unit/L 39 - 136 12/24/2015 [facility] CHEM PANEL Lipase Lvl 154 unit/L 73 - 393 12/24/2015 [facility] HEMATOLOGY MPV 8.2 fL 7.4 - 10.4 12/24/2015 [facility] HEMATOLOGY Platelet 247 K/CMM 133 - 450 12/24/2015 [facility] HEMATOLOGY RDW 15.1 % 11.5 - 14.5 12/24/2015 [facility] HEMATOLOGY MCHC 32.7 g/dL 32.0 - 36.0 12/24/2015 [facility] HEMATOLOGY Hgb 12.0 g/dL 12.0 - 16.0 12/24/2015 [facility] HEMATOLOGY RBC 4.40 M/CMM 4.20 - 5.40 12/24/2015 [facility] HEMATOLOGY MCH 27.2 pg 27.0 - 31.0 12/24/2015 [facility] HEMATOLOGY MCV 83.4 fL 80.0 - 98.0 12/24/2015 [facility] HEMATOLOGY Hct 36.7 % 36.0 - 48.0 12/24/2015 [facility] HEMATOLOGY WBC 11.3 K/CMM 3.7 - 10.4 12/24/2015 [facility] HEMATOLOGY Basophils # 0.1 K/CMM 0.0 - 0.2 12/24/2015 [facility] HEMATOLOGY Monocytes # 0.5 K/CMM 0.0 - 0.8 12/24/2015 [facility] HEMATOLOGY Eosinophils # 0.2 K/CMM 0.0 - 0.5 12/24/2015 [facility] HEMATOLOGY Lymphocytes # 3.1 K/CMM 1.0 - 5.5 12/24/2015 [facility] HEMATOLOGY Eosinophils 1.8 % 0.0 - 4.0 12/24/2015 [facility] HEMATOLOGY Basophils 0.5 % 0.0 - 1.0 12/24/2015 [facility] HEMATOLOGY Segs-Bands # 7.4 K/CMM 1.5 - 8.1 12/24/2015 [facility] HEMATOLOGY Monocytes 4.7 % 2.0 - 12.0 12/24/2015 [facility] HEMATOLOGY Segs 65.5 % 45.0 - 75.0 12/24/2015 [facility] HEMATOLOGY Lymphocytes 27.5 % 20.0 - 40.0 12/24/2015 [facility] URINE AND STOOL UA Ketones Negative 12/24/2015 [facility] URINE AND STOOL UA Urobilinogen <=1.0 mg/dL 0.1 - 1.0 12/24/2015 [facility] URINE AND STOOL UA Mucus Few /LPF None Seen /LPF 12/24/2015 [facility] URINE AND STOOL UA RBC 1 /HPF 0 - 2 12/24/2015 [facility] URINE AND STOOL UA Bacteria Few /HPF None Seen /HPF 12/24/2015 [facility] URINE AND STOOL UA Glucose Negative mg/dL Negative mg/dL 12/24/2015 [facility] URINE AND STOOL UA Nitrite Positive *ABN* (12/24/15 12:50 AM) Negative 12/24/2015 [facility] URINE AND STOOL UA Leuk Est Trace *ABN* (12/24/15 12:50 AM) Negative 12/24/2015 [facility] URINE AND STOOL UA Sq Epi Many /LPF Few /LPF 12/24/2015 [facility] URINE AND STOOL UA WBC 7 /HPF 0 - 5 12/24/2015 [facility] URINE AND STOOL UA Bili Negative *NA* (12/24/15 12:50 AM) Negative 12/24/2015 [facility] URINE AND STOOL UA Blood Negative (12/24/15 12:50 AM) Negative 12/24/2015 [facility] URINE AND STOOL UA Turbidity Marked *ABN* (12/24/15 12:50 AM) Clear 12/24/2015 [facility] URINE AND STOOL UA Color Yellow *NA* (12/24/15 12:50 AM) Yellow 12/24/2015 [facility] URINE AND STOOL UA Protein Negative mg/dL Negative mg/dL 12/24/2015 [facility] URINE AND STOOL UA pH 5.0 5.0 - 8.0 12/24/2015 [facility] URINE AND STOOL UA Spec Grav 1.019 <=1.030 12/24/2015 [facility] URINE CHEM U Preg Negative (12/24/15 12:50 AM) Negative 12/24/2015 [facility] ED Abdomen/Pelvis IV contrast only CT ED [...] Barbra Castillo MD 12/24/15 03:43 FINAL REPORT [facility] CHEM PANEL eGFR 91 mL/min/1.73m2 09/15/2015 Result [...] should be multiplied by the estimated BMI. [facility] CHEM PANEL Potassium Lvl 4.3 meq/L 3.5 - 5.1 09/15/2015 Result Comment: sl hemolyzed [facility] CHEM PANEL Calcium Lvl 8.8 mg/dL 8.5 - 10.5 09/15/2015 [facility] CHEM PANEL BUN 12 mg/dL 7 - 22 09/15/2015 [facility] CHEM PANEL Glucose Lvl 121 mg/dL 70 - 99 09/15/2015 [facility] CHEM PANEL Sodium Lvl 137 meq/L 135 - 145 09/15/2015 [facility] CHEM PANEL Creatinine Lvl 0.82 mg/dL 0.50 - 1.40 09/15/2015 [facility] CHEM PANEL Chloride Lvl 106 meq/L 95 - 109 09/15/2015 [facility] CHEM PANEL CO2 22 meq/L 24 - 32 09/15/2015 [facility] ENDOCRINOLOGY S Preg Negative *NA* (09/15/15 4:43 AM) Negative 09/15/2015 [facility] HEMATOLOGY WBC 9.7 K/CMM 3.7 - 10.4 09/15/2015 [facility] HEMATOLOGY Hgb 12.3 g/dL 12.0 - 16.0 09/15/2015 [facility] HEMATOLOGY MCH 28.8 pg 27.0 - 31.0 09/15/2015 [facility] MCHC 33.6 g/dL 32.0 - 36.0 09/15/2015 [facility] HEMATOLOGY MCV 85.7 fL 80.0 - 98.0 09/15/2015 [facility] HEMATOLOGY Hct 36.7 % 36.0 - 48.0 09/15/2015 [facility] HEMATOLOGY RBC 4.28 M/CMM 4.20 - 5.40 09/15/2015 [facility] MPV 8.6 fL 7.4 - 10.4 09/15/2015 [facility] HEMATOLOGY RDW 14.3 % 11.5 - 14.5 09/15/2015 [facility] Platelet 253 K/CMM 133 - 450 09/15/2015 [facility] HEMATOLOGY Eosinophils 2.2 % 0.0 - 4.0 09/15/2015 [facility] HEMATOLOGY Monocytes 4.4 % 2.0 - 12.0 09/15/2015 [facility] HEMATOLOGY Lymphocytes # 2.5 K/CMM 1.0 - 5.5 09/15/2015 [facility] HEMATOLOGY Monocytes # 0.4 K/CMM 0.0 - 0.8 09/15/2015 [facility] HEMATOLOGY Basophils 0.6 % 0.0 - 1.0 09/15/2015 [facility] HEMATOLOGY Segs-Bands # 6.5 K/CMM 1.5 - 8.1 09/15/2015 [facility] HEMATOLOGY Eosinophils # 0.2 K/CMM 0.0 - 0.5 09/15/2015 [facility] HEMATOLOGY Basophils # 0.1 K/CMM 0.0 - 0.2 09/15/2015 [facility] HEMATOLOGY Segs 67.3 % 45.0 - 75.0 09/15/2015 [facility] HEMATOLOGY Lymphocytes 25.5 % 20.0 - 40.0 09/15/2015 [facility] URINE AND STOOL UA Urobilinogen <=1.0 mg/dL 0.1 - 1.0 09/15/2015 [facility] URINE AND STOOL UA Ketones Negative 09/15/2015 [facility] URINE AND STOOL UA Leuk Est Negative (09/15/15 4:30 AM) Negative 09/15/2015 [facility] URINE AND STOOL UA Nitrite Negative (09/15/15 4:30 AM) Negative 09/15/2015 [facility] URINE AND STOOL UA WBC 3 /HPF 0 - 5 09/15/2015 [facility] URINE AND STOOL UA Sq Epi Many /LPF Few /LPF 09/15/2015 [facility] URINE AND STOOL UA Bacteria Occasional /HPF None Seen /HPF 09/15/2015 [facility] URINE AND STOOL UA RBC 2 /HPF 0 - 2 09/15/2015 [facility] URINE AND STOOL UA Mucus Few /LPF None Seen /LPF 09/15/2015 [facility] URINE AND STOOL UA Hyal Cast 1 /LPF 0 - 2 09/15/2015 [facility] URINE AND STOOL UA Color Light Yellow *NA* (09/15/15 4:30 AM) Yellow 09/15/2015 [facility] URINE AND STOOL UA Turbidity Slight *ABN* (09/15/15 4:30 AM) Clear 09/15/2015 [facility] URINE AND STOOL UA Spec Grav 1.015 <=1.030 09/15/2015 [facility] URINE AND STOOL UA Glucose Negative mg/dL Negative mg/dL 09/15/2015 [facility] URINE AND STOOL UA Protein Negative mg/dL Negative mg/dL 09/15/2015 [facility] URINE AND STOOL UA pH 5.0 5.0 - 8.0 09/15/2015 [facility] URINE AND STOOL UA Bili Negative *NA* (09/15/15 4:30 AM) Negative 09/15/2015 [facility] URINE AND STOOL UA Blood Negative (09/15/15 4:30 AM) Negative 09/15/2015 [facility] Renal Stone CT Renal Stone CT EXAM: [...] Chao Aldridge MD 09/15/15 06:28 FINAL REPORT [facility] Vital Signs Vital Sign Value Date Comments Source Systolic (mm Hg) 102 05/09/2016 [facility] Diastolic (mm Hg) 59 05/09/2016 [facility] Systolic (mm Hg) 102 05/09/2016 [facility] Diastolic (mm Hg) 58 05/09/2016 [facility] Systolic (mm Hg) 96 05/09/2016 [facility] Diastolic (mm Hg) 51 05/09/2016 [facility] Respitory Rate 17 05/09/2016 [facility] Respitory Rate 18 05/09/2016 [facility] Respitory Rate 18 05/09/2016 [facility] Heart Rate 86 05/07/2016 [facility] Temperature Oral (F) 98.2 F 05/07/2016 [facility] Height 157.48 cm 05/07/2016 [facility] Weight 134.545 05/07/2016 [facility] BMI Calculated 54.25 05/07/2016 [facility] Heart Rate 80 01/19/2016 [facility] Systolic (mm Hg) 126 01/19/2016 [facility] Diastolic (mm Hg) 76 01/19/2016 [facility] Respitory Rate 20 01/19/2016 [facility] Temperature Oral (F) 98.2 F 01/19/2016 [facility] Temperature Oral (F) 98.4 F 01/19/2016 [facility] Systolic (mm Hg) 130 01/19/2016 [facility] Diastolic (mm Hg) 71 01/19/2016 [facility] Heart Rate 90 01/19/2016 [facility] Respitory Rate 18 01/19/2016 [facility] Systolic (mm Hg) 106 01/19/2016 [facility] Diastolic (mm Hg) 65 01/19/2016 [facility] Temperature Oral (F) 98.2 F 01/19/2016 [facility] Heart Rate 73 01/19/2016 [facility] Respitory Rate 18 01/19/2016 [facility] Weight 135.909 01/16/2016 [facility] Height 154.94 cm 01/16/2016 [facility] BMI Calculated 56.61 01/16/2016 [facility] Heart Rate 83 01/10/2016 [facility] Respitory Rate 20 01/10/2016 [facility] Temperature Oral (F) 97.6 F 01/10/2016 [facility] Height 154.94 cm 01/10/2016 [facility] Weight 137.273 01/10/2016 [facility] BMI Calculated 57.18 01/10/2016 [facility] Systolic (mm Hg) 129 01/10/2016 [facility] Diastolic (mm Hg) 84 01/10/2016 [facility] Systolic (mm Hg) 118 12/24/2015 [facility] Diastolic (mm Hg) 66 12/24/2015 [facility] Respitory Rate 18 12/24/2015 [facility] Weight 128.9 12/24/2015 [facility] Temperature Oral (F) 98.4 F 12/24/2015 [facility] Heart Rate 112 12/24/2015 [facility] Respitory Rate 20 12/24/2015 [facility] Systolic (mm Hg) 120 12/24/2015 [facility] Diastolic (mm Hg) 84 12/24/2015 [facility] Temperature Oral (F) 98.7 F 09/15/2015 [facility] Heart Rate 88 09/15/2015 [facility] Respitory Rate 16 09/15/2015 [facility] Systolic (mm Hg) 126 09/15/2015 [facility] Diastolic (mm Hg) 66 09/15/2015 [facility] Weight 130.636 09/15/2015 [facility] BMI Calculated 54.42 09/15/2015 [facility] Systolic (mm Hg) 127 09/15/2015 [facility] Diastolic (mm Hg) 84 09/15/2015 [facility] Heart Rate 94 09/15/2015 [facility] Temperature Oral (F) 97.9 F 09/15/2015 [facility] Respitory Rate 16 09/15/2015 [facility] Height 154.94 cm 09/15/2015 [facility] Encounters Location Location Details Encounter Type Encounter Number Reason For Visit Attending Provider ADM Date DC Date Status Source [facility] [id number] vanessadaniel Fortunato 09/15/2015 09/15/2015 [facility] Emergency [id number] Gumaro Santamaria 12/24/2015 12/24/2015 [facility] Outpatient Imaging [facility] Outpt Diag Services [id number] Deirdre Ethan 01/02/2016 01/03/2016 [facility] Emergency [id number] Ky Bucio 01/10/2016 01/10/2016 [facility] Inpatient [id number] Erick Willis 01/17/2016 01/19/2016 [facility] Outpatient [id number] BERNARD LE 05/03/2016 Active [facility] Outpatient [id number] VIRAL SMITH 05/09/2016 Active [facility] Day Surgery [id number] Bernard Le 05/09/2016 05/09/2016 [facility] Outpatient [id number] VIRAL SMITH 05/17/2016 Active [facility] Procedures Procedure Code Date Perfomer Comments Source Colonoscopy [id number] 01/16/2016 [facility] Esophagogastroduodenoscopy [id number] 01/16/2016 [facility]
[2018-06-09] MEDS ORDERED: CLONIDINE HCL 0.1 MG TAB PO ONE (16:30)
[2018-06-09 16:42] LABS: BASOPHILS % 0.3 % (0.0-1.0); EOSINOPHILS # (AUTO) 0.2 (0.0-0.4); EOSINOPHILS % 2.5 % (0.0-6.0); HEMATOCRIT 41.3 % (34.2-44.1); HEMOGLOBIN 13.6 g/dL (12.0-16.0); LYMPHOCYTES # (AUTO) 2.7 (1.0-3.2); LYMPHOCYTES % 28.4 % (18.0-39.1); MEAN CORPUSCULAR HEMOGLOBIN 29.9 pg (28-32); MEAN CORPUSCULAR HGB CONC 32.9 g/dL (31-35); MEAN CORPUSCULAR VOLUME 90.8 fL (81-99); MONOCYTES # (AUTO) 0.4 (0.2-0.8); MONOCYTES % 3.8 % (4.4-11.3); NEUTROPHILS # (AUTO) 6.1 (2.1-6.9); NEUTROPHILS % 64.7 % (38.7-80.0); PLATELET COUNT 258 x10e3/uL (140-360); RED BLOOD COUNT 4.55 x10e6/uL (3.6-5.1); RED CELL DISTRIBUTION WIDTH 13.4 % (11.7-14.4)
[2018-06-09 16:48] LABS: INR 0.91; PARTIAL THROMBOPLASTIN TIME 24.6 seconds (23.8-35.5); PROTHROMBIN TIME 12.7 seconds (11.9-14.5)
[2018-06-09 16:55] LABS: ALANINE AMINOTRANSFERASE 21 IU/L (0-55); ALBUMIN 3.9 g/dL (3.5-5.0); ALBUMIN/GLOBULIN RATIO 0.9 (0.8-2.0); ALKALINE PHOSPHATASE 103 IU/L (40-150); BLOOD UREA NITROGEN 13 mg/dL (7-26); BUN/CREATININE RATIO 17 (6-25); CALCIUM 9.8 mg/dL (8.4-10.2); CARBON DIOXIDE 23 mmol/L (22-29); CHLORIDE 107 mmol/L (98-107); CREATINE KINASE 43 IU/L (29-168); CREATININE, SERUM 0.76 mg/dL (0.57-1.11); EST GLOMERULAR FILTRATION RATE > 60 ML/MIN (60-); GLUCOSE 102 mg/dL (74-118); SODIUM 140 mmol/L (136-145)
--- NOTE | 2018-06-09 17:15 | Diagnostic Imaging Report ---
EXAMINATION: CHEST SINGLE (NOT PORTABLE) INDICATION: Chest pain COMPARISON: None FINDINGS: TUBES and LINES: None. LUNGS: Lungs are well inflated. Perihilar peribronchial hazy opacity could be due to bronchitis. There is no evidence of pneumonia or pulmonary edema. PLEURA: No pleural effusion or pneumothorax. HEART AND MEDIASTINUM: The cardiomediastinal silhouette is unremarkable. BONES AND SOFT TISSUES: No acute osseous lesion. Soft tissues are unremarkable. UPPER ABDOMEN: No free air under the diaphragm. IMPRESSION: Perihilar peribronchial hazy opacity could be due to bronchitis. Signed by: Dr. Giorgi Ch M.D. on 06/09/2018 5:12 PM
[2018-06-09 17:44] LABS: CLARITY,URINE SL CLOUDY (CLEAR); COLOR,URINE YELLOW (YELLOW)
[2018-06-09 17:45] LABS: BILIRUBIN,URINE NEGATIVE (NEGATIVE); KETONES,URINE NEGATIVE (NEGATIVE); LEUKOCYTE ESTERASE ,URINE NEGATIVE (NEGATIVE); NITRITE,URINE NEGATIVE (NEGATIVE); PREGNANCY TEST, URINE NEGATIVE (NEGATIVE); PROTEIN,URINE DIPSTICK NEGATIVE (NEGATIVE); URINE UROBILINOGEN 0.2 mg/dL (0.2 - 1)
[2018-06-09 17:54] LABS: BACTERIA,URINE MODERATE /HPF; EPITHELIAL CELLS,URINE MANY /LPF; TRANSITIONAL EPI CELLS,URINE MODERATE
[2018-06-09] MEDS ORDERED: SODIUM CHLORIDE FLUSH 10 ML SYR INJ PRN (19:15)
[2018-06-09] MEDS ORDERED: MORPHINE SULFATE INJ 4 MG/ML INJ 1ML IV PRN (19:15)
[2018-06-09] MEDS ORDERED: MORPHINE SULFATE 2 MG/ML SYR 1ML IV PRN (19:15)
[2018-06-09] MEDS ORDERED: ONDANSETRON HCL INJ 2MG/ML 2ML 2 MG/ML VIAL IV PRN (19:15)
[2018-06-10] VITALS (7 sets, daily range): BP systolic 122–137; BP diastolic 69–80
[2018-06-10 04:11] LABS: CREATINE KINASE 34 IU/L (29-168)
--- NOTE | 2018-06-10 06:39 | NUR ---
The patient is laying in bed, eyes closed, respirations are even and unlabored. The patient is in no apparent distress, appear comfortable. at bed side. Bed in low position, side rails up, wheels locked and call light within reach
--- NOTE | 2018-06-10 06:50 | NUR ---
HANDOFF REPORT RECEIVED, PATIENT AWARE OF CHANGE AND IN NO DISTRESS. FAMILY AT BEDSIDE, CALL IBARRA WITHIN REACH AND BED IN LOWEST POSITION
[2018-06-10 07:36] LABS: BASOPHILS % 0.3 % (0.0-1.0); EOSINOPHILS # (AUTO) 0.3 (0.0-0.4); EOSINOPHILS % 3.3 % (0.0-6.0); HEMATOCRIT 35.8 % (34.2-44.1); LYMPHOCYTES # (AUTO) 2.5 (1.0-3.2); LYMPHOCYTES % 27.1 % (18.0-39.1); MEAN CORPUSCULAR HEMOGLOBIN 29.7 pg (28-32); MEAN CORPUSCULAR HGB CONC 32.7 g/dL (31-35); MEAN CORPUSCULAR VOLUME 90.9 fL (81-99); MONOCYTES # (AUTO) 0.5 (0.2-0.8); MONOCYTES % 5.4 % (4.4-11.3); NEUTROPHILS # (AUTO) 5.9 (2.1-6.9); NEUTROPHILS % 63.6 % (38.7-80.0); PLATELET COUNT 238 x10e3/uL (140-360); RED BLOOD COUNT 3.94 x10e6/uL (3.6-5.1); RED CELL DISTRIBUTION WIDTH 13.6 % (11.7-14.4)
[2018-06-10 07:47] LABS: ALANINE AMINOTRANSFERASE 18 IU/L (0-55); ALBUMIN 3.2 g/dL (3.5-5.0); ALBUMIN/GLOBULIN RATIO 0.8 (0.8-2.0); ALKALINE PHOSPHATASE 84 IU/L (40-150); ANION GAP 9.9 mmol/L (8-16); BLOOD UREA NITROGEN 14 mg/dL (7-26); BUN/CREATININE RATIO 19 (6-25); CALCIUM 9.2 mg/dL (8.4-10.2); CARBON DIOXIDE 25 mmol/L (22-29); CHLORIDE 105 mmol/L (98-107); CHOL/HDL RATIO 4.9 (3.0-3.6); CHOLESTEROL 143 MD/DL (0-199); CREATININE, SERUM 0.72 mg/dL (0.57-1.11); EST GLOMERULAR FILTRATION RATE > 60 ML/MIN (60-); GLUCOSE 112 mg/dL (74-118); HDL CHOLESTEROL 29 MG/DL (40-60); LDL CHOLESTEROL 89 MG/DL (60-130); POTASSIUM 3.9 mmol/L (3.5-5.1); SODIUM 136 mmol/L (136-145); TRIGLYCERIDES 126 MG/DL (0-149)
[2018-06-10 07:58] LABS: HEMOGLOBIN 11.7 g/dL (12.0-16.0)
[2018-06-10] MEDS ORDERED: ACETAMINOPHEN 325 MG TAB PO PRN (09:45)
--- NOTE | 2018-06-10 10:43 | NUR ---
SOCIAL WORK INITIAL ASSESSMENT Ela Teacher to bedside to discuss plan of care with patient/family. CM/SW role and care transitions discussed. Anticipated discharge plan discussed along with duration of care. CM/SW discussed patients right to make decisions in care. CM/SW work hours given. Patient lives: IN HOUSE WITH FAMILY Admit/Transfer: VIA ED POA/Emergency contact: GABRIEL LYLES [phone] Current/Previous Home Health: NONE PCP/Follow-up Care: OSCAR MILLER Current/Previous DME: NONE Other Services: NONE Employment Status: [employer] Areas of Concerns: NONE Referral Needs: NONE Education Needs: NONE IMM/LI given and signed (if applicable): NA Goal for discharge: RETURN HOME WITH NO NEEDS CM/SW left business card at the bedside with contact information. Name and number was also written on the patients whiteboard. Patient verbalized understanding of discussion. CM will follow-up with ongoing discharge and transition of care needs.
--- NOTE | 2018-06-10 12:30 | NUR ---
DISCHARGE INSTRUCTIONS GIVEN TO THE PATIENT, PATIENT VERBALIZED UNDERSTANDING. IV DISCONTINUED AT THIS TIME, CATHETER IN TACT AND SMALL DRESSING APPLIED. PATIENT REFUSED WHEELCHAIR ASSISTANCE AND WILL BE ESCORTED TO PERSONAL AUTO FOR TO DRIVE HOME.
--- NOTE | 2018-06-11 03:05 | Discharge Summary ---
PRIMARY CARE DOCTOR: Rik Chisholm MD. FINAL DIAGNOSIS: Noncardiac chest pain. Possibly due to peripheral neuropathy. SECONDARY DIAGNOSES: 1. Morbid obesity with unintentional weight gain. 2. Chronic daily morning nausea. CONSULTANTS: None. PROCEDURES/STUDIES PERFORMED: None. HISTORY: Per [facility] HOSPITAL COURSE: The patient has some fluttering feeling. Her chest wall feels like a vibration. The patient is on telemetry. No arrhythmia reported. The patient had 2 negative troponins, thus no acute myocardial infarction. I highly doubt this is a cardiac ischemia given the sharp nature, possibly due to peripheral neuropathy. At this time, the patient is stable for discharge. As far as the chronic nausea and unintentional 80 pound weight gain over 1-1/2 years, I will defer this to outpatient workup. I have updated her primary care doctor about this visit. Of note, the patient's chest x-ray was read out as possible bronchitis, however, the patient clinically has no symptoms consistent with bronchitis. Likely it is a poor quality chest x-ray due to her morbid obesity. CONDITION ON DISCHARGE: Stable. DISCHARGE MEDICATIONS: Please see medication reconciliation form. Yiching MD SHERLY Roland/BRANDAN /[id number] cc: [facility]
== END 2018-06-10 12:32 | disposition home or self-care (01) ==
LOC: ER 15:49 → ERHOLD 19:15 → IMCU 06-10 00:43
PROVIDERS: ADMIT Internal Medicine; ATTEND Internal Medicine
DX: R07.89 Other chest pain (principal); I16.9 Hypertensive crisis, unspecified; Z83.3 Family history of diabetes mellitus; Z82.49 Family history of ischemic heart disease and other diseases of the circulatory system; E66.01 Morbid (severe) obesity due to excess calories; Z68.44 Body mass index [BMI] 60.0-69.9, adult; R11.0 Nausea
CPT/HCPCS: 36415 ×2; 71045; 80053 ×2; 80061; 81001; 81025; 82550 ×2; 82553 ×2; 84484 ×2; 85025 ×2; 85610; 85730; 93005; 99284; G0378 ×2; J2270; J2405

== ENCOUNTER 2019-06-30 00:02 | Emergency (ER) | payer OTHER ==
[~2019-06-30] VITALS: Ht 154.9 cm; Wt 99.8 kg
[2019-06-30] MEDS ORDERED: KETOROLAC TROMETHAMINE 60 MG/2 ML VIAL IM ONE (00:15)
--- NOTE | 2019-06-30 01:11 | NUR ---
CHIP APPLYING MACHINE TENDER HERE AT THIS TIME FOR LT LOWER LEG DOPPLER.
--- NOTE | 2019-06-30 03:59 | Diagnostic Imaging Report ---
Exam: Right tibia/fibular radiographs-2 views; left tibia/fibular radiographs-2 views History: Leg pain. Comparison: None. Findings: Right tibia/fibula: No evidence of acute fracture, malalignment, or soft tissue abnormality. Plantar calcaneal spur. Mild Achilles enthesopathy. Left tibia/fibula: No evidence of acute fracture, malalignment, or soft tissue abnormality. Plantar calcaneal spur. Mild Achilles enthesopathy. Impression: No acute radiographic abnormality. Signed by: Dr. Blas Niño MD on 06/30/2019 3:56 AM
== END 2019-06-30 02:23 | disposition home or self-care (01) ==
LOC: ER 00:02
DX: M79.662 Pain in left lower leg (principal); M79.661 Pain in right lower leg; E11.9 Type 2 diabetes mellitus without complications; E03.9 Hypothyroidism, unspecified
CPT/HCPCS: 73590; 93970; 96372; 99284; J1885

== ENCOUNTER 2022-08-28 15:56 | Emergency (ER) | payer OTHER ==
[~2022-08-28] VITALS: Ht 154.9 cm; Wt 142.4 kg
[2022-08-28 16:08] VITALS: O2SAT 99
[2022-08-28] MEDS ORDERED: ONDANSETRON HCL 4 MG ORAL DISINTEGRATING TAB PO ONE (16:30)
[2022-08-28] MEDS ORDERED: ACETAMINOPHEN 325 MG TAB PO ONE (16:30)
[2022-08-28] MEDS ORDERED: ONDANSETRON ODT4 MG PO (17:22)
== END 2022-08-28 18:05 | disposition home or self-care (01) ==
LOC: ER 16:17
DX: S06.0X0A Concussion without loss of consciousness, initial encounter (principal); R11.0 Nausea; W22.09XA Striking against other stationary object, initial encounter; Y92.89 Other specified places as the place of occurrence of the external cause; I10 Essential (primary) hypertension; E11.9 Type 2 diabetes mellitus without complications; E03.9 Hypothyroidism, unspecified; Z98.84 Bariatric surgery status
CPT/HCPCS: 70450; 72125; 93005; 99284; Q0162

== ENCOUNTER 2023-10-26 22:46 | Emergency (ER) | payer OTHER ==
[~2023-10-26] VITALS: Ht 154.9 cm; Wt 109.8 kg
[~2023-10-26 22:46] MED LIST: MEDROL4 M2 PO; ONDANSETRON ODT4 MG PO; ORPHENADRINE C100 MG PO
[2023-10-26 23:54] VITALS: PULSE 81; RESP 18; TEMP 98.2; O2SAT 100
[2023-10-27 00:14] LABS: BASOPHILS % 0.3 % (0.0-1.0); EOSINOPHILS # (AUTO) 0.2 (0.0-0.4); EOSINOPHILS % 1.7 % (0.0-6.0); HEMATOCRIT 37.1 % (34.2-44.1); HEMOGLOBIN 12.4 g/dL (12.0-16.0); LYMPHOCYTES # (AUTO) 3.3 (1.0-3.2); LYMPHOCYTES % 34.2 % (18.0-39.1); MEAN CORPUSCULAR HEMOGLOBIN 30.6 pg (28-32); MEAN CORPUSCULAR HGB CONC 33.4 g/dL (31-35); MEAN CORPUSCULAR VOLUME 91.6 fL (81-99); MONOCYTES # (AUTO) 0.5 (0.2-0.8); MONOCYTES % 5.1 % (4.4-11.3); NEUTROPHILS # (AUTO) 5.6 (2.1-6.9); NEUTROPHILS % 58.4 % (38.7-80.0); PLATELET COUNT 176 x10e3/uL (140-360); RED BLOOD COUNT 4.05 x10e6/uL (3.6-5.1); RED CELL DISTRIBUTION WIDTH 13.2 % (11.7-14.4); WHITE BLOOD COUNT 9.65 x10e3/uL (4.8-10.8)
[2023-10-27 00:31] LABS: ALBUMIN/GLOBULIN RATIO 1.1 (0.8-2.0); ANION GAP 14.1 mmol/L (8-16); BILIRUBIN,TOTAL 0.6 mg/dL (0.2-1.2); CALCIUM 9.5 mg/dL (8.4-10.2); CREATININE, SERUM 0.81 mg/dL (0.57-1.11); POTASSIUM 4.1 mmol/L (3.5-5.1); TOTAL PROTEIN 7.6 g/dL (6.5-8.1)
== END 2023-10-27 02:10 | disposition home or self-care (01) ==
LOC: ER 10-27 00:01
DX: R20.2 Paresthesia of skin (principal); S90.31XA Contusion of right foot, initial encounter; W20.8XXA Other cause of strike by thrown, projected or falling object, initial encounter; Y92.89 Other specified places as the place of occurrence of the external cause; I10 Essential (primary) hypertension; E11.9 Type 2 diabetes mellitus without complications; E03.9 Hypothyroidism, unspecified; Z82.49 Family history of ischemic heart disease and other diseases of the circulatory system; Z98.84 Bariatric surgery status
CPT/HCPCS: 36415; 80053; 83735; 85025; 99283